=== PATIENT | male | born 1955 | race Caucasian/White ===

== ENCOUNTER 2021-02-04 16:03 | Inpatient (IN) | payer OTHER, MEDICARE, SELFPAY ==
[2021-02-04 18:08] VITALS: BP 169/99; PULSE 77; RESP 20; TEMP 36.7; O2SAT 84; BMI 48.8
[2021-02-04 18:19] VITALS: BP 165/128; PULSE 71; RESP 20; TEMP 36.7; O2SAT 91
--- NOTE | 2021-02-04 19:19 | XRR_ITS ---
PROCEDURE INFORMATION: Exam: XR Right Tibia and Fibula Exam date and time: 02/04/2021 7:19 PM Age: 65 years old Clinical indication: Pain; Lower leg; Right; Additional info: Leg infection TECHNIQUE: Imaging protocol: XR Right tibia and fibula. Views: 2 views. COMPARISON: No relevant prior studies available. FINDINGS: Bones/joints: There is moderate degenerative disease at the knee. The tibia and fibula are unremarkable. The ankle is normal. Soft tissues: There is diffuse soft tissue swelling in the lower leg and ankle. XR/XR tibia fibula RT 2V [id number] IMPRESSION: 1. No acute osseous abnormality. 2. Diffuse soft tissue edema in the lower leg. Radiation Dose CTDIVOL = (mGy): DLP = (mGy-cm)
--- NOTE | 2021-02-04 19:19 | XRR_ITS ---
PROCEDURE INFORMATION: Exam: XR Left Tibia and Fibula Exam date and time: 02/04/2021 7:19 PM Age: 65 years old Clinical indication: Pain; Lower leg; Left; Additional info: Leg infection TECHNIQUE: Imaging protocol: XR Left tibia and fibula. Views: 2 views. COMPARISON: No relevant prior studies available. FINDINGS: Bones/joints: There is mild degenerative disease at the knee. The tibia and fibula are normal. The ankle is normal. Soft tissues: There is diffuse soft tissue edema in the lower leg. XR/XR tibia fibula LT 2V [id number] IMPRESSION: 1. No acute osseous abnormality. 2. Soft tissue edema in the lower leg. Radiation Dose CTDIVOL = (mGy): DLP = (mGy-cm)
[2021-02-04 19:54] LABS: Basophils # 0.1 10^3/uL (0.0-0.1); Eosinophils # 0.2 10^3/uL (0.0-0.8); Eosinophils % 2.7 %; Hematocrit 53.7 % (42.0-52.0); Lymphocytes # 1.1 10^3/uL (0.8-4.8); Lymphocytes % 12.6 %; Mean Corpuscular HGB Conc 31.7 g/dL (30.0-36.0); Mean Corpuscular Volume 104.3 fl (80-94); Mean Platelet Volume 9.2 fL (7.4-10.4); Monocytes # 0.8 10^3/uL (0.2-0.9); Monocytes % 9.9 %; Neutrophils # 6.18 10^3/uL (1.8-7.7); Neutrophils % 73.6 %; Nucleated Red Blood Cells % 0 %; Platelet Count 260 10^3/cmm (130-400); Red Blood Count 5.15 10^6/uL (4.1-5.3); Red Cell Distribution Width 14.3 % (12.1-15.1); White Blood Count 8.4 10^3/uL (4.0-10.0)
[2021-02-04] MEDS: HYDROmorphone 1 mg/mL INJ 1 mL IVP (20:03)
[2021-02-04] MEDS: piperacillin-tazobactam 4.5 GM in sodium chloride 0.9% (plus) 50 ML IV (20:03)
[2021-02-04 20:09] LABS: Lactate (Lactic Acid level) 1.2 mmol/L (0.5-2.2)
[2021-02-04 20:10] LABS: Anion Gap 10.2 (5-19); Blood Urea Nitrogen 12 mg/dL (8-23); C Reactive Protein 36.4 mg/L (0.0-4.9); Calcium 9.2 mg/dL (8.5-10.5); Carbon Dioxide 36 mmol/L (22-29); Chloride 99 mmol/L (98-107); Glomerular Filtration Rate 135.2 mL/min (90-130); Glucose 95 mg/dL (65-115); Osmolality Calculated 292 mOsm/kg (285-295); Potassium 4.2 mmol/L (3.5-5.1); Sodium 141 mmol/L (136-145)
--- NOTE | 2021-02-04 20:11 | W.ED.GENADLT ---
HPI - General Adult General: Chief complaint: Wound/Laceration Stated complaint: [facility] Time Seen by Provider: 02/04/21 17:16 History of Present Illness: HPI narrative: Patient is a 65-year-old male with a history of chronic venous stasis who presents the emergency room with 2 weeks of worsening lower extremity infection. Patient was initially seen 2 weeks ago not at home emergency room and was prescribed amoxicillin for weeping of both legs. Since then, patient has noticed crusting and worsening pain in the legs bilaterally. Patient presents the emergency room today given worsening symptoms. Patient says that he has had extreme pain in the lower extremity. Denies any fever or chills, pus formation but has noticed significant foul smell in the legs. Onset:2 weeks ago Duration:2 weeks Location:home Severity:moderate Review of Systems Narrative: Constitutional: No fever, no chills. HEENT: No vision changes CV: No chest pain, no palpitations PULM: no cough, no dyspnea. GI: No abdominal pain, no N/V/D. : No dysuria MSKEL: No muscle pain SKIN: +crusting scaly wounds circumferentially on the legs NEURO: No headache, no focal weakness. HEME: No visible bruises PSYCH: Normal mood PFSH ED PFSH: Social History (Updated 05/04/19 @ 09:07 by Chilango Greco LPN) Smoking and tobacco status: current every day smoker Alcohol intake: never Physical Exam Narrative: EXAM NARRATIVE: Head: Atraumatic Eyes: PERRL, conjunctiva without injection ENT: Mucous membrane moist NECK: Supple, ROM intact LUNGS: LCTAB, no crackles/rhonchi CV: RRR ABDOMEN: Soft, nontender in all quadrants EXTREMITY: 3+ lower extremity edema with circumferential crusting tender to palpation, no erythema/crepitus/or bulla. One area of ulceration on the posterior aspect of the L leg. Neurovascular exam intact in the lower extremities. SKIN: No rash or erythema NEURO: Awake and alert, no focal motor deficits PSYCH: Normal mood and affect Course Vital Signs: Vital signs: Vital Signs Temperature 98.0 F 02/04/21 18:19 Pulse Rate 74 02/04/21 20:17 Respiratory Rate 20 H 02/04/21 20:17 Blood Pressure 133/80 02/04/21 20:17 Pulse Oximetry 94 02/04/21 20:17 MDM - General Adult MDM Narrative: Medical decision making narrative: Patient is a 65-year-old male presenting to the emergency room with worsening infection of lower extremity bilaterally x2 weeks. On exam, patient has significant crusting and excoriation of the lower extremity suggestive possible superimposed Pseudomonas infection over lower extremity edema. Lab work-up showed white count 8.4. Patient is hemoconcentrated at 17.0. Patient status post 1 L fluid. Patient is given vancomycin and Zosyn for coverage of empiric infection. Significant nature of the infection, patient will be at the hospital for observation and to antibiotics. Disposition: Admission Lab Data: Labs: Lab Results 02/04/21 02/04/21 02/04/21 19:40 19:40 19:40 WBC 8.4 10^3/uL 10^3/ uL (4.0-10.0) RBC 5.15 10^6/uL 10^6 /uL (4.1-5.3) Hgb 17.0 g/dL H g/dL (11.7-16.6) Hct 53.7 % H % (42.0-52.0) MCV 104.3 fl H fl (80-94) MCH 33.0 pg pg (28.0-34.0) MCHC 31.7 g/dL g/dL (30.0-36.0) RDW 14.3 % % (12.1-15.1) Plt Count 260 10^3/cmm 10^3 /cmm (130-400) MPV 9.2 fL fL (7.4-10.4) Neut % (Auto) 73.6 % % Lymph % (Auto) 12.6 % % Antelope % (Auto) 9.9 % % Eos % (Auto) 2.7 % % Baso % (Auto) 1.0 % % Neut # (Auto) 6.18 10^3/uL 10^3 /uL (1.8-7.7) Lymph # (Auto) 1.1 10^3/uL 10^3/ uL (0.8-4.8) Antelope # (Auto) 0.8 10^3/uL 10^3/ uL (0.2-0.9) Eos # (Auto) 0.2 10^3/uL 10^3/ uL (0.0-0.8) Baso # (Auto) 0.1 10^3/uL 10^3/ uL (0.0-0.1) Nucleated RBC % (a uto) 0 % % Nucleated RBCs # 0.0 /100WBC /100W BC ESR Cancelled Sodium 141 mmol/L mmol/L (136-145) Potassium 4.2 mmol/L mmol/L (3.5-5.1) Chloride 99 mmol/L mmol/L (98-107) Carbon Dioxide 36 mmol/L H mmol/ L (22-29) Anion Gap 10.2 (5-19) BUN 12 mg/dL mg/dL (8-23) Creatinine 0.6 mg/dL L mg/dL (0.7-1.2) GFR Calculation 135.2 mL/min H mL /min (90-130) Glucose 95 mg/dL mg/dL (65-115) Calculated Osmolal ity 292 mOsm/kg mOsm/ kg (285-295) Lactate Calcium 9.2 mg/dL mg/dL (8.5-10.5) C-Reactive Protein 36.4 mg/L H mg/L (0.0-4.9) 02/04/21 19:40 WBC RBC Hgb Hct MCV MCH MCHC RDW Plt Count MPV Neut % (Auto) Lymph % (Auto) Antelope % (Auto) Eos % (Auto) Baso % (Auto) Neut # (Auto) Lymph # (Auto) Antelope # (Auto) Eos # (Auto) Baso # (Auto) Nucleated RBC % (a uto) Nucleated RBCs # ESR Sodium Potassium Chloride Carbon Dioxide Anion Gap BUN Creatinine GFR Calculation Glucose Calculated Osmolal ity Lactate 1.2 mmol/L mmol/L (0.5-2.2) Calcium C-Reactive Protein Discharge Plan Discharge Patient Disposition: Admitted As Inpatient Clinical Impression: Leg abrasion, infected Condition: Stable Coding Level of Care Code ED Production Machine Shop Supervisor for Karina Altman
[2021-02-04 20:17] VITALS: BP 133/80; PULSE 74; RESP 20; O2SAT 94
[2021-02-04 20:22] LABS: SARS Covid-2 Antigen Negative (Negative)
[2021-02-04 21:00] VITALS: BP 157/72; PULSE 75; RESP 20; O2SAT 93
[2021-02-04 22:26] VITALS: BP 145/68; PULSE 78; RESP 20; O2SAT 92
[2021-02-04] MEDS: vancomycin 1,000 MG in sodium chloride 0.9% 250 ML 250 MG IV (22:42)
--- NOTE | 2021-02-04 23:09 | PC.NURSE ---
Gave pt sandwich and juice.
--- NOTE | 2021-02-04 23:46 | PC.NURSE ---
Pt sat on side of bed to urinate into urinal; assisted pt back into bed and positioned for comfort.
[2021-02-04] MEDS: nicotine 21 mg Patch 1 PATCH TRANSDERMA (23:49)
[2021-02-05] VITALS (18 sets, daily range): BP systolic 100–142; BP diastolic 62–92; PULSE 71–90; RESP 16–23; TEMP 36.6–36.9; O2SAT 90–100
[2021-02-05] MEDS: enoxaparin 40 mg/0.4 mL Syringe SUBCUT (01:22)
--- NOTE | 2021-02-05 01:41 | PC.PHAR ---
Pharmacokinetic dosing service Date: 02/05/21 Time: 129 Objective: Patient: Alondra Carolina Floor: ED Age: 65 yo Serum creatinine: 0.6 mg/dL Height: 71.0 Inches Weight (kg): 157.757 Diagnosis: Relevant medical/social history: Cultures and sensitivities: Other labs: Assessment: IBW (kg): 75.30 Dosing wt(kg): 108.3 Estimated Creatinine clearance (ml/min): 130 Clearance limited to 130 ml/min to reduce risk of overdosing. CRCL method: Cockcroft and Gault using ibw(default). Drug selected: Vancomycin Loading dose (mg): 0 Vd (liters): 97.5 (factor used: 0.9 L/kg) Jefferson (hr-1): 0.112 Half life (hrs): 6.19 Recommended dose: 2000 mg Interval: 8 hrs Infusion time (hrs): 1.5 Predicted peak (mcg/mL): 31.9 Predicted trough (mcg/mL): 15.40 Adjusted body weight was selected for vancomycin dosing. To switch back, select the total body weight option above. Renal function is stable [ ] /unstable [ ] Recommendations: Give Vancomycin 2000 mg q 8 hrs with an expected Cpeak of 31.9 mcg/ml and an expected Ctrough of 15.40 mcg/ml Renal dosing of other antibiotics (review renal dosing of other medications and list guidelines here): Thank you for the consult, will continue to follow. Signature: Iraida Kelly [facility]
[2021-02-05] MEDS: vancomycin 1,000 MG in sodium chloride 0.9% 250 ML 250 MG IV (02:12)
--- NOTE | 2021-02-05 02:42 | PM.HP ---
Providers/Chief Complaint Admitting Physician: Maryam Chin MD Primary Care Provider: Emy Russ MD Chief Complaint: sores on legs, sent by [facility] History of Present Illness Alondra Carolina is a 65 year old male with a past medical history COPD on home oxygen 2 to 3 L/min, chronic active smoker, chronic lower extremity swelling, lymphedema, recently admitted at [facility] for bilateral lower extremity cellulitis and source per his description. Discharged on amoxicillin per his history. [facility] and there was concern for left lower extremity cellulitis and open wounds for which she was sent over to the emergency room. Here he is noted to have bilateral extensive changes of stasis dermatitis, chronic lymphedema, bilateral lower extremity warm and erythematous, left greater than right at this time. There is also noted to be superficial weeping ulcerations over the left calf which patient states is new. He was recently discharged from [facility] with Lasix and states he has lost 17 pounds since discharge. He estimates his lower extremity swelling to actually be improved over his most recent admission at an outside hospital. no H/o DM. States he had venous and arterial imaging 2 weeks ago during above hospitalization, however states that visualization was difficult. He was told changes are related to lymphedema. Patient is also known to be a chronic smoker, has a history of sleep apnea however noncompliant with CPAP, also started on supplemental O2 reportedly related to his COPD. He is also supposed to be on home nebulization and inhalers, however ran out of the medications and has not used them in a while. No fever chills or other constitutional symptoms. Review of Systems General: Reports: 10 or more systems reviewed and unremarkable except in HPI and below Const: Denies: fever(s), chills or body aches Eyes: Denies: change in vision, blurry vision or photophobia ENMT: Reports: hoarseness; Denies: throat pain, enlarged tonsils, odynophagia or nasal congestion Card: Denies: chest pain, palpitations, irregular heart rhythm, edema, swelling of feet/ankles, lightheadedness, pre-syncope, dyspnea on exertion or orthopnea Resp: Denies: dyspnea, productive cough, non-productive cough, wheezing, stridor, pain on inspiration, change in phlegm color, hemoptysis or chest congestion GI: Denies: abdominal pain, nausea, vomiting, hematemesis, coffee ground emesis, dysphagia, heartburn, diarrhea, constipation, GI cramping, change in stool character, hematochezia or melena : Denies: flank pain, dysuria, urinary frequency, urinary urgency, urinary hesitancy or hematuria Musc: Denies: neck pain, back pain, extremity pain, joint swelling, joint warmth or deformity Neuro: Denies: headache(s), numbness in extremities, weakness in extremities, sensory changes, difficulty walking, frequent falls, dizziness, vertigo, behavioral changes, Slurred speech present or seizure-like activity Psych: Denies: anxiety, depression, suicidal ideation or homicidal ideation Endo: Denies: polyuria, polydipsia, tired all the time, cold intolerance or hot flashes Rohit/Lymph: Denies: easy bruising or easy bleeding Medications/Allergies Home Medications Medication Instructions Recorded Confirmed Last Taken Type aspirin 325 mg tablet 325 mg PO DAILY 05/04/19 05/04/19 Unknown History furosemide 40 mg tablet 40 mg PO DAILY PRN 05/04/19 05/04/19 Unknown History morphine 15 mg immediate release 15 mg PO Q4H PRN tab 05/04/19 05/04/19 Unknown History tablet morphine 60 mg capsule,extended 60 mg PO TID cap 05/04/19 05/04/19 Unknown History release 24 hr multiphase Allergies Allergy/AdvReac Type Severity Reaction Status Date / Time No Known Allergies Allergy Verified 05/04/19 09:02 PFSH Acute PFSH: Medical History COPD (chronic obstructive pulmonary disease) Hypertension Sleep apnea Tobacco dependence Social History Smoking and tobacco status: current every day smoker Alcohol intake: never Vitals/I&O/Wt Last Vital Signs Temp 98.0 F 02/04/21 18:19 Pulse 78 02/04/21 22:26 Resp 20 H 02/04/21 22:26 BP 145/68 02/04/21 22:26 Pulse Ox 92 02/04/21 22:26 02/04/21 02/04/21 02/05/21 14:59 22:59 06:59 Intake Total 50 / 50 250 / 300 Balance 50 / 50 250 / 300 Weight last 48 hrs Weight 158.757 kg Physical Exam Narrative: EXAM NARRATIVE: General: No acute distress, AO x3, obese HEENT: PERRLA, pupils bilaterally equal and reactive, pallors not present, on supplemental O2 3 L/min via nasal cannula Chest: Bilateral coarse breath sounds CVS: S1-S2 regular, no murmurs, no tachycardia, no gallops, no rubs Abdomen: Soft, nontender, no organomegaly, bowel sounds present Neuro: No focal deficits, no facial deformity, AO x3, power 5/5 in all limbs Extremities: Bilateral lower extremity with changes of lymphedema, stasis dermatitis, verrucous skin changes. Data : 02/04/21 19:40 02/04/21 19:40 Micro: Microbiology 02/04/21 19:40 Blood Culture - Preliminary Blood SPECIMEN COLLECTED 02/04/21 19:30 Blood Culture - Preliminary Blood SPECIMEN COLLECTED A&P Assessment and plan (1) Cellulitis: Bilateral chronic longstanding lymphedema with pain erythema and warmth, left worse than right concerning for cellulitis. Weeping ulceration noted over the left calf. Reportedly with failure of outpatient oral antibiotics which were prescribed 2 weeks ago at [facility]. Started empirically on Zosyn and vancomycin, continue same and monitor for improvement. Obtain records from [facility], patient reportedly underwent venous and arterial studies and an echocardiogram which have been requested. Status: Acute (2) Lymphedema: Longstanding, OT evaluation for lymphedema wraps. Patient has also been referred as an outpatient to wound care clinic however has not made the appointment just yet. Status: Acute Additional A&P Information COPD: Not currently exacerbated. DuoNeb inhalation every 6 hours along with budesonide inhalation every 12 hours. No indication for steroids. Supplemental O2 to keep oxygen saturation 88 to 90%. Oxygen requirement at recent baseline. Chronic active smoker: Nicotine patch. Attestations Medical Necessity Statement*: Anticipate less than 2 midnight admission for management of above issues Coding Level of Care Code Acute Sulfonator Operator for [facility] P[facility]rez Diagnoses Cellulitis L03.90 Lymphedema I89.0
--- NOTE | 2021-02-05 03:06 | PC.NURSE ---
Assisted pt to sit on side of bed for comfort.
[2021-02-05] MEDS: morphine 4 mg/mL SDV 1 mL 2 MG IVP ×3 (03:24→19:46)
[2021-02-05] MEDS: ondansetron 2 mg/ML SDV 2 mL 4 MG IVP ×2 (03:25→13:26)
[2021-02-05 03:49] LABS: Basophils # 0.1 10^3/uL (0.0-0.1); Basophils % 0.6 %; Eosinophils # 0.2 10^3/uL (0.0-0.8); Eosinophils % 1.7 %; Hemoglobin 16.3 g/dL (11.7-16.6); Lymphocytes # 0.7 10^3/uL (0.8-4.8); Lymphocytes % 7.4 %; Mean Corpuscular HGB Conc 31.3 g/dL (30.0-36.0); Mean Corpuscular Hemoglobin 32.6 pg (28.0-34.0); Mean Platelet Volume 9.1 fL (7.4-10.4); Monocytes # 0.9 10^3/uL (0.2-0.9); Monocytes % 9.6 %; Neutrophils # 7.85 10^3/uL (1.8-7.7); Neutrophils % 80.4 %; Nucleated Red Blood Cells % 0 %; Platelet Count 248 10^3/cmm (130-400); Red Cell Distribution Width 14.3 % (12.1-15.1); White Blood Count 9.8 10^3/uL (4.0-10.0)
[2021-02-05] MEDS: piperacillin-tazobactam 3.375 GM in sodium chloride 0.9% (plus) 50 ML IV ×3 (04:14→19:47)
[2021-02-05 04:22] LABS: Alanine Aminotransferase 9 U/L (0-41); Albumin Level 3.4 g/dL (3.5-5.2); Alkaline Phosphatase 94 IU/L (40-130); Anion Gap 15.2 (5-19); Aspartate Amino Transferase 11 U/L (0-40); Blood Urea Nitrogen 12 mg/dL (8-23); Calcium 8.7 mg/dL (8.5-10.5); Carbon Dioxide 29 mmol/L (22-29); Chloride 97 mmol/L (98-107); Globulin 3.4 g/dL (1.3-4.6); Glomerular Filtration Rate 135.2 mL/min (90-130); Glucose 94 mg/dL (65-115); Osmolality Calculated 284 mOsm/kg (285-295); Potassium 4.2 mmol/L (3.5-5.1); Sodium 137 mmol/L (136-145); Total Bilirubin 0.9 mg/dL (0.15-1.2); Total Protein 6.8 g/dL (6.6-8.7)
[2021-02-05] MEDS: ipratropium-albuterol 3 mL Neb INHALATION ×4 (04:36→19:24)
[2021-02-05 04:41] LABS: NT Pro B Type Natriuretic Pept 294 pg/mL (0-125)
[2021-02-05] MEDS: budesonide 0.5 mg/2 mL Neb INHALATION ×2 (08:47→19:24)
--- NOTE | 2021-02-05 09:28 | PC.OT ---
OT EVALUATION ORDERS RECEIVED FOR LYMPHEDEMA WRAPS. THIS THERAPIST IS NOT CERTIFIED IN LYMPHEDEMA THERAPY; OTHER OT WHO IS; IS NOT AVAILABLE TODAY. SPOKE WITH DR. GAONA; PERMISSION RECEIVED TO CANCEL OT ORDER AND ENTER ORDERS FOR PHYSICAL THERAPY THAT DOES HAVE CERTIFIED LYMPHEDEMA THERAPISTS AVAILABLE.
[2021-02-05] MEDS: FUROsemide 40 mg Tablet PO (09:36)
[2021-02-05] MEDS: aspirin 325 mg EC Tablet PO (09:36)
[2021-02-05] MEDS: pantoprazole DR 40 mg Tablet PO (09:36)
--- NOTE | 2021-02-05 12:19 | USCV_ITS ---
Alondra Carolina Age: 65 Gender: M : 1955 Exam Date: 02/05/2021 13:20 Ordering Phys: Steven Arnold MD Technologist: Exam Location: [facility] [place] Indication: ? PAD RIGHT LEFT Brachial 120.00 mmHg Brachial 120.00 mmHg Pressure (mmHg) Waveform Pressure (mmHg) Waveform 120.00 SUPERINTENDENT AUTOMOTIVE 120.00 120.00 DPA 120.00 1.00 Ankle/Brachial Index 1.00 FINDINGS Resting JUNIOR 1.0 on both sides CONCLUSIONS Normal resting ABIs bilaterally, suggesting no significant arterial obstruction Dr Minna Welch MD [facility] (Electronically Signed) Final Date: 06 February 2021 20:22 S
--- NOTE | 2021-02-05 12:19 | USCV_ITS ---
Alondra Carolina Age: 65 Gender: M : 1955 Exam Date: 02/05/2021 13:10 Ordering Phys: Steven Arnold MD Technologist: Exam Location: [facility] [place] Indication: BILAT EDEMA HISTORY: Lower extremity swelling. PROCEDURES: The venous duplex Doppler examination of both lower extremities was performed in the standard fashion. The following venous structures were evaluated: common femoral vein, profunda vein, proximal portion of the greater saphenous vein, superficial femoral vein, and the popliteal vein. In addition, the posterior tibial and peroneal trunk were evaluated. FINDINGS: Normal 2-D Doppler and augmentation and compressibility throughout the lower extremity venous structures. Additional imaging through the proximal calf veins also reveals no thrombus. Limited evaluation of the greater saphenous vein is patent with no thrombus.. CONCLUSIONS No evidence of right lower extremity DVT. No evidence of left lower extremity DVT. Jani Bar MD (Electronically Signed) Final Date: 05 February 2021 17:14 S
--- NOTE | 2021-02-05 12:19 | USCV_ITS ---
Alondra Carolina Age: 65 Gender: M : 1955 Exam Date: 02/05/2021 12:47 Ordering Phys: Steven Arnold MD Technologist: Exam Location: [facility] [place] Indication: BP: 109 / 74 HR: 72 Rhythm: Sinus Technical Quality: Adequate MEASUREMENTS (Male / Female) Normal Values 2D ECHO LV Diastolic Diameter PLAX 2.9 cm 4.2 - 5.9 / 3.9 - 5.3 cm LV Systolic Diameter PLAX 2.0 cm IVS Diastolic Thickness 1.8 cm 0.6 - 1.0 / 0.6 - 0.9 cm IVS Systolic Thickness 1.9 cm LVPW Diastolic Thickness 1.6 cm 0.6 - 1.0 / 0.6 - 0.9 cm LVPW Systolic Thickness 1.6 cm LVOT Diameter 2.1 cm LV Ejection Fraction 2D Teich 60.9 % LV Ejection Fraction MOD 2C 76.1 % LV Ejection Fraction 2C AL 76.0 % LA Diameter 4.1 cm M-MODE Aortic Annulus Diameter 4.0 cm LA Ao Ratio MM 1.1 MV E Point Septal Separation 0.9 cm DOPPLER AV Peak Velocity 283.0 cm/s LVOT Peak Velocity 94.0 cm/s AV Area Cont Eq vti 1.2 cm squared AV Area Cont Eq pk 1.1 cm squared MV Area PHT 5.0 cm squared Mitral E to A Ratio 1.2 MV E' Velocity 61.0 cm/s TR Peak Velocity 209.0 cm/s TR Peak Gradient 17.5 mmHg TV Peak E Velocity 58.0 cm/s Right Atrial Pressure 3.0 mmHg Pulmonary Artery Systolic Pressu 20.5 mmHg FINDINGS Left Ventricle Normal left ventricular cavity size. Normal left ventricular systolic function. Left ventricular ejection fraction is estimated at 65 %. No regional wall motion abnormalities. Flattened septum in systole consistent with right ventricle pressure overload. Right Ventricle Moderately dilated right ventricle with moderately decreased right ventricle systolic function. RVSP could not be calculated due to incomplete tricuspid regurgitation velocity profile. Right Atrium Moderately increased right atrial size. Left Atrium Left atrium not well visualized. Normal left atrial size. Mitral Valve Moderate mitral annular calcification. Aortic Valve Aortic valve not well visualized. Moderate aortic valve stenosis, peak velocity 2.8 m/s, peak gradient 31 mmHg, mean gradient 14.7 mmHg, PEDRO 1.2 cm squared. No aortic valve regurgitation. Tricuspid Valve Tricuspid valve not well visualized. Pulmonic Valve Pulmonic valve not well visualized. Pericardium No pericardial effusion. Aorta Aorta not well visualized. CONCLUSIONS 1. This is a technically difficult study. Ultrasound enhancing agent was used per protocol. 2. Normal left ventricular cavity size and systolic function. Left ventricular ejection fraction is estimated at 65 %. No regional wall motion abnormalities. Flattened septum in systole consistent with right ventricle pressure overload. 3. Moderately dilated right ventricle with moderately decreased right ventricle systolic function. 4. Moderate aortic valve stenosis, peak velocity 2.8 m/s, peak gradient 31 mmHg, mean gradient 14.7 mmHg, PEDRO 1.2 cm squared. 5. No prior similar studies to compare. Samantha Means MD (Electronically Signed) Final Date: 05 February 2021 18:04 S
[2021-02-05] MEDS: FUROsemide 10 mg/mL SDV 10mL 60 MG IVP (13:23)
[2021-02-05] MEDS: perflutren protein-a microsphr 0.22 mg/mL SDV 3 mL IV (13:25)
[2021-02-05 13:27] LABS: D Dimer 3.57 ug/mIFEU (0-0.59)
[2021-02-05 13:37] LABS: Procalcitonin 0.04 ng/mL (0-0.5); Thyroid Stimulating Hormone 1.33 uIU/mL (0.27-4.20)
[2021-02-05 13:48] LABS: Iron 77 ug/dL (59-158); Percent Saturation 19.7 % (20-50); Total Iron Binding Capacity 389 mcg/dl; Unsaturated Iron Binding 312 ug/dL (112-347)
--- NOTE | 2021-02-05 14:31 | CT_ITS ---
WS: [id number] CTA OF THE CHEST WITH PULMONARY EMBOLISM PROTOCOL TECHNIQUE: High-resolution contrast enhanced CTA of the chest with coronal and sagittal reformatted i mages with pulmonary embolism protocol. MIP images are also reviewed. CLINICAL INFORMATION: elevated dimer, hypoxia COMPARISON: None. DLP: 648.[address] scans at [facility] use at least one of these dose optimization techniques: automated e xposure control; mA and/or kV adjustment per patient size (includes targeted exams where dose is matc hed to clinical indication); or iterative reconstruction. FINDINGS: Some images are degraded due to body habitus and beam hardening artifact. Proximal main pulmonary arteries are normal. Normal visualized proximal segmental pulmonary arteries. Distal vessels poorly opacified. No definite evidence of pulmonary embolus considering limitations. Aortic calcification. Coronary calcification. Small esophageal hiatal hernia. Moderate chronic emphysematous changes. Slight bibasilar atelectasis. No focal pneumonia or pleural fluid. No mediastinal or hilar lymphadenopathy. No axillary lymphadeno melissa. Hypertrophic changes thoracic spine.Hepatic cyst undersurface right hepatic lobe unchanged sin ce 2012. CT/CT angio chest PE protcl [id number] IMPRESSION: Evaluation somewhat limited due to body habitus and beam hardening artifact. 1. Proximal main pulmonary arteries are normal. No evidence of pulmonary embol us considering limitations. Distal vessels are poorly opacified. 2. Moderate chronic emphysematous changes. Bibasilar atelectasis. No focal pne umonia or pleural fluid. 3. Normal caliber thoracic aorta.
[2021-02-05] MEDS: iohexol 350 mg/mL 100 mL Btl IV (15:31)
--- NOTE | 2021-02-05 16:06 | PM.PN ---
Subjective Subjective: Interval history: Admitted overnight. Patient seen in the ER. Lying comfortably in bed on 5 L oxygen mask saturating 94%. Denies any nausea, vomiting, headache. States he has been having swelling in his legs on and off for many years getting worse over last couple of months again. States he was at an outside hospital for similar complaint few weeks ago. Also documents reviewed. Venous study done which of poor quality and negative for DVT. Patient states he has been diagnosed of obstructive sleep apnea in the past but not been able to use CPAP for few years as his CPAP broke and has never been able to get a new one. He states he has difficulty in breathing on lying down and usually sleeps in a recliner. Vitals/I&O/Wt Last Vital Signs Temp 98.1 F 02/05/21 07:24 Pulse 77 02/05/21 15:13 Resp 20 H 02/05/21 15:08 BP 135/92 02/05/21 11:04 Pulse Ox 94 02/05/21 15:08 02/05/21 02/05/21 02/05/21 06:59 14:59 22:59 Intake Total 250 / 300 50 / 50 Balance 250 / 300 50 / 50 Weight last 48 hrs Weight 158.757 kg Physical Exam Narrative: EXAM NARRATIVE: General: No acute distress, AO x3, morbidly obese HEENT: PERRLA, pupils bilaterally equal and reactive Chest: Bilateral bronchial breath sounds, bilateral decreased air entry all over the lung mcguire, diffuse rhonchi present all over the lung mcguire, fine crackles present bilateral lower zone CVS: S1-S2 regular, no murmurs, no tachycardia, no gallops, no rubs Abdomen: Soft, nontender, no organomegaly, bowel sounds present Neuro: No focal deficits, no facial deformity, AO x3, power 5/5 in all limbs Extremities: Bilateral lower limb swelling present with venous stasis dermatitis skin changes present up to mid level thigh, foul-smelling discharge on the right posterior. Data : 02/05/21 03:40 02/05/21 03:40 Micro: Microbiology 02/05/21 04:15 MRSA Culture - Final Nose 02/04/21 19:40 Blood Culture - Preliminary Blood SPECIMEN COLLECTED 02/04/21 19:30 Blood Culture - Preliminary Blood SPECIMEN COLLECTED A&P Assessment and plan (1) Cellulitis: Status: Acute (2) Lymphedema: Status: Acute (3) Hypoxia: Status: Acute (4) Sleep apnea: Status: Acute (5) Hypertension: Status: Acute (6) COPD (chronic obstructive pulmonary disease): Status: Acute Additional A&P Information Lower limb swelling: Most likely secondary lymphedema. Less likely cellulitis. Does have an open wound present at the posterior region on the left leg most likely an infected open wound. MRSA culture negative, blood cultures so far negative. For now continue with vancomycin and Zosyn empirically. Check procalcitonin, D-dimer. If D-dimer elevated will do lower limb Dopplers and CTA chest otherwise will do CT chest clean. PT/OT evaluation. Bilateral arterial duplex to rule out peripheral arterial disease. Start patient on Lyrica. Neuropathic pain: Most likely secondary to extensive lymphedema. We will check vitamin B12, folate levels. Lyrica as above. Hypoxia: Most likely secondary to a combination of OPD exacerbation and sleep apnea. Cannot rule out congestive heart failure given symptoms of PND. Check echocardiogram. IV Lasix 60 mg twice daily. Strict input output charting, daily weights. DuoNebs every 6 hour, budesonide twice daily. Less likely pneumonia. Hypertension: Goal blood pressure less than 140/90 mmHg. We will start antihypertensives accordingly. Check HbA1c, iron panel, lipid panel. We will consult case management for further assistance with CPAP arrangement as an outpatient. Full code. Lovenox for DVT prophylaxis Famotidine for PUD prophylaxis. Cardiac diet. Attestations Medical Necessity Statement*: Pilloelizabet Avtar Carolina is being changed to inpatient status as stay will now exceed 2 midnights. Ongoing hospital care is necessary for management of cellulitis, bilateral lymphedema, hypoxia Time Spent in Patient Care: Greater than 35 minutes (>than 50% of time spent in counselling and/or direct pt care on unit). 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
[2021-02-05 17:12] LABS: Vitamin B12 405 pg/mL (232-1245)
[2021-02-05 17:13] LABS: Folate Level 4.1 ng/mL (4.5-32.2)
--- NOTE | 2021-02-05 17:58 | PC.NURSE ---
Output 2000 ml of urine.
[2021-02-05] MEDS: pregabalin 50 mg Capsule PO (18:46)
[2021-02-05] MEDS: cyanocobalamin 1,000 mcg/mL SDV 1000 MCG IM (20:31)
[2021-02-05] MEDS: folic acid 1 mg Tablet PO (20:32)
[2021-02-05] MEDS: acetaminophen 1,000 MG/100 ML PIGGYBACK 400 MG IV (23:21)
[2021-02-05] MEDS: naloxone 0.4 mg/ml SDV IVP (23:22)
[2021-02-06] VITALS (16 sets, daily range): BP systolic 120–177; BP diastolic 65–90; PULSE 67–94; RESP 16–21; TEMP 36.3–38.8; O2SAT 88–95
[2021-02-06 00:12] LABS: ABG PH Result 7.38 (7.35-7.45); Arterial Blood Gas Hematocrit 46.6 % (42-52); Base Excess ABG 10.5 mmol/L (-2.0-2.0); Blood Gas Allen Test Pos; Blood Gas Sample Type Arterial; HCO3 ABG 38.7 mmol/L (22-26); PO2 ABG 62.8 mmHg (80.0-100.0)
[2021-02-06 00:13] LABS: Blood Gas Operator Identificat JB; Blood Gas Sample Site Radial, left; Oxygen Device OXY MASK
[2021-02-06 00:16] LABS: ABG PCO2 65.7 mmHg (35-45)
[2021-02-06] MEDS: enoxaparin 40 mg/0.4 mL Syringe SUBCUT (00:20)
[2021-02-06] MEDS: FUROsemide 10 mg/mL SDV 10mL 60 MG IVP ×2 (00:21→08:32)
[2021-02-06 01:06] LABS: Basophils % 0.5 %; Eosinophils # 0.1 10^3/uL (0.0-0.8); Eosinophils % 1.6 %; Hematocrit 46.8 % (42.0-52.0); Hemoglobin 14.7 g/dL (11.7-16.6); Lymphocytes # 0.7 10^3/uL (0.8-4.8); Lymphocytes % 8.3 %; Mean Corpuscular HGB Conc 31.4 g/dL (30.0-36.0); Mean Corpuscular Hemoglobin 32.7 pg (28.0-34.0); Mean Corpuscular Volume 104.2 fl (80-94); Mean Platelet Volume 9.6 fL (7.4-10.4); Monocytes # 0.7 10^3/uL (0.2-0.9); Monocytes % 9.1 %; Neutrophils # 6.45 10^3/uL (1.8-7.7); Neutrophils % 80.4 %; Nucleated Red Blood Cells % 0 %; Platelet Count 237 10^3/cmm (130-400); Red Blood Count 4.49 10^6/uL (4.1-5.3); Red Cell Distribution Width 14.3 % (12.1-15.1)
[2021-02-06 01:35] LABS: Magnesium 1.9 mg/dL (1.7-2.3)
[2021-02-06 01:36] LABS: Alanine Aminotransferase 8 U/L (0-41); Albumin Level 3.3 g/dL (3.5-5.2); Alkaline Phosphatase 81 IU/L (40-130); Anion Gap 14.7 (5-19); Aspartate Amino Transferase 9 U/L (0-40); Blood Urea Nitrogen 11 mg/dL (8-23); Calcium 8.4 mg/dL (8.5-10.5); Carbon Dioxide 28 mmol/L (22-29); Chloride 99 mmol/L (98-107); Cholesterol 126 mg/dL (0-200); Globulin 2.9 g/dL (1.3-4.6); Glomerular Filtration Rate 113.2 mL/min (90-130); Glucose 100 mg/dL (65-115); HDL Cholesterol 36 mg/dL (60-100); LDL Cholesterol Calculated 72 mg/dL (50-129); Osmolality Calculated 285 mOsm/kg (285-295); Potassium 3.7 mmol/L (3.5-5.1); Sodium 138 mmol/L (136-145); Total Bilirubin 0.6 mg/dL (0.15-1.2); Total Protein 6.2 g/dL (6.6-8.7); Triglycerides 92 mg/dL (0-150); VLDL Cholestrol Calculation 18 mg/dL (0-30)
[2021-02-06 01:38] LABS: Estmated Average Glucose 111; Hemoglobin A1C 5.5 % (4.0-6.0)
[2021-02-06] MEDS: ipratropium-albuterol 3 mL Neb INHALATION ×5 (02:20→19:39)
[2021-02-06] MEDS: piperacillin-tazobactam 3.375 GM in sodium chloride 0.9% (plus) 50 ML IV (03:43)
--- NOTE | 2021-02-06 06:00 | XR_ITS ---
WS: [id number] Portable AP upright chest, 02/06/2021 Clinical Data: Hypoxia Comparison: CTA chest, 02/05/2021 Findings: There are scattered nodules throughout both lungs which are probably chronic. There is a sm all left effusion. The heart is normal. The aortic arch and descending thoracic aorta are tortuous. N o pneumonia is seen. There is patchy atelectasis over the surface of both diaphragms. There is a dext roscoliosis. There is osteoarthritis of both shoulders. XR/XR chest 1V portable [id number] Impression: 1. Probable bibasilar atelectasis. 2. Atherosclerosis. 3. Chronic nodular lung disease.
[2021-02-06 07:54] LABS: ABG PH Result 7.34 (7.35-7.45); Arterial Blood Gas Hematocrit 48.4 % (42-52); Base Excess ABG 9.1 mmol/L (-2.0-2.0); Blood Gas Allen Test Pos; Blood Gas Sample Type Arterial; HCO3 ABG 38.4 mmol/L (22-26)
[2021-02-06 07:55] LABS: ABG PCO2 72.2 mmHg (35-45); Blood Gas Operator Identificat ED; Blood Gas Sample Site Radial, left; Oxygen Device BIPAP
[2021-02-06] MEDS: nicotine 21 mg Patch 1 PATCH TRANSDERMA (08:32)
[2021-02-06] MEDS: folic acid 1 mg Tablet PO ×2 (08:33→17:14)
[2021-02-06] MEDS: pantoprazole DR 40 mg Tablet PO (08:33)
[2021-02-06] MEDS: pregabalin 50 mg Capsule PO (08:33)
[2021-02-06] MEDS: aspirin 325 mg EC Tablet PO (08:33)
[2021-02-06] MEDS: budesonide 0.5 mg/2 mL Neb INHALATION (10:06)
--- NOTE | 2021-02-06 10:10 | PC.CHAP ---
Pastoral Care Encounter/Spiritual Assessment Type of Contact [] Declined area mechanic visit [] Patient/Family/Request visit [] Outpatient visit [] Follow-up visit [] Physician referral [] Code/Alert [] Routine visit [] Staff referral [] Actively dying [] Patient sleeping [] Family support [] [] Out of room [] Palliative care [] [] Receiving care in room [] Pre-surgical visit [] Trauma [] Long length of stay [] ICU visit [x] Other: Isolation Relational/Emotional Strength [] Patient feels connected with others/family/visitors/staff [] Distress [] Loneliness/isolation [] Abandonment Spirituality of Patient [] Person of Aster [] Attends Pentecostal of their Aster [] Believes in Prayer [] Reads Bible or Christian materials [] There are Spiritual issues to be addressed Aquaculture Program Director Interventions [] Prayer [] Active listening [] Non-anxious presence [] Spiritual/emotional support [] Crisis/trauma care [] Spiritual counseling [] Bereavement support [] Provided bereavement packet [] Provided Bible/devotional materials [] Provided toy/stuffed animal, coloring book to patient or family member [] Provided Communion [] Anointing/[place] [] Salvation [] Completed spiritual assessment [] Other: Impact on Illness or Injury [] Angry [] Fearful [] Anxious [] Often cries [] Exhaustion [] Unable to work [] Unable to attend congregation [] Unable to walk/stand [] Unable to read [] Unable to drive [] Unable to eat/drink [] Unable to sleep [] Unable to be with family [] Patient intubated [] Other: Summary Isolation Time spent with patient 5 mins
[2021-02-06 14:14] LABS: Coronavirus Test Green County Not Detected
--- NOTE | 2021-02-06 14:25 | P.PN_ITS ---
Subjective Subjective: Interval history: Overnight patient had a fever of 101 Fahrenheit. He also had episode of somnolence/lethargy for which she received Narcan. He was placed on BiPAP for hypercapnic and hypoxic respiratory failure. Repeat ABG today morning appreciated and he was placed back on 4 L oxygen nasal cannula, on examination sitting up in chair awake but lethargic. States he is feeling sleepy. Denies any nausea, vomiting, headache. COVID-19 PCR was sent out overnight for fever came back negative. Vitals/I&O/Wt Last Vital Signs Temp 97.4 F L 02/06/21 11:50 Pulse 67 02/06/21 11:50 Resp 17 02/06/21 11:50 BP 136/90 02/06/21 11:50 Pulse Ox 93 02/06/21 11:50 02/05/21 02/06/21 02/06/21 22:59 06:59 14:59 Intake Total 50.00 / 100.00 650 / 750.00 1030 / 1030 Output Total 1100 / 1100 Balance 50.00 / 100.00 -450 / -350.00 1030 / 1030 Weight last 48 hrs Weight 160.118 kg Weight 158.757 kg Physical Exam Narrative: EXAM NARRATIVE: General: No acute distress, AO x3, lethargic, morbidly obese HEENT: PERRLA, pupils bilaterally equal and reactive Chest: Bilateral bronchial breath sounds, bilateral decreased air entry all over the lung mcguire, diffuse rhonchi present all over the lung mcguire, fine crackles present bilateral lower zone CVS: S1-S2 regular, no murmurs, no tachycardia, no gallops, no rubs Abdomen: Soft, nontender, no organomegaly, bowel sounds present Neuro: No focal deficits, no facial deformity, AO x3, power 5/5 in all limbs Extremities: Bilateral lower limb swelling present with venous stasis dermatitis skin changes present up to mid level thigh, foul-smelling discharge on the right posterior. Urinary Catheter Management^: Tenorio: Cath Placed During This Visit: yes Urinary Catheter Date of Insertion: 02/05/21 Urinary Catheter Time of Insertion: 23:30 Data : 02/06/21 00:47 02/06/21 00:47 Micro: Microbiology 02/04/21 19:29 Wound Culture - Preliminary Leg - Drainage Gram Negative Rods Gram Negative Rods#2 02/06/21 00:53 Blood Culture - Preliminary Blood SPECIMEN COLLECTED 02/06/21 00:47 Blood Culture - Preliminary Blood SPECIMEN COLLECTED 02/04/21 19:30 Blood Culture - Preliminary Blood NEGATIVE TO DATE 02/04/21 19:40 Blood Culture - Preliminary Blood NEGATIVE TO DATE 02/05/21 04:15 MRSA Culture - Final Nose A&P Assessment and plan (1) Acute on chronic respiratory failure with hypoxia and hypercapnia: Status: Acute (2) Sleep apnea: Status: Acute (3) COPD (chronic obstructive pulmonary disease): Status: Acute (4) Cellulitis: Bilateral chronic longstanding lymphedema with pain erythema and warmth, left worse than right concerning for cellulitis. Weeping ulceration noted over the left calf. Reportedly with failure of outpatient oral antibiotics which were prescribed 2 weeks ago at [facility]. Started empirically on Zosyn and vancomycin, continue same and monitor for improvement. Obtain records from [facility], patient reportedly underwent venous and arterial studies and an echocardiogram which have been requested. Status: Acute (5) Hypertension: Status: Acute (6) Lymphedema: Longstanding, OT evaluation for lymphedema wraps. Patient has also been referred as an outpatient to wound care clinic however has not made the appointment just yet. Status: Acute (7) Moderate aortic stenosis: Status: Acute (8) Chronic right-sided CHF (congestive heart failure): Status: Acute Additional A&P Information Acute on chronic hypoxic and hypercapnic respiratory failure: Most likely combination of COPD and sleep apnea exacerbation secondary to excessive pain medication and Lyrica. CPAP overnight. Oxygen supplementation keeping saturation over 88%. Stop Lyrica. Morphine 1 mg every 4 hour as needed. Will have to continue morphine as patient is on standing morphine as at home to prevent from withdrawal. DuoNebs every 6 hour, budesonide twice daily. Wean Solu-Medrol to 40 mg IV daily. COVID-19 PCR negative, remove isolation precautions. Less likely pneumonia. Right-sided heart failure: Echocardiogram done showed a normal LVEF and systolic function of 65%, moderately dilated RV and moderate decreased RV systolic function, moderate aortic valve stenosis. Continue with IV Lasix 60 mg twice daily, strict input output charting, daily weights. Lower limb swelling: Most likely secondary lymphedema. Less likely cellulitis. Does have an open wound present at the posterior region on the left leg most likely an infected open wound. MRSA culture negative, blood cultures so far negative. Switch Zosyn to imipenem. MRSA negative, can stop vancomycin. For now we will continue to follow-up with wound culture results. Wound care, lymphedema wraps. Lower limb Doppler results appreciated, arterial duplex pending. Check procalcitonin, D-dimer. If D-dimer elevated will do Hypertension: Goal blood pressure less than 140/90 mmHg. We will start antihypertensives accordingly. HbA1c 5.5, iron panel and lipid panel results appreciated. Start on oral folic acid. Full code. Lovenox for DVT prophylaxis Famotidine for PUD prophylaxis. Cardiac diet. 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
[2021-02-06 16:41] LABS: Vancomycin Trough 28.1 ug/mL (10-15)
[2021-02-06] MEDS: morphine 4 mg/mL SDV 1 mL 1 MG IVP ×2 (17:14→21:37)
[2021-02-06 19:56] LABS: ABG PH Result 7.45 (7.35-7.45); Alveolar-Arterial Oxygen Gradi 2.8 mmHg (5-10); Arterial Blood Gas Hematocrit 47.1 % (42-52); Blood Gas Allen Test Pos; Blood Gas Sample Type Arterial; Carboxyhemoglobin 1.4 %THgb (0.4-20.1); HCO3 ABG 39.8 mmol/L (22-26); HGB O2 Sat 90.1 % (95-100); Ionized Calcium Level - ABG 1.2 mmol/L (1.1-1.4); Methemoglobin 0.7 % (0.4-1.5); PO2 ABG 59.5 mmHg (80.0-100.0); Potassium Level - ABG 3.6 mmol/L (3.5-5.0); Total Hemoglobin 15.4 g/dL (14-18)
[2021-02-07] VITALS (15 sets, daily range): BP systolic 112–155; BP diastolic 76–90; PULSE 71–113; RESP 16–22; TEMP 36.6–37.4; O2SAT 89–98; BMI 49.6
[2021-02-07] MEDS: enoxaparin 40 mg/0.4 mL Syringe SUBCUT (00:22)
[2021-02-07] MEDS: FUROsemide 10 mg/mL SDV 10mL 60 MG IVP ×3 (00:37→23:52)
[2021-02-07] MEDS: morphine 4 mg/mL SDV 1 mL 1 MG IVP ×4 (01:41→23:52)
[2021-02-07] MEDS: ipratropium-albuterol 3 mL Neb INHALATION ×4 (03:11→20:17)
[2021-02-07] MEDS: ondansetron 2 mg/ML SDV 2 mL 4 MG IVP (03:29)
[2021-02-07] MEDS: budesonide 0.5 mg/2 mL Neb INHALATION ×2 (08:11→20:17)
--- NOTE | 2021-02-07 08:35 | XR_ITS ---
WS: [id number] Acute abdomen series, 02/07/2021 Clinical Data: vomiting Comparison: None. Findings: In the chest there are no nodules, masses or effusions. The heart is normal. The pulmonary vascularity is not increased. Patchy bilateral basilar pulmonary opacities remain unchanged. These op acities probably represent atelectasis but pneumonia is a possibility. The aortic arch and descending thoracic aorta show tortuosity. There are small nodules throughout both lungs. There is osteoarthrit is of both shoulders. No free air is seen beneath the diaphragms. No abnormal intra-abdominal masses or calcifications are seen. There is air in the stomach and the colon. There is a large amount of fecal material throughout the colon. XR/XR acute abdomen series [id number] Impression: 1. Patchy bilateral basilar pulmonary opacities unchanged. 2. Dilated colon with large amount of fecal material which could represent ileu s or bowel obstruction.
--- NOTE | 2021-02-07 10:09 | CTR_ITS ---
PROCEDURE INFORMATION: Exam: CT Abdomen And Pelvis Without Contrast Exam date and time: 02/07/2021 10:09 AM Age: 65 years old Clinical indication: Nausea and vomiting; Prior surgery; Surgery type: Appy, ex lap; Additional info: Possible sbo, n/v TECHNIQUE: Imaging protocol: Computed tomography of the abdomen and pelvis without contrast. Radiation optimization: All CT scans at this facility use at least one of these dose optimization techniques: automated exposure control; mA and/or kV adjustment per patient size (includes targeted exams where dose is matched to clinical indication); or iterative reconstruction. COMPARISON: CR XR acute abdomen series [id number] 02/07/2021 8:54 AM RADIATION DOSE METRICS: Total DLP (mGy-cm): 1786.72 FINDINGS: Lungs: There is subsegmental atelectasis in the lower lobes. Pleural spaces: Minimal bilateral pleural effusions. Liver: There is a 2.8 cm cyst in the inferior aspect of the right lobe of the liver. Gallbladder and bile ducts: Normal. No calcified stones. No ductal dilation. Pancreas: Normal. No ductal dilation. Spleen: Normal. No splenomegaly. Adrenal glands: Normal. No mass. Kidneys and ureters: Normal. No hydronephrosis. Stomach and bowel: There is a right inguinal hernia which contains portion of the sigmoid colon. There is no evidence of bowel obstruction or dilatation. Appendix: No evidence of appendicitis. Intraperitoneal space: Unremarkable. No free air. No significant fluid collection. Vasculature: There is atherosclerotic calcification of the aorta and iliac arteries but there is no aneurysm. Lymph nodes: Unremarkable. No enlarged lymph nodes. Urinary bladder: The urinary bladder is collapsed around a Tenorio catheter. Reproductive: Unremarkable as visualized. Bones/joints: Chronic degenerative changes are present in the spine with joint space narrowing sclerosis and osteophytes. No acute bony abnormality. Soft tissues: There is a stable 6 cm uncomplicated fat containing umbilical hernia. CT/CT abdomen pelvis wo con [id number] IMPRESSION: 1. There is a right inguinal hernia containing a nondilated loop of sigmoid colon. 2. No evidence of bowel obstruction or dilatation. 3. Bibasilar atelectasis with minimal pleural effusions. 4. No acute abnormalities are seen in the abdomen and pelvis. Radiation Dose CTDIVOL = (mGy): DLP = 1786.72 (mGy-cm)
[2021-02-07] MEDS: metoclopramide 5 mg/mL SDV 2 mL 10 MG IVP (10:18)
[2021-02-07] MEDS: nicotine 21 mg Patch 1 PATCH TRANSDERMA (10:19)
[2021-02-07 10:35] LABS: Basophils % 0.3 %; Eosinophils % 0.1 %; Hematocrit 48.9 % (42.0-52.0); Hemoglobin 15.5 g/dL (11.7-16.6); Lymphocytes # 0.9 10^3/uL (0.8-4.8); Lymphocytes % 8.1 %; Mean Corpuscular HGB Conc 31.7 g/dL (30.0-36.0); Mean Corpuscular Hemoglobin 33.4 pg (28.0-34.0); Mean Corpuscular Volume 105.4 fl (80-94); Mean Platelet Volume 9.5 fL (7.4-10.4); Monocytes # 0.9 10^3/uL (0.2-0.9); Monocytes % 7.9 %; Neutrophils # 8.89 10^3/uL (1.8-7.7); Neutrophils % 83.1 %; Nucleated Red Blood Cells % 0 %; Platelet Count 219 10^3/cmm (130-400); Red Blood Count 4.64 10^6/uL (4.1-5.3); Red Cell Distribution Width 14.1 % (12.1-15.1); White Blood Count 10.7 10^3/uL (4.0-10.0)
[2021-02-07 10:58] LABS: Alanine Aminotransferase 8 U/L (0-41); Albumin Level 3.2 g/dL (3.5-5.2); Alkaline Phosphatase 75 IU/L (40-130); Anion Gap 11.3 (5-19); Aspartate Amino Transferase 9 U/L (0-40); Blood Urea Nitrogen 14 mg/dL (8-23); Calcium 8.9 mg/dL (8.5-10.5); Carbon Dioxide 37 mmol/L (22-29); Chloride 97 mmol/L (98-107); Globulin 3.4 g/dL (1.3-4.6); Glomerular Filtration Rate 135.2 mL/min (90-130); Glucose 116 mg/dL (65-115); Osmolality Calculated 295 mOsm/kg (285-295); Potassium 3.3 mmol/L (3.5-5.1); Sodium 142 mmol/L (136-145); Total Bilirubin 0.5 mg/dL (0.15-1.2); Total Protein 6.6 g/dL (6.6-8.7)
[2021-02-07] MEDS: piperacillin-tazobactam 3.375 GM in sodium chloride 0.9% (plus) 50 ML IV ×2 (12:55→19:55)
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
[2021-02-07] MEDS: magnesium citrate Btl 296 mL PO (14:57)
--- NOTE | 2021-02-07 15:32 | P.PN_ITS ---
Subjective Subjective: Interval history: No acute events overnight. Patient has remained hemodynamically stable and afebrile. Today morning having few episodes of vomiting. As per the nurse forceful. Patient complaining of mild abdominal pain. Stated has not had a bowel movement for over 7 days. Patient awake alert oriented. Vitals/I&O/Wt Last Vital Signs Temp 97.9 F 02/07/21 11:17 Pulse 100 02/07/21 14:32 Resp 20 H 02/07/21 14:27 BP 147/87 02/07/21 11:17 Pulse Ox 91 02/07/21 14:27 02/07/21 02/07/21 02/07/21 06:59 14:59 22:59 Intake Total 900 / 2850 600 / 600 Output Total 2950 / 7050 Balance -2050 / -4200 600 / 600 Weight last 48 hrs Weight 161.479 kg Weight 161.479 kg Weight 160.118 kg Physical Exam Narrative: EXAM NARRATIVE: General: No acute distress, AO x3, l morbidly obese HEENT: PERRLA, pupils bilaterally equal and reactive Chest: Bilateral bronchial breath sounds, bilateral decreased air entry all over the lung mcguire, diffuse rhonchi present all over the lung mcguire, fine crackles present bilateral lower zone CVS: S1-S2 regular, no murmurs, no tachycardia, no gallops, no rubs Abdomen: Soft, nontender, no organomegaly, bowel sounds present Neuro: No focal deficits, no facial deformity, AO x3, power 5/5 in all limbs Extremities: Bilateral lower limb swelling present with venous stasis dermatitis skin changes present up to mid level thigh, foul-smelling discharge on the right posterior. Urinary Catheter Management^: Tenorio: Cath Placed During This Visit: yes Reason for Continuing Indwelling Catheter: Other Urinary Catheter Date of Insertion: 02/05/21 Urinary Catheter Time of Insertion: 23:30 Data : 02/07/21 10:28 02/07/21 10:28 Micro: Microbiology 02/04/21 19:29 Wound Culture - Preliminary Leg - Drainage Morganella morganii Klebsiella oxytoca Staphylococcus aureus 02/06/21 00:53 Blood Culture - Preliminary Blood NEGATIVE TO DATE 02/06/21 00:47 Blood Culture - Preliminary Blood NEGATIVE TO DATE A&P Assessment and plan (1) Acute on chronic respiratory failure with hypoxia and hypercapnia: Status: Acute (2) Sleep apnea: Status: Acute (3) COPD (chronic obstructive pulmonary disease): Status: Acute (4) Cellulitis: Bilateral chronic longstanding lymphedema with pain erythema and warmth, left worse than right concerning for cellulitis. Weeping ulceration noted over the left calf. Reportedly with failure of outpatient oral antibiotics which were prescribed 2 weeks ago at [facility]. Started empirically on Zosyn and vancomycin, continue same and monitor for improvement. Obtain records from [facility], patient reportedly underwent venous and arterial studies and an echocardiogram which have been requested. Status: Acute (5) Hypertension: Status: Acute (6) Lymphedema: Longstanding, OT evaluation for lymphedema wraps. Patient has also been referred as an outpatient to wound care clinic however has not made the appointment just yet. Status: Acute (7) Moderate aortic stenosis: Status: Acute (8) Chronic right-sided CHF (congestive heart failure): Status: Acute (9) Hernia, inguinal, right: Status: Acute Additional A&P Information Acute on chronic hypoxic and hypercapnic respiratory failure: Most likely combination of COPD and sleep apnea exacerbation secondary to excessive pain medication and Lyrica. Resolved now. Oxygen supplementation keeping saturation over 88%. Morphine 1 mg every 4 hour as needed. Will have to continue morphine as patient is on standing morphine as at home to prevent from withdrawal. DuoNebs every 6 hour, budesonide twice daily. Continue with Solu-Medrol to 40 mg IV daily for 1 more day we will transition to oral tomorrow. COVID-19 PCR negative, remove isolation precautions. Less likely pneumonia. Right-sided heart failure: Echocardiogram done showed a normal LVEF and systolic function of 65%, moderately dilated RV and moderate decreased RV systolic function, moderate aortic valve stenosis. Continue with IV Lasix 60 mg twice daily, strict input output charting, daily weights. Lower limb swelling: Most likely secondary lymphedema. Less likely cellulitis. Does have an open wound present at the posterior region on the left leg most likely an infected open wound. MRSA culture negative, blood cultures so far negative. Culture results appreciated. Consistent with Klebsiella, Morganella, Staphylococcus. Continue with Zosyn for now. Wound care, lymphedema wraps. Lower limb Doppler results appreciated, arterial duplex pending. Hypertension: Goal blood pressure less than 140/90 mmHg. We will start antihypertensives accordingly. Abdominal pain/nausea/vomiting: CT abdomen results appreciated. Zofran, Reglan as needed. Protonix. Appreciate surgical recommendations. Aggressive bowel regimen, Fleet enema. Full code. Lovenox for DVT prophylaxis Protonix for PUD prophylaxis. NPO. Plan for day: Abdominal series, CT abdomen pelvis to rule out bowel obstruction, surgical consultation. Aggressive bowel regimen Fleet enema. Continue with IV Lasix and strict input output charting. SPENCER Tenorio. Attestations Medical Necessity Statement*: Requires further hospitalization for management of bilateral lower limb swelling, right-sided heart failure, acute on chronic hy poxic 5 Respiratory failure, abdominal pain nausea and vomiting. Time Spent in Patient Care: Greater than 35 minutes (>than 50% of time spent in counselling and/or direct pt care on unit) . Coding Level of Care Code Acute Artist Black[employer] for [facility] Fwd Diagnoses Acute on chronic respiratory failure with hypoxia and hypercapnia J96.21; J96.22 Sleep apnea G47.30 COPD (chronic obstructive pulmonary disease) J44.9 Cellulitis L03.90 Hypertension I10 Lymphedema I89.0 Moderate aortic stenosis I35.0 Chronic right-sided CHF (congestive heart failure) I50.812 Hernia, inguinal, right K40.90
[2021-02-08] VITALS (12 sets, daily range): BP systolic 137–152; BP diastolic 80–89; PULSE 66–767; RESP 16–18; TEMP 36.8–37; O2SAT 89–94; BMI 49.6
--- NOTE | 2021-02-08 00:03 | PC.NURSE ---
PRN pain medication morphine one mg administered at this time/ patient rates pain at a 9/10 back/ generalized pain.
[2021-02-08] MEDS: enoxaparin 40 mg/0.4 mL Syringe SUBCUT (01:22)
[2021-02-08] MEDS: ipratropium-albuterol 3 mL Neb INHALATION ×3 (03:02→14:35)
[2021-02-08] MEDS: piperacillin-tazobactam 3.375 GM in sodium chloride 0.9% (plus) 50 ML IV (04:32)
[2021-02-08 06:28] LABS: Basophils % 0.5 %; Eosinophils % 0.2 %; Hematocrit 48.5 % (42.0-52.0); Hemoglobin 15.3 g/dL (11.7-16.6); Lymphocytes # 1.3 10^3/uL (0.8-4.8); Mean Corpuscular HGB Conc 31.5 g/dL (30.0-36.0); Mean Corpuscular Hemoglobin 32.3 pg (28.0-34.0); Mean Corpuscular Volume 102.5 fl (80-94); Monocytes # 0.9 10^3/uL (0.2-0.9); Monocytes % 10.3 %; Neutrophils # 6.45 10^3/uL (1.8-7.7); Neutrophils % 73.8 %; Nucleated Red Blood Cells % 0 %; Platelet Count 234 10^3/cmm (130-400); Red Blood Count 4.73 10^6/uL (4.1-5.3); Red Cell Distribution Width 13.8 % (12.1-15.1); White Blood Count 8.7 10^3/uL (4.0-10.0)
[2021-02-08 06:58] LABS: Alanine Aminotransferase 8 U/L (0-41); Albumin Level 3.4 g/dL (3.5-5.2); Alkaline Phosphatase 74 IU/L (40-130); Anion Gap 10.9 (5-19); Aspartate Amino Transferase 10 U/L (0-40); Blood Urea Nitrogen 14 mg/dL (8-23); Calcium 8.8 mg/dL (8.5-10.5); Carbon Dioxide 39 mmol/L (22-29); Chloride 94 mmol/L (98-107); Globulin 3.3 g/dL (1.3-4.6); Glomerular Filtration Rate 135.2 mL/min (90-130); Glucose 89 mg/dL (65-115); Osmolality Calculated 292 mOsm/kg (285-295); Sodium 141 mmol/L (136-145); Total Bilirubin 0.6 mg/dL (0.15-1.2); Total Protein 6.7 g/dL (6.6-8.7)
[2021-02-08 07:46] LABS: Potassium 2.9 mmol/L (3.5-5.1)
[2021-02-08] MEDS: pantoprazole 40 mg SDV IVP (08:28)
[2021-02-08] MEDS: nicotine 21 mg Patch 1 PATCH TRANSDERMA (08:29)
[2021-02-08] MEDS: folic acid 1 mg Tablet PO (08:29)
[2021-02-08] MEDS: morphine 4 mg/mL SDV 1 mL 1 MG IVP (08:37)
[2021-02-08] MEDS: budesonide 0.5 mg/2 mL Neb INHALATION (09:15)
--- NOTE | 2021-02-08 09:15 | PM.PN ---
Subjective Subjective: Interval history: The patient has had multiple bowel movements since I saw him yesterday. He tells me he is not having any further symptoms in the right inguinal region. He would like to eat some solid food. Vitals/I&O/Wt Last Vital Signs Temp 98.6 F 02/08/21 08:00 Pulse 66 02/08/21 08:00 Resp 18 02/08/21 08:00 BP 137/89 02/08/21 08:00 Pulse Ox 91 02/08/21 08:00 02/07/21 02/08/21 02/08/21 22:59 06:59 14:59 Intake Total 350 / 1350 400 / 1350 Output Total 1900 / 2900 1000 / 2900 Balance -1550 / -1550 -600 / -1550 Weight last 48 hrs Weight 356 lb Weight 356 lb Weight 356 lb Physical Exam Narrative: EXAM NARRATIVE: No significant change. I cannot appreciate any more contents in the right inguinal region. Urinary Catheter Management^: Tenorio: Cath Placed During This Visit: yes, but has since been removed by the nurse Reason for Continuing Indwelling Catheter: Decision to DC Catheter Urinary Catheter Date of Insertion: 02/05/21 Urinary Catheter Time of Insertion: 23:30 Date Urinary Catheter Removed: 02/07/21 Time Urinary Catheter Discontinued: 18:46 Data : 02/08/21 05:29 02/08/21 05:29 Micro: Microbiology 02/04/21 19:29 Wound Culture - Preliminary Leg - Drainage Morganella morganii Klebsiella oxytoca Staphylococcus aureus A&P Assessment and plan (1) Hernia, inguinal, right: CT reviewed. The patient clearly had a nondistended loop of sigmoid colon within his hernia/inguinal canal at the time of the scan. Again, it doesn't appear to be causing obstruction but I'm sure it's not helping with bowel movements/constipation if the bowel is within the hernia any significant amount of time. An attempt was made to reduce any contents in the inguinal canal yesterday, but given his size, it is difficult to know if there is anything still there. He has had multiple bowel movements since getting some magnesium citrate yesterday. I told him that unless it becomes an urgent issue, he certainly is not a very good surgical candidate at this time for a hernia repair and he understands that. I will continue following at least peripherally with you. Status: Acute Attestations Medical Necessity Statement*: See admitting service's notation. Coding Level of Care Code Acute [employer] for [facility] Fwd Diagnoses Hernia, inguinal, right K40.90
[2021-02-08] MEDS: potassium chloride ER 20 mEq Tablet 40 MEQ PO (12:35)
[2021-02-08] MEDS: FUROsemide 10 mg/mL SDV 10mL 60 MG IVP (12:35)
--- NOTE | 2021-02-08 12:52 | P.DS_ITS ---
Discharge Providers Date of Admission: 02/05/21 12:54 Date of Discharge: February 08, 2021 Attending Provider at Admission: Maryam Chin MD Attending Provider at Discharge: Steven Arnold MD Primary Care Provider: Emy Russ MD Diagnoses at Discharge Discharge Diagnosis (1) Hernia, inguinal, right: Status: Acute (2) Chronic right-sided CHF (congestive heart failure): Status: Acute (3) Moderate aortic stenosis: Status: Acute (4) Acute on chronic respiratory failure with hypoxia and hypercapnia: Status: Acute (5) Lymphedema: Status: Acute (6) COPD (chronic obstructive pulmonary disease): Status: Acute (7) Cellulitis: Status: Acute Reason for Visit Reason for Visit: sores on legs, sent by [facility] Hospital Course Hospital Course History as per HPI. Alondra Carolina is a 65 year old male with a past medical history sleep apnea not on CPAP for last 3 years since it broke, COPD on home oxygen 2 to 3 L/min, chronic active smoker, chronic lower extremity swelling, lymphedema, history of noncompliance as per recently admitted at [facility] for bilateral lower extremity cellulitis and source per his description. Discharged on amoxicillin per his history. Went to follow-up with his primary care provider at the [facility] today and there was concern for left lower extremity cellulitis and open wounds for which she was sent over to the emergency room. Here he is noted to have bilateral extensive changes of stasis dermatitis, chronic lymphedema, bilateral lower extremity warm and erythematous, left greater than right at this time. There is also noted to be superficial weeping ulcerations over the left calf which patient states is new. Patient went to the hospital for further management and evaluation of bilateral lymphedema, cellulitis. He was started on broad-spectrum antibiotics. Lower limb Dopplers and arterial studies were done which were negative for any peripheral vascular disease or DVT. His blood cultures during hospitalization remained negative. Superficial wound cultures were consistent with Morganella, Klebsiella and staph aureus, MRSA swab negative. He was started on IV diuretics for concern of congestive heart failure. During hospitalization patient dev eloped acute on chronic hypoxic and hypercapnic respiratory failure for which he was placed on CPAP and responded well to the treatment. Echocardiogram was done which showed normal left trickle ejection fraction of 65%, moderately dilated right ventricle moderately decreased right ventricular systolic function with moderate aortic stenosis. Patient was continued on IV diuresis and by the day of discharge he is around 6 L net negative. During hospitalization patient also developed vomiting for which CT abdomen was done which was concerning for constipation along with right inguinal hernia with dilated bowel loops. Surgery was consulted and he was treated conservatively with aggressive bowel regimen. Patient is back to his baseline is been discharged in hemodynamically stable condition. He has been discharged on losartan 25 mg daily for mildly elevated blood pressure, diuretic therapy. He is to take Augmentin and Keflex for next 5 days to finish an antibiotic course for cellulitis. He is advised to follow-up with primary care provider within next 1 week. He is also being set up for a sleep study as an outpatient for renewal of his CPAP. Care plan was discussed in detail with patient and patient's . Home health has been arranged for him prior to discharge. Home oxygen evaluation has been done prior to discharge. Physical Exam Narrative: EXAM NARRATIVE: General: No acute distress, AO x3 HEENT: PERRLA, pupils bilaterally equal and reactive Chest: Normal vesicular breath sounds, no added sounds, equal good air entry bilaterally CVS: S1-S2 regular, no murmurs, no tachycardia, no gallops, no rubs Abdomen: Soft, nontender, no organomegaly, bowel sounds present Neuro: No focal deficits, no facial deformity, AO x3, power 5/5 in all limbs Urinary Catheter Management^: Tenorio: Cath Placed During This Visit: yes, but has since been removed by the nurse Reason for Continuing Indwelling Catheter: Decision to DC Catheter Urinary Catheter Date of Insertion: 02/05/21 Urinary Catheter Time of Insertion: 23:30 Date Urinary Catheter Removed: 02/07/21 Time Urinary Catheter Discontinued: 18:46 Discharge Data Data Completed and Pending: Completed Studies During Hospitalization Category Date Time Status CT abdomen pelvis wo con 30349 Rout ine Cat Scan 02/07/21 10:[address] angio chest PE protcl 38656 Rout ine Cat Scan 02/05/21 14:31 Completed XR acute abdomen series 11076 Routi ne Exams 02/07/21 08:35 Completed XR chest 1V catalina ble [id number] Routine Exams 02/06/21 06:00 Completed XR tibia fibula L T 2V [id number] Urgent Exams 02/04/21 19:19 Completed XR tibia fibula R T 2V [id number] Urgent Exams 02/04/21 19:19 Completed CV ankle brachial index 26916 Routi ne Ultrasound 02/05/21 12:19 [place] [address] Routin e Ultrasound 02/05/21 12:19 Completed CV. echo wo/w con trast C8929 Routin e Ultrasound 02/05/21 12:19 Completed Pending at discharge Category Date Time Status Arterial Blood Ga s Full Routine Lab 02/06/21 19:44 Results Blood Culture Sta t Lab 02/04/21 19:40 Results Blood Culture Sta t Lab 02/05/21 23:41 Results Wound Culture Sta t Lab 02/04/21 19:29 Results Labs from last 24 hours 02/08/21 02/08/21 05:29 05:29 WBC 8.7 RBC 4.73 Hgb 15.3 Hct 48.5 MCV 102.5 H MCH 32.3 MCHC 31.5 RDW 13.8 Plt Count 234 MPV 10.0 Neut % (Auto) 73.8 Lymph % (Auto) 15.0 Ulster % (Auto) 10.3 Eos % (Auto) 0.2 Baso % (Auto) 0.5 Neut # (Auto) 6.45 Lymph # (Auto) 1.3 Ulster # (Auto) 0.9 Eos # (Auto) 0.0 Baso # (Auto) 0.0 Nucleated RBC % (a uto) 0 Nucleated RBCs # 0.0 Sodium 141 Potassium 2.9 L Chloride 94 L Carbon Dioxide 39 H Anion Gap 10.9 BUN 14 Creatinine 0.6 L GFR Calculation 135.2 H Glucose 89 Calculated Osmolal ity 292 Calcium 8.8 Total Bilirubin 0.6 AST 10 ALT 8 Alkaline Phosphata se 74 Total Protein 6.7 Albumin 3.4 L Globulin 3.3 Addt'l Data from Hospital Stay: Laboratory Results WBC 8.7 10^3/uL (4.0- 10.0) 02/08/21 05:29 RBC 4.73 10^6/uL (4.1 -5.3) 02/08/21 05:29 Hgb 15.3 g/dL (11.7-1 6.6) 02/08/21 05:29 Hct 48.5 % (42.0-52.0 ) 02/08/21 05:29 MCV 102.5 fl (80-94) H 02/08/21 05:29 MCH 32.3 pg (28.0-34. 0) 02/08/21 05:29 MCHC 31.5 g/dL (30.0-3 6.0) 02/08/21 05:29 RDW 13.8 % (12.1-15.1 ) 02/08/21 05:29 Plt Count 234 10^3/cmm (130 -400) 02/08/21 05:29 MPV 10.0 fL (7.4-10.4 ) 02/08/21 05:29 Neut % (Auto) 73.8 % 02/08/21 05:29 Lymph % (Auto) 15.0 % 02/08/21 05:29 Ulster % (Auto) 10.3 % 02/08/21 05:29 Eos % (Auto) 0.2 % 02/08/21 05:29 Baso % (Auto) 0.5 % 02/08/21 05:29 Neut # (Auto) 6.45 10^3/uL (1.8 -7.7) 02/08/21 05:29 Lymph # (Auto) 1.3 10^3/uL (0.8- 4.8) 02/08/21 05:29 Ulster # (Auto) 0.9 10^3/uL (0.2- 0.9) 02/08/21 05:29 Eos # (Auto) 0.0 10^3/uL (0.0- 0.8) 02/08/21 05:29 Baso # (Auto) 0.0 10^3/uL (0.0- 0.1) 02/08/21 05:29 Nucleated RBC % (a uto) 0 % 02/08/21 05:29 Nucleated RBCs # 0.0 /100WBC 02/08/21 05:29 ESR Cancelled 02/04/21 19:40 D-Dimer 3.57 ug/mIFEU (0- 0.59) H 02/05/21 12:48 Specimen Type Arterial 02/06/21 19:44 Sample Site Radial, left 02/06/21 07:44 ABG pH 7.45 (7.35-7.45) 02/06/21 19:44 ABG pCO2 57.0 mmHg (35-45) H 02/06/21 19:44 ABG pO2 59.5 mmHg (80.0-1 00.0) L 02/06/21 19:44 ABG HCO3 39.8 mmol/L (22-2 6) H 02/06/21 19:44 ABG O2 Saturation 92.0 02/06/21 19:44 ABG Base Excess 13.0 mmol/L (-2.0 -2.0) H 02/06/21 19:44 Fabian Test Pos 02/06/21 19:44 A-a O2 Gradient 2.8 mmHg (5-10) L 02/06/21 19:44 Hematocrit 47.1 % (42-52) 02/06/21 19:44 Hgb O2 Saturation 90.1 % (95-100) L 02/06/21 19:44 Carboxyhemoglobin 1.4 %THgb (0.4-20 .1) 02/06/21 19:44 Methemoglobin 0.7 % (0.4-1.5) 02/06/21 19:44 Total Hemoglobin 15.4 g/dL (14-18) 02/06/21 19:44 Sodium 142.0 mmol/L (131 -143) 02/06/21 19:44 Potassium 3.6 mmol/L (3.5-5 .0) 02/06/21 19:44 Glucose 156.0 mg/dL (70-1 15) H 02/06/21 19:44 Ionized Calcium 1.2 mmol/L (1.1-1 .4) 02/06/21 19:44 O2 Delivery Device Bipap 02/06/21 07:44 O2 Liters/Min 5.0 % 02/06/21 00:00 FiO2 80.0 % 02/06/21 07:44 Mounter Clarinets ID Anonymous 02/06/21 19:44 Sodium 141 mmol/L (136-1 45) 02/08/21 05:29 Potassium 2.9 mmol/L (3.5-5 .1) L 02/08/21 05:29 Chloride 94 mmol/L (98-107 ) L 02/08/21 05:29 Carbon Dioxide 39 mmol/L (22-29) H 02/08/21 05:29 Anion Gap 10.9 (5-19) 02/08/21 05:29 BUN 14 mg/dL (8-23) 02/08/21 05:29 Creatinine 0.6 mg/dL (0.7-1. 2) L 02/08/21 05:29 GFR Calculation 135.2 mL/min (90- 130) H 02/08/21 05:29 Glucose 89 mg/dL (65-115) 02/08/21 05:29 Estimat Average Gl ucose 111 02/06/21 00:47 Hemoglobin A1c 5.5 % (4.0-6.0) 02/06/21 00:47 Calculated Osmolal ity 292 mOsm/kg (285- 295) 02/08/21 05:29 Lactate 1.2 mmol/L (0.5-2 .2) 02/04/21 19:40 Calcium 8.8 mg/dL (8.5-10 .5) 02/08/21 05:29 Magnesium 1.9 mg/dL (1.7-2. 3) 02/06/21 00:47 Iron 77 ug/dL (59-158) 02/05/21 03:40 TIBC 389 mcg/dl 02/05/21 03:40 % Saturation 19.7 % (20-50) L 02/05/21 03:40 Unsat Iron Binding 312 ug/dL (112-34 7) 02/05/21 03:40 Total Bilirubin 0.6 mg/dL (0.15-1 .2) 02/08/21 05:29 AST 10 U/L (0-40) 02/08/21 05:29 ALT 8 U/L (0-41) 02/08/21 05:29 Alkaline Phosphata se 74 IU/L (40-130) 02/08/21 05:29 C-Reactive Protein 36.4 mg/L (0.0-4. 9) H 02/04/21 19:40 NT-Pro-B Natriuret Pep 294 pg/mL (0-125) H 02/05/21 03:40 Total Protein 6.7 g/dL (6.6-8.7 ) 02/08/21 05:29 Albumin 3.4 g/dL (3.5-5.2 ) L 02/08/21 05:29 Globulin 3.3 g/dL (1.3-4.6 ) 02/08/21 05:29 Triglycerides 92 mg/dL (0-150) 02/06/21 00:47 Cholesterol 126 mg/dL (0-200) 02/06/21 00:47 LDL Cholesterol, C alc 72 mg/dL (50-129) 02/06/21 00:47 Total VLDL Cholest katiuska 18 mg/dL (0-30) 02/06/21 00:47 HDL Cholesterol 36 mg/dL (60-100) L 02/06/21 00:47 Cholesterol/HDL Ra kelli 3.50 mg/dL (1.0-5 .00) 02/06/21 00:47 Vitamin B12 405 pg/mL (232-12 45) 02/05/21 03:40 Folate 4.1 ng/mL (4.5-32 .2) L 02/05/21 03:40 Procalcitonin 0.04 ng/mL (0-0.5 ) 02/05/21 03:40 TSH 1.33 uIU/mL (0.27 -4.20) 02/05/21 03:40 Vancomycin Trough 28.1 ug/mL (10-15 ) H* 02/06/21 15:35 Nasal/Oral COVID-1 9 PCR Not detected 02/06/21 05:50 SARS-CoV-2 Ag (Rap id) Negative (Negati ve) 02/04/21 19:29 Impressions Tibia/Fibula X-Ray 02/04/21 19:19 IMPRESSION: 1. No acute osseous abnormality. 2. Soft tissue edema in the lower leg. Radiation Dose CTDIVOL = (mGy): DLP = (mGy-cm) Chest CTA 02/05/21 14:31 IMPRESSION: Evaluation somewhat limited due to body habitus and beam hardening artifact. 1. Proximal main pulmonary arteries are normal. No evidence of pulmonary embolus considering limitations. Distal vessels are poorly opacified. 2. Moderate chronic emphysematous changes. Bibasilar atelectasis. No focal pneumonia or pleural fluid. 3. Normal caliber thoracic aorta. Chest X-Ray 02/06/21 06:00 Impression: 1. Probable bibasilar atelectasis. 2. Atherosclerosis. 3. Chronic nodular lung disease. Chest/Abdomen X-ray 02/07/21 08:35 Impression: 1. Patchy bilateral basilar pulmonary opacities unchanged. 2. Dilated colon with large amount of fecal material which could represent ileus or bowel obstruction. Abdomen/Pelvis CT 02/07/21 10:09 IMPRESSION: 1. There is a right inguinal hernia containing a nondilated loop of sigmoid colon. 2. No evidence of bowel obstruction or dilatation. 3. Bibasilar atelectasis with minimal pleural effusions. 4. No acute abnormalities are seen in the abdomen and pelvis. Radiation Dose CTDIVOL = (mGy): DLP = 1786.72 (mGy-cm) Echocardiogram: CONCLUSIONS 1. This is a technically difficult study. Ultrasound enhancing agent was used per protocol. 2. Normal left ventricular cavity size and systolic function. Left ventricular ejection fraction is estimated at 65 %. No regional wall motion abnormalities. Flattened septum in systole consistent with right ventricle pressure overload. 3. Moderately dilated right ventricle with moderately decreased right ventricle systolic function. 4. Moderate aortic valve stenosis, peak velocity 2.8 m/s, peak gradient 31 mmHg, mean gradient 14.7 mmHg, PEDRO 1.2 cm squared. 5. No prior similar studies to compare. Samantha Means MD (Electronically Signed) Final Date: 05 February 2021 18:04 Venous duplex bilateral lower limbs CONCLUSIONS No evidence of right lower extremity DVT. No evidence of left lower extremity DVT. Jani Bar MD (Electronically Signed) Final Date: 05 February 2021 17:14 Ankle-brachial index bilateral lower limb: FINDINGS Resting JUNIOR 1.0 on both sides CONCLUSIONS Normal resting ABIs bilaterally, suggesting no significant arterial obstruction Dr Minna Welch MD [facility] (Electronically Signed) Final Date: 06 February 2021 20:22 S Vitals: Last Vital Signs Temp 98.2 F 02/08/21 12:00 Pulse 68 02/08/21 12:00 Resp 18 02/08/21 12:00 BP 139/80 02/08/21 12:00 Pulse Ox 92 02/08/21 12:00 Discharge Plan Discharge Patient Disposition: Home Health Service Condition: Stable Prescriptions: New folic acid 1 mg Tablet 1 mg PO BID 30 Days Qty: 60 RF: 0 Lasix 40 mg tablet 80 mg PO BID 30 Days Qty: 120 RF: 0 Keflex 750 mg capsule 750 mg PO Q12H 7 Days Qty: 14 RF: 0 Augmentin 500-125 mg tablet 1 tab PO BID Qty: 10 RF: 0 losartan 25 mg tablet 25 mg PO DAILY Qty: 30 RF: 0 potassium chloride 20 mEq tablet extended release 20 meq PO DAILY Qty: 30 RF: 0 Senna Plus 8.6-50 mg capsule 1 tab-cap PO BID PRN (Reason: constipation) Qty: 14 RF: 0 Continued morphine 15 mg tablet 15 - 30 mg PO .EVERY 4-6 HOURS MDD 6 tabs PRN (Reason: Pain) RF: 0 aspirin 325 mg tablet 325 mg PO DAILY RF: 0 Advair Diskus 250-50 mcg/dose Blister With Device 1 inh INHALATION BID RF: 0 ipratropium-albuterol 0.5 mg-3 mg(2.5 mg base)/3 mL solution for nebulization 3 ml INHALATION Q6H PRN (Reason: Shortness Of Breath) RF: 0 Vitamin D2 1,250 mcg (50,000 unit) Capsule 50,000 unit PO Q7D RF: 0 ProAir HFA 90 mcg/actuation Hfa Aerosol Inhaler 2 puff INHALATION QID PRN (Reason: Shortness Of Breath) RF: 0 Changed morphine 30 mg Tablet Extended Release 30 mg PO Q12H Qty: 0 RF: 0 Discontinued amoxicillin 500 mg capsule 500 mg PO BID RF: 0 furosemide 20 mg tablet 80 mg PO BID RF: 0 Discharge Orders: Discharge Order (Routine); Ordered 02/08/21 Ordered By: Steven Arnold Other Ambulatory Orders: Sleep Study W Sleep Stage (Routine) Timeframe: 1 Week Facility: [facility] - Location: [facility] Ordered By: Steven Arnold Referrals: Emy Russ MD [Primary Care Provider] - 1 week (Please call on Wednesday to schedule an appointment to be seen in one week.) Discharge Diet: Cardiac Discharge Activity: Resume usual activity Patient Instructions: Cephalexin (By mouth) (Bio-Cef, Keflex), Furosemide (By mouth) (Lasix), Potassium Chloride (By mouth) (K-Dur, K-Rita, K-Tab, Daniel Mur), Laxative, Stimulant (By mouth) (Dulcolax, EX-Lax, Fleet Bisacodyl,..., Amoxicillin/Clavulanate Potassium (By mouth) (Augmentin, Augmentin..., Folic Acid (By mouth) (FA-8, [place], Folacin-800, Methylfolate), Losartan (By mouth) (Cozaar), Sleep Apnea (GEN), CHF Stoplight, COPD Stoplight, Opioid Safety Activity Restrictions/Additional Instructions: Please continue take your diuretics and antihypertensives are discussed in det ail. Please follow-up on the set appointment for sleep study. Please follow-up with your primary care provider within next 1 week. Please be compliant with your lymphedema wraps. Discharge Attestations Time Spent in Discharge Care*: greater than 30 min Specific Discharge Activities: educating patient, educating and/or supporting family/caregiver, discussing with embedded case manager/social workers/dc planners, documenting/other paperwork and evaluating patient/reviewing data Status at Discharge: Cognitive status at discharge: cognitively intact , Behavioral status at discharge: cooperative , Functional status at discharge: uses cane/walker Overall status at discharge: patient is back to baseline Quality Metrics Clinical Quality Measures During this hospital stay, did patient experience: None Coding Level of Care Code Acute Chg FW DC note Diagnoses Hernia, inguinal, right K40.90 Chronic right-sided CHF (congestive heart failure) I50.812 Moderate aortic stenosis I35.0 Acute on chronic respiratory failure with hypoxia and hypercapnia J96.21; J96.22 Lymphedema I89.0 COPD (chronic obstructive pulmonary disease) J44.9 Cellulitis L03.90
--- NOTE | 2021-02-08 14:37 | PC.SOCIAL ---
Pg 2 IMM. Explained to pt Pg 2 IMM. No questions voiced. Provided pt a copy. Initialed, dated, & timed a copy & placed in chart.
[2021-02-14 18:37] LABS: Blood Gas Sample Site Not specified
== END 2021-02-08 15:45 | disposition home health service (06) | DRG 602 ==
LOC: ER 02-05 08:00 → ER IP 02-05 13:40 → MEDSURG 02-05 15:30
PROVIDERS: Admitting Provider Student in an Organized Health Care Education/Training Program; Emergency Provider Emergency Medicine; PCP Family Medicine; Visit Provider Student in an Organized Health Care Education/Training Program
DX: L03.116 Cellulitis of left lower limb (principal); J96.21 Acute and chronic respiratory failure with hypoxia; J96.22 Acute and chronic respiratory failure with hypercapnia; L97.221 Non-pressure chronic ulcer of left calf limited to breakdown of skin; Z68.42 Body mass index [BMI] 45.0-49.9, adult; J44.1 Chronic obstructive pulmonary disease with (acute) exacerbation; L03.115 Cellulitis of right lower limb; G47.33 Obstructive sleep apnea (adult) (pediatric); I89.0 Lymphedema, not elsewhere classified; I87.2 Venous insufficiency (chronic) (peripheral); I11.0 Hypertensive heart disease with heart failure; I50.812 Chronic right heart failure; B96.1 Klebsiella pneumoniae [K. pneumoniae] as the cause of diseases classified elsewhere; B95.61 Methicillin susceptible Staphylococcus aureus infection as the cause of diseases classified elsewhere; B96.89 Other specified bacterial agents as the cause of diseases classified elsewhere; I35.0 Nonrheumatic aortic (valve) stenosis; K40.90 Unilateral inguinal hernia, without obstruction or gangrene, not specified as recurrent; K59.03 Drug induced constipation; T40.605A Adverse effect of unspecified narcotics, initial encounter; G89.29 Other chronic pain; E66.01 Morbid (severe) obesity due to excess calories; F17.200 Nicotine dependence, unspecified, uncomplicated; R11.2 Nausea with vomiting, unspecified; Z99.81 Dependence on supplemental oxygen; Z79.82 Long term (current) use of aspirin; Z91.19 Patient's noncompliance with other medical treatment and regimen; Z79.891 Long term (current) use of opiate analgesic
CPT/HCPCS: 36415; 36600; 51702; 71045; 71275; 73590; 74022; 74176; 80048; 80051; 80053; 80061; 80202; 82330; 82607; 82746; 82803; 82805; 83036; 83540; 83550; 83605; 83735; 83880; 84145; 84443; 85025; 85378; 86140; 87040; 87070; 87077; 87186; 87426; 87635; 87641; 93922; 93970; 94640; 94660; 96365; 96366; 96367; 96372; 97116; 97140; 97162; 99285; C8929; C9113; J0743; J1170; J1650; J1940; J2270; J2310; J2405; J2543; J2765; J2920; J3370; J3420; J7040; J7050; J7626; Q9956; Q9967

== ENCOUNTER 2021-02-17 09:56 | Outpatient (CLI) | payer OTHER, SELFPAY | END 2021-02-17 09:57 | disposition home or self-care (01) | LOC: WOUND 10:05 | PROVIDERS: PCP Family Medicine; Visit Provider Emergency Medicine | DX: T20.20XA Burn of second degree of head, face, and neck, unspecified site, initial encounter (principal); T22.232A Burn of second degree of left upper arm, initial encounter; T22.231A Burn of second degree of right upper arm, initial encounter; X08.8XXA Exposure to other specified smoke, fire and flames, initial encounter; F17.210 Nicotine dependence, cigarettes, uncomplicated; J44.9 Chronic obstructive pulmonary disease, unspecified | CPT/HCPCS: 11042; 11045; G0463 ==

== ENCOUNTER 2021-02-24 09:32 | Outpatient (CLI) | payer OTHER, SELFPAY | END 2021-02-24 09:33 | disposition home or self-care (01) | LOC: WOUND 09:32 | PROVIDERS: PCP Family Medicine; Visit Provider Nurse Practitioner Family | DX: T22.231A Burn of second degree of right upper arm, initial encounter (principal); T22.232A Burn of second degree of left upper arm, initial encounter; X08.8XXA Exposure to other specified smoke, fire and flames, initial encounter; F17.210 Nicotine dependence, cigarettes, uncomplicated | CPT/HCPCS: G0463 ==

== ENCOUNTER 2021-03-10 20:00 | Outpatient (CLI) | payer OTHER, SELFPAY | END 2021-03-10 20:01 | disposition home or self-care (01) | LOC: SLEEP 03-11 07:28 | PROVIDERS: PCP Family Medicine; Visit Provider Family Medicine | DX: G47.33 Obstructive sleep apnea (adult) (pediatric) (principal) | CPT/HCPCS: 95810 ==

== ENCOUNTER 2021-04-08 11:57 | Outpatient (RCR) | payer OTHER, SELFPAY | END 2021-05-05 23:59 | disposition home or self-care (01) | LOC: SPT 11:57 | PROVIDERS: PCP Family Medicine; Referring Provider Family Medicine; Visit Provider Family Medicine | DX: I89.0 Lymphedema, not elsewhere classified (principal) | CPT/HCPCS: 29581; 97140; 97162 ==

== ENCOUNTER → 2021-09-09 08:24 | Outpatient (BNVA) | payer MEDICARE, SELFPAY | PROVIDERS: PCP Family Medicine; Visit Provider Emergency Medicine | DX: I96 Gangrene, not elsewhere classified (principal); L97.822 Non-pressure chronic ulcer of other part of left lower leg with fat layer exposed | CPT/HCPCS: 11042; 11045; 87070; 87176; 87205; 99213 ==

== ENCOUNTER → 2021-09-16 09:01 | Outpatient (BNVA) | payer MEDICARE, SELFPAY | PROVIDERS: PCP Family Medicine; Visit Provider Nurse Practitioner Family | DX: I87.2 Venous insufficiency (chronic) (peripheral) (principal); I96 Gangrene, not elsewhere classified; L97.812 Non-pressure chronic ulcer of other part of right lower leg with fat layer exposed | CPT/HCPCS: 99213 ==

== ENCOUNTER 2021-09-22 06:00 | Outpatient (RCR) | payer MEDICARE, SELFPAY | END 2021-10-05 23:59 | disposition home or self-care (01) | LOC: SPT 06:00 | PROVIDERS: PCP Family Medicine; Referring Provider Registered Nurse Neonatal Intensive Care; Visit Provider Registered Nurse Neonatal Intensive Care | DX: I89.0 Lymphedema, not elsewhere classified (principal) | CPT/HCPCS: 29581; 97140; 97161 ==

== ENCOUNTER → 2021-09-30 14:01 | Outpatient (BNVA) | payer MEDICARE, SELFPAY | PROVIDERS: PCP Family Medicine; Visit Provider Nurse Practitioner Family | DX: Z09 Encounter for follow-up examination after completed treatment for conditions other than malignant neoplasm (principal) | CPT/HCPCS: 99212 ==

== ENCOUNTER 2021-10-06 06:00 | Outpatient (RCR) | payer MEDICARE, SELFPAY | END 2021-11-05 23:59 | disposition home or self-care (01) | LOC: SPT 06:00 | PROVIDERS: PCP Family Medicine; Referring Provider Registered Nurse Neonatal Intensive Care; Visit Provider Registered Nurse Neonatal Intensive Care | DX: I87.2 Venous insufficiency (chronic) (peripheral) (principal); I89.0 Lymphedema, not elsewhere classified | CPT/HCPCS: 29581; 97140 ==

== ENCOUNTER → 2021-10-09 10:10 | Outpatient (BNVA) | payer MEDICARE, SELFPAY | PROVIDERS: PCP Family Medicine; Visit Provider Nurse Practitioner Family | DX: I89.0 Lymphedema, not elsewhere classified (principal); Z09 Encounter for follow-up examination after completed treatment for conditions other than malignant neoplasm | CPT/HCPCS: 99213 ==

== ENCOUNTER 2021-11-06 06:00 | Outpatient (RCR) | payer OTHER, SELFPAY | END 2021-12-05 23:59 | disposition home or self-care (01) | LOC: SPT 06:00 | PROVIDERS: PCP Family Medicine; Referring Provider Registered Nurse Neonatal Intensive Care; Visit Provider Registered Nurse Neonatal Intensive Care | DX: I87.2 Venous insufficiency (chronic) (peripheral) (principal) | CPT/HCPCS: 29581; 97140 ==

== ENCOUNTER 2021-11-13 10:30 | Outpatient (CLI) | payer MEDICARE, SELFPAY ==
--- NOTE | 2021-11-13 | USCV_ITS ---
Alondra Carolina Age: 66 Gender: M : 1955 Exam Date: 11/13/2021 10:51 Ordering Phys: Kiki Aquino DO Technologist: Gunnar Quinn Exam Location[place] [facility] [place]: LEG SWELLING HISTORY: was attemping a venous reflux study PROCEDURES: Exam started out as venous reflux study and was stopped when lt cfv dvt was discoverd Venous duplex imaging was performed in bilateral lower extremities. FINDINGS: Rt leg deep veins are thrombus free. Complete occlusion of the right great saphenous from knee to juntion of the rt cfv. Focal non occluding dvt in the lt cfv. The remainings veins on lt side appear normal. Technically limited exam due to pt body habitis. CONCLUSIONS Limited by body habitus. Acute left CFV occlusive DVT. There is evidence of acute right lower extremity superficial vein thrombosis. Patient sent to ED after exam. Dr. Radha Connor DO (Electronically Signed) Final Date: 13 November 2021 12:29 S
== END 2021-11-13 10:31 | disposition home or self-care (01) ==
PROVIDERS: PCP Family Medicine; Visit Provider Emergency Medicine
DX: I82.811 Embolism and thrombosis of superficial veins of right lower extremity (principal); I87.2 Venous insufficiency (chronic) (peripheral); M79.89 Other specified soft tissue disorders
CPT/HCPCS: 93970

== ENCOUNTER 2021-11-13 11:23 | Emergency (ER) | payer OTHER, MEDICARE, SELFPAY ==
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
[2021-11-13 11:32] VITALS: BP 104/68; PULSE 65; RESP 18; TEMP 37; O2SAT 92
[2021-11-13 11:50] VITALS: BMI 41.8
[2021-11-13 11:52] VITALS: BMI 41.8
[2021-11-13 12:11] VITALS: BP 111/58; RESP 18
[2021-11-13 12:15] LABS: Basophils # 0.1 10^3/uL (0.0-0.1); Eosinophils # 0.3 10^3/uL (0.0-0.8); Eosinophils % 3.7 %; Hematocrit 41.5 % (42.0-52.0); Hemoglobin 13.8 g/dL (11.7-16.6); Lymphocytes # 1.7 10^3/uL (0.8-4.8); Lymphocytes % 20.5 %; Mean Corpuscular HGB Conc 33.3 g/dL (30.0-36.0); Mean Corpuscular Hemoglobin 31.3 pg (28.0-34.0); Mean Corpuscular Volume 94.1 fl (80-94); Mean Platelet Volume 9.7 fL (7.4-10.4); Monocytes # 0.7 10^3/uL (0.2-0.9); Monocytes % 7.8 %; Neutrophils # 5.62 10^3/uL (1.8-7.7); Neutrophils % 66.8 %; Nucleated Red Blood Cells % 0 %; Platelet Count 206 10^3/cmm (130-400); Red Blood Count 4.41 10^6/uL (4.1-5.3); Red Cell Distribution Width 13.7 % (12.1-15.1); White Blood Count 8.4 10^3/uL (4.0-10.0)
[2021-11-13 12:18] VITALS: PULSE 60; RESP 18; O2SAT 91
--- NOTE | 2021-11-13 12:21 | PC.NURSE ---
pt has lymphedema wraps on bilateral lower extremities so no skin assessment done.
[2021-11-13 12:30] LABS: INR 0.98 (0.8-1.2)
[2021-11-13 12:31] LABS: Partial Thromboplastin Time 30.1 SECONDS (23.9-36.7)
[2021-11-13 12:36] LABS: Alanine Aminotransferase 8 U/L (0-41); Albumin Level 3.5 g/dL (3.5-5.2); Alkaline Phosphatase 96 U/L (40-130); Anion Gap 10.9 (5-19); Aspartate Amino Transferase 14 U/L (0-40); Blood Urea Nitrogen 14 mg/dL (8-23); Calcium 8.9 mg/dL (8.5-10.5); Carbon Dioxide 32 mmol/L (22-29); Chloride 94 mmol/L (98-107); Globulin 3.1 g/dL (1.3-4.6); Glomerular Filtration Rate 112.8 mL/min (90-130); Glucose 97 mg/dL (65-115); Osmolality Calculated 276 mOsm/kg (285-295); Potassium 3.9 mmol/L (3.5-5.1); Sodium 133 mmol/L (136-145); Total Bilirubin 0.6 mg/dL (0.15-1.2); Total Protein 6.6 g/dL (6.6-8.7)
[2021-11-13 13:10] VITALS: BP 118/70; PULSE 65; RESP 18; O2SAT 94
[2021-11-13 13:11] VITALS: BP 118/70; PULSE 65; RESP 18; O2SAT 94
== END 2021-11-13 13:13 | disposition home or self-care (01) ==
PROVIDERS: Emergency Provider Emergency Medicine; PCP Family Medicine
DX: I82.402 Acute embolism and thrombosis of unspecified deep veins of left lower extremity (principal); I82.812 Embolism and thrombosis of superficial veins of left lower extremity; Z79.82 Long term (current) use of aspirin; I11.0 Hypertensive heart disease with heart failure; I50.9 Heart failure, unspecified; J44.9 Chronic obstructive pulmonary disease, unspecified; F17.210 Nicotine dependence, cigarettes, uncomplicated
CPT/HCPCS: 80053; 85025; 85610; 85730; 99283

== ENCOUNTER → 2021-11-27 10:06 | Outpatient (BNVA) | payer OTHER, SELFPAY | PROVIDERS: PCP Family Medicine; Visit Provider Thoracic Surgery (Cardiothoracic Vascular Surgery) | DX: I96 Gangrene, not elsewhere classified (principal); L97.811 Non-pressure chronic ulcer of other part of right lower leg limited to breakdown of skin; I89.0 Lymphedema, not elsewhere classified | CPT/HCPCS: 97597; 97598; 99213 ==

== ENCOUNTER → 2021-12-04 10:39 | Outpatient (BNVA) | payer OTHER, SELFPAY | PROVIDERS: PCP Family Medicine; Visit Provider Nurse Practitioner Family | DX: I96 Gangrene, not elsewhere classified (principal); L97.811 Non-pressure chronic ulcer of other part of right lower leg limited to breakdown of skin; I89.0 Lymphedema, not elsewhere classified; L97.821 Non-pressure chronic ulcer of other part of left lower leg limited to breakdown of skin | CPT/HCPCS: 99213; 99214; A6253 ==

== ENCOUNTER 2021-12-06 06:00 | Outpatient (RCR) | payer OTHER, SELFPAY | END 2022-01-05 23:59 | disposition home or self-care (01) | LOC: SPT 06:00 | PROVIDERS: PCP Family Medicine; Visit Provider Registered Nurse Neonatal Intensive Care | DX: I87.2 Venous insufficiency (chronic) (peripheral) (principal) | CPT/HCPCS: 29581; 97140 ==

== ENCOUNTER → 2021-12-11 10:29 | Outpatient (BNVA) | payer OTHER, SELFPAY | PROVIDERS: PCP Family Medicine; Visit Provider Nurse Practitioner Family | DX: I96 Gangrene, not elsewhere classified (principal); I89.0 Lymphedema, not elsewhere classified; L97.812 Non-pressure chronic ulcer of other part of right lower leg with fat layer exposed; L97.822 Non-pressure chronic ulcer of other part of left lower leg with fat layer exposed | CPT/HCPCS: 11042; 11045 ==

== ENCOUNTER → 2021-12-18 10:20 | Outpatient (BNVA) | payer OTHER, SELFPAY | PROVIDERS: PCP Family Medicine; Visit Provider Nurse Practitioner Family | DX: I96 Gangrene, not elsewhere classified (principal); I89.0 Lymphedema, not elsewhere classified; L97.812 Non-pressure chronic ulcer of other part of right lower leg with fat layer exposed; L97.822 Non-pressure chronic ulcer of other part of left lower leg with fat layer exposed | CPT/HCPCS: 99213 ==

== ENCOUNTER → 2021-12-25 09:43 | Outpatient (BNVA) | payer OTHER, SELFPAY | PROVIDERS: PCP Family Medicine; Visit Provider Nurse Practitioner Family | DX: I96 Gangrene, not elsewhere classified (principal); I89.0 Lymphedema, not elsewhere classified; L97.812 Non-pressure chronic ulcer of other part of right lower leg with fat layer exposed; L97.822 Non-pressure chronic ulcer of other part of left lower leg with fat layer exposed | CPT/HCPCS: 11042; 11045 ==

== ENCOUNTER → 2022-01-01 09:28 | Outpatient (BNVA) | payer OTHER, SELFPAY | PROVIDERS: PCP Family Medicine; Visit Provider Nurse Practitioner Family | DX: I96 Gangrene, not elsewhere classified (principal); I89.0 Lymphedema, not elsewhere classified; L97.812 Non-pressure chronic ulcer of other part of right lower leg with fat layer exposed; L97.822 Non-pressure chronic ulcer of other part of left lower leg with fat layer exposed | CPT/HCPCS: 99213 ==

== ENCOUNTER 2022-01-06 06:00 | Outpatient (RCR) | payer OTHER, SELFPAY | END 2022-02-04 23:59 | disposition home or self-care (01) | LOC: SPT 06:00 | PROVIDERS: PCP Family Medicine; Visit Provider Registered Nurse Neonatal Intensive Care | DX: I89.0 Lymphedema, not elsewhere classified (principal) | CPT/HCPCS: 29581; 97140 ==

== ENCOUNTER → 2022-01-08 09:12 | Outpatient (BNVA) | payer OTHER, SELFPAY | PROVIDERS: PCP Family Medicine; Visit Provider Nurse Practitioner Family | DX: I96 Gangrene, not elsewhere classified (principal); I89.0 Lymphedema, not elsewhere classified; L97.812 Non-pressure chronic ulcer of other part of right lower leg with fat layer exposed; L97.822 Non-pressure chronic ulcer of other part of left lower leg with fat layer exposed | CPT/HCPCS: 11042 ==

== ENCOUNTER → 2022-01-15 09:47 | Outpatient (BNVA) | payer OTHER, SELFPAY | PROVIDERS: PCP Family Medicine; Visit Provider Nurse Practitioner Family | DX: I96 Gangrene, not elsewhere classified (principal); I89.0 Lymphedema, not elsewhere classified; L97.812 Non-pressure chronic ulcer of other part of right lower leg with fat layer exposed; L97.822 Non-pressure chronic ulcer of other part of left lower leg with fat layer exposed | CPT/HCPCS: 11042; 11045 ==

== ENCOUNTER → 2022-01-22 10:12 | Outpatient (BNVA) | payer OTHER, SELFPAY | PROVIDERS: PCP Family Medicine; Visit Provider Nurse Practitioner Family | DX: I96 Gangrene, not elsewhere classified (principal); I89.0 Lymphedema, not elsewhere classified; L97.812 Non-pressure chronic ulcer of other part of right lower leg with fat layer exposed; L97.822 Non-pressure chronic ulcer of other part of left lower leg with fat layer exposed | CPT/HCPCS: 11042; 11045 ==

== ENCOUNTER 2022-02-05 06:00 | Outpatient (RCR) | payer OTHER, MEDICARE, SELFPAY | END 2022-03-07 23:59 | disposition home or self-care (01) | LOC: SPT 06:00 | PROVIDERS: PCP Family Medicine; Visit Provider Registered Nurse Neonatal Intensive Care | DX: I87.2 Venous insufficiency (chronic) (peripheral) (principal); I89.0 Lymphedema, not elsewhere classified | CPT/HCPCS: 29581; 97140 ==

== ENCOUNTER → 2022-02-12 14:29 | Outpatient (BNVA) | payer OTHER, SELFPAY | PROVIDERS: PCP Family Medicine; Visit Provider Nurse Practitioner Family | DX: I89.0 Lymphedema, not elsewhere classified (principal); L97.812 Non-pressure chronic ulcer of other part of right lower leg with fat layer exposed; L97.822 Non-pressure chronic ulcer of other part of left lower leg with fat layer exposed | CPT/HCPCS: 11042; 11045 ==

== ENCOUNTER → 2022-02-23 13:16 | Outpatient (BNVA) | payer OTHER, SELFPAY | PROVIDERS: PCP Family Medicine; Visit Provider Thoracic Surgery (Cardiothoracic Vascular Surgery) | DX: I89.0 Lymphedema, not elsewhere classified (principal); L97.812 Non-pressure chronic ulcer of other part of right lower leg with fat layer exposed; L97.822 Non-pressure chronic ulcer of other part of left lower leg with fat layer exposed | CPT/HCPCS: 97597; 97598; A6252 ==

== ENCOUNTER 2022-02-27 15:24 | Observation (INO) | payer OTHER, SELFPAY ==
[2022-02-27 15:28] VITALS: BP 151/84; PULSE 74; RESP 22; TEMP 36.2; O2SAT 96; BMI 45.4
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
[2022-02-27] MEDS: morphine 4 mg/mL SDV 1 mL IVP ×2 (16:42→18:32)
[2022-02-27 16:58] LABS: Basophils # 0.1 10^3/uL (0.0-0.1); Basophils % 0.5 %; Eosinophils # 0.2 10^3/uL (0.0-0.8); Hematocrit 42.3 % (42.0-52.0); Hemoglobin 14.2 g/dL (11.7-16.6); Lymphocytes # 1.5 10^3/uL (0.8-4.8); Lymphocytes % 14.2 %; Mean Corpuscular HGB Conc 33.6 g/dL (30.0-36.0); Mean Corpuscular Hemoglobin 31.6 pg (28.0-34.0); Mean Platelet Volume 9.6 fL (7.4-10.4); Monocytes # 0.7 10^3/uL (0.2-0.9); Monocytes % 6.5 %; Neutrophils # 7.83 10^3/uL (1.8-7.7); Neutrophils % 76.5 %; Nucleated Red Blood Cells % 0 %; Platelet Count 282 10^3/cmm (130-400); Red Cell Distribution Width 14.2 % (12.1-15.1); White Blood Count 10.2 10^3/uL (4.0-10.0)
[2022-02-27 17:16] LABS: Alanine Aminotransferase 8 U/L (0-41); Albumin Level 3.5 g/dL (3.5-5.2); Alkaline Phosphatase 105 U/L (40-130); Anion Gap 13.4 (5-19); Aspartate Amino Transferase 13 U/L (0-40); Blood Urea Nitrogen 9 mg/dL (8-23); C Reactive Protein 14.6 mg/L (0.0-4.9); Calcium 9.5 mg/dL (8.5-10.5); Carbon Dioxide 30 mmol/L (22-29); Chloride 100 mmol/L (98-107); Creatinine Clr Calc Pharmacy 132.2218; Globulin 3.6 g/dL (1.3-4.6); Glomerular Filtration Rate 96.4 mL/min (90-130); Glucose 119 mg/dL (65-115); Osmolality Calculated 290 mOsm/kg (285-295); Potassium 3.4 mmol/L (3.5-5.1); Sodium 140 mmol/L (136-145); Total Bilirubin 0.6 mg/dL (0.15-1.2); Total Protein 7.1 g/dL (6.6-8.7)
[2022-02-27 17:17] LABS: Lactic Sepsis W/Reflex 1.9 mmol/L (0.5-2.2)
[2022-02-27 17:20] LABS: Erythrocyte Sedimentation Rate 13 mm/hr (0-10)
[2022-02-27 17:48] VITALS: BP 148/73; PULSE 89; O2SAT 95
[2022-02-27] MEDS: acetaminophen 500 mg Tablet 1000 MG PO (18:31)
[2022-02-27] MEDS: piperacillin-tazobactam 4.5 GM in sodium chloride 0.9% (plus) 50 ML IV (18:31)
[2022-02-27] MEDS: ketorolac 30 mg/mL INJ 15 MG IVP (18:32)
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
[2022-02-27 20:30] LABS: Procalcitonin 0.03 ng/mL (0-0.5)
[2022-02-27 21:22] VITALS: BP 122/75; PULSE 64; O2SAT 94
--- NOTE | 2022-02-27 22:16 | XRR_ITS ---
PROCEDURE INFORMATION: Exam: XR Left Foot Exam date and time: 02/27/2022 10:23 PM Age: 67 years old Clinical indication: Condition or disease; Other: Cellulitis TECHNIQUE: Imaging protocol: Radiologic exam of the Left foot. Views: 1 or 2 views. COMPARISON: CR XR tibia fibula LT 2V [id number] 02/04/2021 7:28 PM FINDINGS: Bones/joints: Hallux valgus noted. Calcaneal plantar enthesophyte noted. No acute fracture or dislocation identified. No radiographically evident osseous erosions identified. If concerned for osteomyelitis, recommend MRI. Soft tissues: No joint effusion is seen. XR/XR foot LT 2V [id number] IMPRESSION: No radiographically evident osseous erosions identified. If concerned for osteomyelitis, recommend MRI.
[2022-02-27 22:52] LABS: Estmated Average Glucose 103; Hemoglobin A1C 5.2 % (4.0-6.0)
[2022-02-27 23:07] VITALS: RESP 18
[2022-02-27] MEDS: morphine IR 15 mg Tablet PO (23:07)
[2022-02-28] VITALS (11 sets, daily range): BP systolic 91–116; BP diastolic 49–70; PULSE 69–84; RESP 16–20; TEMP 36.7–37; O2SAT 90–95
[2022-02-28] MEDS: piperacillin-tazobactam 3.375 GM in sodium chloride 0.9% (plus) 50 ML IV ×3 (01:58→17:30)
[2022-02-28 04:51] LABS: Basophils # 0.1 10^3/uL (0.0-0.1); Basophils % 0.6 %; Eosinophils # 0.5 10^3/uL (0.0-0.8); Eosinophils % 5.2 %; Hematocrit 37.4 % (42.0-52.0); Hemoglobin 12.3 g/dL (11.7-16.6); Lymphocytes # 0.9 10^3/uL (0.8-4.8); Lymphocytes % 9.1 %; Mean Corpuscular HGB Conc 32.9 g/dL (30.0-36.0); Mean Corpuscular Hemoglobin 31.5 pg (28.0-34.0); Mean Corpuscular Volume 95.7 fl (80-94); Mean Platelet Volume 9.6 fL (7.4-10.4); Monocytes # 0.6 10^3/uL (0.2-0.9); Monocytes % 6.5 %; Neutrophils # 7.38 10^3/uL (1.8-7.7); Neutrophils % 78.2 %; Nucleated Red Blood Cells % 0 %; Platelet Count 242 10^3/cmm (130-400); Red Blood Count 3.91 10^6/uL (4.1-5.3); Red Cell Distribution Width 14.6 % (12.1-15.1); White Blood Count 9.4 10^3/uL (4.0-10.0)
[2022-02-28] MEDS: vancomycin 1,250 MG/250 ML PIGGYBACK 250 MG IV ×3 (05:00→23:41)
[2022-02-28] MEDS: morphine IR 15 mg Tablet PO ×3 (05:13→18:51)
[2022-02-28 05:19] LABS: Anion Gap 9.2 (5-19); Blood Urea Nitrogen 11 mg/dL (8-23); C Reactive Protein 19.8 mg/L (0.0-4.9); Carbon Dioxide 31 mmol/L (22-29); Chloride 103 mmol/L (98-107); Glomerular Filtration Rate 84.2 mL/min (90-130); Glucose 98 mg/dL (65-115); Magnesium 1.9 mg/dL (1.7-2.3); Osmolality Calculated 289 mOsm/kg (285-295); Phosphorus 3.9 mg/dL (2.5-4.5); Potassium 3.2 mmol/L (3.5-5.1); Sodium 140 mmol/L (136-145)
[2022-02-28] MEDS: apixaban 5 mg Tablet PO ×2 (08:50→17:30)
[2022-02-28] MEDS: losartan 50 mg Tablet 25 MG PO (08:51)
[2022-02-28] MEDS: bumetanide 1 mg Tablet 2 MG PO ×2 (08:51→17:30)
[2022-02-28] MEDS: potassium chloride ER 20 mEq Tablet PO (08:51)
[2022-02-28] MEDS: morphine 4 mg/mL SDV 1 mL IVP (11:24)
--- NOTE | 2022-02-28 13:19 | PM.PN ---
Subjective Subjective: Seen this morning. Patient states his legs hurt a lot and he will not let us change dressing until he is given morphine. He says his home and morphine doses are different than what he is getting here. He would like those adjusted. Potassium 3.2 this AM. He was supposed to follow-up with wound care clinic last Wednesday but was unable to go. Vitals/I&O/Wt Last Vital Signs Temp 98.4 F 02/28/22 11:18 Pulse 71 02/28/22 11:18 Resp 18 02/28/22 11:24 BP 98/61 02/28/22 11:18 Pulse Ox 95 02/28/22 11:18 O2 Del Method 02/28/22 11:18 02/27/22 02/28/22 02/28/22 22:59 06:59 14:59 Intake Total 50 / 50 1400 / 1400 Balance 50 / 50 1400 / 1400 Weight last 48 hrs Weight 147.871 kg Physical Exam Narrative: Disheveled unkept appearance Appears dehydrated. Laying in bed stating his legs hurt. Foul-smelling dressing, left leg cellulitis with skin maceration Right leg calf area showing good signs of granulation tissue without worsening of cellulitis Skin is macerated due to bruising/purulent drainage from left leg Lymphedema, Patient is awake and alert S1, S2 Abdomen soft Currently on room air Pleasant and cooperative Hard of hearing Data 02/28/22 03:49 02/28/22 03:49 Micro: Microbiology 02/27/22 16:50 Blood Culture - Preliminary Blood SPECIMEN COLLECTED 02/27/22 16:35 Blood Culture - Preliminary Blood SPECIMEN COLLECTED A&P Assessment and plan (1) Lymphedema: (2) Chronic wound of extremity: (3) Lymphedema: (4) Moderate aortic stenosis: (5) Chronic right-sided CHF (congestive heart failure): (6) COPD (chronic obstructive pulmonary disease): (7) Obstructive sleep apnea: (8) Cellulitis: Plan Left leg cellulitis Chronic lymphedema, chronic right-sided congestive heart failure preserved ejection fraction exacerbation Continue diuretics Active oozing with purulent drainage Skin is macerated Recent debridement at wound care clinic He does have wound care nurse and PT once a week visits scheduled for him Recently finished 2 weeks of ciprofloxacin For now I would use vancomycin and Zosyn No signs of sepsis Requesting foot x-ray. No radiographically evident osseous erosions identified. If concerned for osteomyelitis, recommend MRI. Inflammatory markers are not high Patient is stating that he is not diabetic Check A1c level Cardiac diet Antibiotics can be de-escalated if he remains afebrile Wound care dressing: lymphadema wraps, hydroferablue then wrap 3x/week Discussed with general surgery. There is no need of debridement at this time. Continue Hydrofera Blue and wrap 3 times per week. Patient to follow-up in wound care clinic on Wednesday. I will continue patient on IV antibiotics for another day and then plan to discharge home for him to follow-up at wound care clinic. We will give Augmentin on discharge. Obstructive sleep apnea: CPAP at night Full code Cardiac DVT prophylaxis on board Attestations Medical Necessity Statement*: Anticipating discharge within 48 hours Time Spent in Patient Care: 40 Coding Level of Care Code Acute Real Property Appraiser for Danielleg Fwd Diagnoses Lymphedema I89.0 Chronic wound of extremity Lymphedema I89.0 Moderate aortic stenosis I35.0 Chronic right-sided CHF (congestive heart failure) I50.812 COPD (chronic obstructive pulmonary disease) J44.9 Obstructive sleep apnea G47.33 Cellulitis L03.90
[2022-02-28 19:38] LABS: Vancomycin Trough 24.1 ug/mL (10-15)
[2022-03-01] VITALS (12 sets, daily range): BP systolic 89–122; BP diastolic 54–66; PULSE 62–74; RESP 15–18; TEMP 36.6–36.9; O2SAT 91–96
[2022-03-01] MEDS: morphine IR 15 mg Tablet PO ×4 (01:29→22:09)
[2022-03-01] MEDS: piperacillin-tazobactam 3.375 GM in sodium chloride 0.9% (plus) 50 ML IV ×3 (02:25→17:09)
[2022-03-01 04:35] LABS: Anion Gap 10.8 (5-19); Blood Urea Nitrogen 11 mg/dL (8-23); Calcium 8.4 mg/dL (8.5-10.5); Carbon Dioxide 29 mmol/L (22-29); Chloride 100 mmol/L (98-107); Creatinine Clr Calc Pharmacy 132.2218; Glomerular Filtration Rate 96.4 mL/min (90-130); Glucose 120 mg/dL (65-115); Osmolality Calculated 285 mOsm/kg (285-295); Sodium 137 mmol/L (136-145)
[2022-03-01 05:04] LABS: Potassium 2.8 mmol/L (3.5-5.1)
--- NOTE | 2022-03-01 05:48 | PC.NURSE ---
critical potassium value of 2.8, Dr. Ware notified, recieved new order for 40meq po now.
[2022-03-01] MEDS: potassium chloride ER 20 mEq Tablet 40 MEQ PO (05:52)
[2022-03-01] MEDS: nicotine 21 mg Patch 1 PATCH TRANSDERMA (08:58)
[2022-03-01] MEDS: losartan 50 mg Tablet 25 MG PO (08:59)
[2022-03-01] MEDS: apixaban 5 mg Tablet PO ×2 (08:59→17:09)
[2022-03-01] MEDS: potassium chloride ER 20 mEq Tablet PO ×2 (09:00→09:02)
[2022-03-01] MEDS: bumetanide 1 mg Tablet 2 MG PO ×2 (09:00→17:09)
--- NOTE | 2022-03-01 10:09 | P.PN_ITS ---
Subjective Subjective: Seen this morning. Patient to follow-up with wound care clinic on Wednesday. When entered the room patient was lying quietly in a soon as he saw me he started saying he is in a lot of pain and almost started screaming and appearing very uncomfortable and started moving around in bed. The aide was in the room prior to arrival as and later I asked the aide if the patient was comfortable previously she said that he was lying quietly in bed prior to my arrival. Vitals/I&O/Wt Last Vital Signs Temp 98.0 F 03/01/22 08:00 Pulse 62 03/01/22 08:00 Resp 18 03/01/22 08:59 BP 93/66 03/01/22 08:59 Pulse Ox 91 03/01/22 08:00 O2 Del Method 03/01/22 08:00 02/28/22 03/01/22 03/01/22 22:59 06:59 14:59 Intake Total 690 / 2390 540 / 540 Balance 690 / 2390 540 / 540 Weight last 48 hrs Weight 147.871 kg Physical Exam Narrative: Disheveled unkept appearance Laying in bed comfortable at this time. Bandage not taken down today. Lymphedema, Patient is awake and alert S1, S2 Abdomen soft Currently on room air Pleasant and cooperative Hard of hearing Data 02/28/22 03:49 03/01/22 04:00 Micro: Microbiology 02/27/22 16:50 Blood Culture - Preliminary Blood NEGATIVE TO DATE 02/27/22 16:35 Blood Culture - Preliminary Blood NEGATIVE TO DATE 02/27/22 17:14 Wound Culture - Preliminary Leg - Left Gram Negative Rods A&P Assessment and plan (1) Lymphedema: (2) Chronic wound of extremity: (3) Lymphedema: (4) Moderate aortic stenosis: (5) Chronic right-sided CHF (congestive heart failure): (6) COPD (chronic obstructive pulmonary disease): (7) Obstructive sleep apnea: (8) Cellulitis: Plan Left leg cellulitis Chronic lymphedema, chronic right-sided congestive heart failure preserved ejection fraction exacerbation Continue diuretics Active oozing with purulent drainage Skin is macerated Recent debridement at wound care clinic He does have wound care nurse and PT once a week visits scheduled for him Recently finished 2 weeks of ciprofloxacin For now I would use vancomycin and Zosyn No signs of sepsis Requesting foot x-ray. No radiographically evident osseous erosions identified. If concerned for osteomyelitis, recommend MRI. Inflammatory markers are not high Patient is stating that he is not diabetic Check A1c level Cardiac diet Antibiotics can be de-escalated if he remains afebrile Wound care dressing: lymphadema wraps, hydroferablue then wrap 3x/week Discussed with general surgery. There is no need of debridement at this time. Continue Hydrofera Blue and wrap 3 times per week. Patient to follow-up in wound care clinic on Wednesday. Discussed with RN all the wound care orders.. I will continue patient on IV antibiotics for another day and then plan to discharge home for him to follow-up at wound care clinic. We will give Augmentin on discharge. Obstructive sleep apnea: CPAP at night Full code Cardiac DVT prophylaxis on board Attestations Medical Necessity Statement*: Anticipating discharge in a.m. after few more doses of IV antibiotics. Coding Level of Care Code Acute Computer Security Manager for g Fwd Diagnoses Lymphedema I89.0 Chronic wound of extremity Lymphedema I89.0 Moderate aortic stenosis I35.0 Chronic right-sided CHF (congestive heart failure) I50.812 COPD (chronic obstructive pulmonary disease) J44.9 Obstructive sleep apnea G47.33 Cellulitis L03.90
[2022-03-01] MEDS: vancomycin 1,250 MG/250 ML PIGGYBACK 250 MG IV ×2 (12:55→23:49)
[2022-03-02] VITALS (8 sets, daily range): BP systolic 107–129; BP diastolic 68–79; PULSE 66; RESP 16–19; TEMP 36.6; O2SAT 93–94
[2022-03-02 02:08] LABS: Basophils # 0.1 10^3/uL (0.0-0.1); Basophils % 0.9 %; Eosinophils # 0.4 10^3/uL (0.0-0.8); Eosinophils % 5.6 %; Hematocrit 34.2 % (42.0-52.0); Hemoglobin 11.2 g/dL (11.7-16.6); Lymphocytes % 12.8 %; Mean Corpuscular HGB Conc 32.7 g/dL (30.0-36.0); Mean Corpuscular Hemoglobin 31.5 pg (28.0-34.0); Mean Corpuscular Volume 96.3 fl (80-94); Mean Platelet Volume 9.6 fL (7.4-10.4); Monocytes # 0.6 10^3/uL (0.2-0.9); Monocytes % 7.8 %; Neutrophils # 5.71 10^3/uL (1.8-7.7); Neutrophils % 72.8 %; Nucleated Red Blood Cells % 0 %; Platelet Count 248 10^3/cmm (130-400); Red Blood Count 3.55 10^6/uL (4.1-5.3); Red Cell Distribution Width 14.5 % (12.1-15.1); White Blood Count 7.8 10^3/uL (4.0-10.0)
[2022-03-02] MEDS: piperacillin-tazobactam 3.375 GM in sodium chloride 0.9% (plus) 50 ML IV ×2 (02:12→10:51)
[2022-03-02 02:25] LABS: Anion Gap 11.2 (5-19); Blood Urea Nitrogen 11 mg/dL (8-23); Carbon Dioxide 28 mmol/L (22-29); Chloride 102 mmol/L (98-107); Creatinine Clr Calc Pharmacy 132.2218; Glomerular Filtration Rate 112.5 mL/min (90-130); Glucose 71 mg/dL (65-115); Osmolality Calculated 284 mOsm/kg (285-295); Potassium 3.2 mmol/L (3.5-5.1); Sodium 138 mmol/L (136-145)
[2022-03-02] MEDS: morphine IR 15 mg Tablet PO ×2 (04:11→10:13)
[2022-03-02] MEDS: nicotine 21 mg Patch 1 PATCH TRANSDERMA (08:51)
[2022-03-02] MEDS: bumetanide 1 mg Tablet 2 MG PO (08:52)
[2022-03-02] MEDS: losartan 50 mg Tablet 25 MG PO (08:52)
[2022-03-02] MEDS: apixaban 5 mg Tablet PO (08:52)
[2022-03-02] MEDS: potassium chloride ER 20 mEq Tablet PO (08:52)
[2022-03-02 11:03] LABS: Vancomycin Trough 10.9 ug/mL (10-15)
--- NOTE | 2022-03-02 11:03 | P.DS_ITS ---
Discharge Providers Date of Admission: 02/27/22 19:57 Date of Discharge: March 02, 2022 Attending Provider at Admission: Shree Ware MD Attending Provider at Discharge: Shree Ware MD Primary Care Provider: Emy Russ MD Diagnoses at Discharge Discharge Diagnosis (1) Lymphedema: Status: Acute (2) Chronic wound of extremity: Status: Acute (3) Lymphedema: Status: Acute (4) Moderate aortic stenosis: Status: Acute (5) Chronic right-sided CHF (congestive heart failure): Status: Acute (6) COPD (chronic obstructive pulmonary disease): Status: Acute (7) Obstructive sleep apnea: Status: Acute (8) Cellulitis: Status: Acute Reason for Visit Reason for Visit: leg infections Hospital Course Hospital Course 67-year-old male who recently had debridement of his foot ulcers, present to the hospital for increased oozing from left leg wound, he was admitted for purulent cellulitis concern he was given vancomycin and Zosyn, dressing was changed on daily basis, he does have weekly PT, wound care nurse visits scheduled, he remained afebrile no signs of sepsis or bacteremia. Foot x-ray did not show any signs of osteomyelitis. Inflammatory markers were not high as well. He can follow-up outpatient with wound care clinic for his lymphedema related chronic foot ulcers. I do believe he would benefit from compression stockings for chronic lymphedema. He uses CPAP for his sleep apnea. He has been prescribed Bactrim for 5 days at the time of discharge Physical Exam Narrative: Unkept appearance Morbidly obese Awake alert S1, S2 Currently doing well on room air Abdomen soft however distended Visceral obesity Chronic lymphedema Feet and legs covered with dressing Does not need active debridement, good granulation tissue around ulcers of his legs and feet Discharge Data Studies Completed and Pending Completed Studies During Hospitalization Category Date Time Status XR foot LT 2V [id number] Routine Exams 02/27/22 22:16 Completed Pending at discharge Category Date Time Status Blood Culture Stat Lab 02/27/22 16:50 Results Wound Culture Stat Lab 02/27/22 17:14 Results Radiology Impressions Foot X-Ray 02/27/22 22:16 IMPRESSION: No radiographically evident osseous erosions identified. If concerned for osteomyelitis, recommend MRI. Laboratory Results WBC 7.8 10^3/uL (4.0-10.0) 03/02/22 01:25 RBC 3.55 10^6/uL (4.1-5.3) L 03/02/22 01:25 Hgb 11.2 g/dL (11.7-16.6) L 03/02/22 01:25 Hct 34.2 % (42.0-52.0) L 03/02/22 01:25 MCV 96.3 fl (80-94) H 03/02/22 01:25 MCH 31.5 pg (28.0-34.0) 03/02/22 01:25 MCHC 32.7 g/dL (30.0-36.0) 03/02/22 01:25 RDW 14.5 % (12.1-15.1) 03/02/22 01:25 Plt Count 248 10^3/cmm (130-400) 03/02/22 01:25 MPV 9.6 fL (7.4-10.4) 03/02/22 01:25 Neut % (Auto) 72.8 % 03/02/22 01:25 Lymph % (Auto) 12.8 % 03/02/22 01:25 [place] % (Auto) 7.8 % 03/02/22 01:25 Eos % (Auto) 5.6 % 03/02/22 01:25 Baso % (Auto) 0.9 % 03/02/22 01:25 Neut # (Auto) 5.71 10^3/uL (1.8-7.7) 03/02/22 01:25 Lymph # (Auto) 1.0 10^3/uL (0.8-4.8) 03/02/22 01:25 [place] # (Auto) 0.6 10^3/uL (0.2-0.9) 03/02/22 01:25 Eos # (Auto) 0.4 10^3/uL (0.0-0.8) 03/02/22 01:25 Baso # (Auto) 0.1 10^3/uL (0.0-0.1) 03/02/22 01:25 Nucleated RBC % (auto) 0 % 03/02/22 01:25 Nucleated RBCs # 0.0 /100WBC 03/02/22 01:25 ESR 13 mm/hr (0-10) H 02/27/22 16:35 Sodium 138 mmol/L (136-145) 03/02/22 01:25 Potassium 3.2 mmol/L (3.5-5.1) L 03/02/22 01:25 Chloride 102 mmol/L (98-107) 03/02/22 01:25 Carbon Dioxide 28 mmol/L (22-29) 03/02/22 01:25 Anion Gap 11.2 (5-19) 03/02/22 01:25 BUN 11 mg/dL (8-23) 03/02/22 01:25 Creatinine 0.7 mg/dL (0.7-1.2) 03/02/22 01:25 GFR Calculation 112.5 mL/min (90-130) 03/02/22 01:25 Glucose 71 mg/dL (65-115) 03/02/22 01:25 Estimat Average Glucose 103 02/27/22 16:35 Hemoglobin A1c 5.2 % (4.0-6.0) 02/27/22 16:35 Calculated Osmolality 284 mOsm/kg (285-295) L 03/02/22 01:25 Lactic Acid 1.9 mmol/L (0.5-2.2) 02/27/22 16:35 Calcium 8.0 mg/dL (8.5-10.5) L 03/02/22 01:25 Phosphorus 3.9 mg/dL (2.5-4.5) 02/28/22 03:49 Magnesium 1.9 mg/dL (1.7-2.3) 02/28/22 03:49 Total Bilirubin 0.6 mg/dL (0.15-1.2) 02/27/22 16:35 AST 13 U/L (0-40) 02/27/22 16:35 ALT 8 U/L (0-41) 02/27/22 16:35 Alkaline Phosphatase 105 U/L (40-130) 02/27/22 16:35 C-Reactive Protein 19.8 mg/L (0.0-4.9) H 02/28/22 03:49 Total Protein 7.1 g/dL (6.6-8.7) 02/27/22 16:35 Albumin 3.5 g/dL (3.5-5.2) 02/27/22 16:35 Globulin 3.6 g/dL (1.3-4.6) 02/27/22 16:35 Procalcitonin 0.03 ng/mL (0-0.5) 02/27/22 16:35 Vancomycin Trough 10.9 ug/mL (10-15) 03/02/22 10:33 Vitals Last Vital Signs Temp 97.9 F 03/02/22 04:00 Pulse 66 03/02/22 04:00 Resp 18 03/02/22 10:13 BP 115/71 03/02/22 08:52 Pulse Ox 93 03/02/22 04:11 O2 Del Method 03/01/22 20:00 Discharge Plan Discharge Patient Disposition: Home Condition: Stable Prescriptions: New sulfamethoxazole-trimethoprim [Bactrim DS] 800-160 mg tablet 1 tab PO DAILY 5 Days Qty: 10 0RF Continued morphine 15 mg tablet 15 - 30 mg PO .EVERY 4-6 HOURS MDD 6 tabs PRN (Reason: Pain) furosemide 80 mg tablet 120 mg PO BID Breztri Aerosphere 160-9-4.8 mcg/actuation HFA aerosol inhaler 2 inh inhalation BID Qty: 10.7 5RF fluticasone propion-salmeterol [Advair Diskus] 250-50 mcg/dose Blister With Device 1 inh INHALATION BID ipratropium-albuterol 0.5 mg-3 mg(2.5 mg base)/3 mL solution for nebulization 3 ml INHALATION Q6H PRN (Reason: Shortness Of Breath) ergocalciferol (vitamin D2) [Vitamin D2] 1,250 mcg (50,000 unit) Capsule 50,000 unit PO Q7D Rx Instructions: on Sundays albuterol sulfate [ProAir HFA] 90 mcg/actuation Hfa Aerosol Inhaler 2 puff INHALATION QID PRN (Reason: Shortness Of Breath) losartan 25 mg tablet 25 mg PO DAILY Qty: 30 0RF potassium chloride 20 mEq tablet extended release 20 meq PO DAILY Qty: 30 0RF Senna Plus 8.6-50 mg capsule 1 tab-cap PO BID PRN (Reason: constipation) Qty: 14 0RF morphine 30 mg Tablet Extended Release 30 mg PO Q12H Qty: 0 0RF Eliquis DVT-PE Treat 30D Start 5 mg (74 tabs) tablets,dose pack See Rx Instructions .ROUTE .COMPLEX Qty: 74 0RF Rx Instructions: orally per package directions Discontinued Cipro 500 mg Tablet 500 mg PO BID Discharge Orders: Discharge Order (Routine); Ordered 03/02/22 Ordered By: Shree Ware Referrals: Emy Russ MD [Primary Care Provider] - 1-3 days Discharge Diet: Cardiac Discharge Activity: Use walker/crutches as instructed Patient Instructions: Opioid Safety Discharge Attestations Time Spent in Discharge Care*: less than 30 min Status at Discharge: Cognitive status at discharge: cognitively intact , Behavioral status at discharge: cooperative , Quality Metrics Clinical Quality Measures [ No reported AMI, CVA or VTE this stay] Coding Level of Care Code Acute Chg FW DC note Diagnoses Lymphedema I89.0 Chronic wound of extremity Lymphedema I89.0 Moderate aortic stenosis I35.0 Chronic right-sided CHF (congestive heart failure) I50.812 COPD (chronic obstructive pulmonary disease) J44.9 Obstructive sleep apnea G47.33 Cellulitis L03.90
== END 2022-03-02 14:33 | disposition home or self-care (01) ==
LOC: ER 19:31 → MEDSURG 19:57
PROVIDERS: Internal Medicine; Admitting Provider Internal Medicine; Emergency Provider Emergency Medicine; PCP Family Medicine; Visit Provider Internal Medicine
DX: I89.0 Lymphedema, not elsewhere classified (principal); I35.0 Nonrheumatic aortic (valve) stenosis; I50.812 Chronic right heart failure; J44.9 Chronic obstructive pulmonary disease, unspecified; G47.33 Obstructive sleep apnea (adult) (pediatric); L03.90 Cellulitis, unspecified; E66.01 Morbid (severe) obesity due to excess calories; Z68.42 Body mass index [BMI] 45.0-49.9, adult; I50.9 Heart failure, unspecified; F17.210 Nicotine dependence, cigarettes, uncomplicated
CPT/HCPCS: 36415; 73620; 80048; 80053; 80202; 83036; 83605; 83735; 84100; 84145; 85025; 85651; 86140; 87040; 87070; 87077; 87186; 96365; 96366; 96367; 96375; 96376; 99285; G0378; J1885; J2270; J2543; J3370; J7040

== ENCOUNTER → 2022-03-05 14:09 | Outpatient (BNVA) | payer OTHER, SELFPAY | PROVIDERS: PCP Family Medicine; Visit Provider Surgery | DX: I89.0 Lymphedema, not elsewhere classified (principal); L97.812 Non-pressure chronic ulcer of other part of right lower leg with fat layer exposed; L97.822 Non-pressure chronic ulcer of other part of left lower leg with fat layer exposed | CPT/HCPCS: 97597; 97598; A6253 ==

== ENCOUNTER 2022-03-08 06:00 | Outpatient (RCR) | payer OTHER, SELFPAY | END 2022-04-07 23:59 | disposition home or self-care (01) | LOC: SPT 06:00 | PROVIDERS: PCP Family Medicine; Visit Provider Registered Nurse Neonatal Intensive Care | DX: I87.2 Venous insufficiency (chronic) (peripheral) (principal); L97.812 Non-pressure chronic ulcer of other part of right lower leg with fat layer exposed; L97.822 Non-pressure chronic ulcer of other part of left lower leg with fat layer exposed | CPT/HCPCS: 29581; 97140 ==

== ENCOUNTER → 2022-03-13 14:59 | Outpatient (BNVA) | payer OTHER, SELFPAY | PROVIDERS: PCP Family Medicine; Visit Provider Thoracic Surgery (Cardiothoracic Vascular Surgery) | DX: I96 Gangrene, not elsewhere classified (principal); I89.0 Lymphedema, not elsewhere classified; L97.812 Non-pressure chronic ulcer of other part of right lower leg with fat layer exposed; L97.822 Non-pressure chronic ulcer of other part of left lower leg with fat layer exposed | CPT/HCPCS: 97597; 97598; A6253 ==

== ENCOUNTER → 2022-03-20 15:42 | Outpatient (BNVA) | payer OTHER, SELFPAY | PROVIDERS: PCP Family Medicine; Visit Provider Thoracic Surgery (Cardiothoracic Vascular Surgery) | DX: I89.0 Lymphedema, not elsewhere classified (principal); L97.812 Non-pressure chronic ulcer of other part of right lower leg with fat layer exposed; L97.822 Non-pressure chronic ulcer of other part of left lower leg with fat layer exposed | CPT/HCPCS: 99213; A6252; A6253 ==

== ENCOUNTER → 2022-03-27 14:53 | Outpatient (BNVA) | payer OTHER, SELFPAY | PROVIDERS: PCP Family Medicine; Visit Provider Thoracic Surgery (Cardiothoracic Vascular Surgery) | DX: I89.0 Lymphedema, not elsewhere classified (principal); L97.822 Non-pressure chronic ulcer of other part of left lower leg with fat layer exposed; L97.812 Non-pressure chronic ulcer of other part of right lower leg with fat layer exposed | CPT/HCPCS: 97597; 97598; A6252 ==

== ENCOUNTER → 2022-04-10 14:53 | Outpatient (BNVA) | payer OTHER, SELFPAY | PROVIDERS: PCP Family Medicine; Visit Provider Thoracic Surgery (Cardiothoracic Vascular Surgery) | DX: I89.0 Lymphedema, not elsewhere classified (principal); L97.812 Non-pressure chronic ulcer of other part of right lower leg with fat layer exposed; L97.822 Non-pressure chronic ulcer of other part of left lower leg with fat layer exposed | CPT/HCPCS: 97597; 97598; A6253 ==

== ENCOUNTER → 2022-04-24 14:54 | Outpatient (BNVA) | payer OTHER, SELFPAY | PROVIDERS: PCP Family Medicine; Visit Provider Thoracic Surgery (Cardiothoracic Vascular Surgery) | DX: I96 Gangrene, not elsewhere classified (principal); I89.0 Lymphedema, not elsewhere classified; L97.812 Non-pressure chronic ulcer of other part of right lower leg with fat layer exposed; L97.822 Non-pressure chronic ulcer of other part of left lower leg with fat layer exposed | CPT/HCPCS: 97597; 97598; A6253 ==

== ENCOUNTER → 2022-05-13 14:49 | Outpatient (BNVA) | payer OTHER, SELFPAY | PROVIDERS: PCP Family Medicine; Visit Provider Thoracic Surgery (Cardiothoracic Vascular Surgery) | DX: I89.0 Lymphedema, not elsewhere classified (principal); L97.812 Non-pressure chronic ulcer of other part of right lower leg with fat layer exposed; L97.822 Non-pressure chronic ulcer of other part of left lower leg with fat layer exposed | CPT/HCPCS: 97597; 97598; A6252 ==

== ENCOUNTER → 2022-06-03 13:10 | Outpatient (BNVA) | payer OTHER, SELFPAY | PROVIDERS: PCP Family Medicine; Visit Provider Thoracic Surgery (Cardiothoracic Vascular Surgery) | DX: I89.0 Lymphedema, not elsewhere classified (principal); L97.812 Non-pressure chronic ulcer of other part of right lower leg with fat layer exposed; L97.822 Non-pressure chronic ulcer of other part of left lower leg with fat layer exposed; I96 Gangrene, not elsewhere classified | CPT/HCPCS: 97597; 97598; A6252 ==

== ENCOUNTER 2022-06-14 15:50 | Emergency (ER) | payer OTHER, SELFPAY ==
[2022-06-14 15:56] VITALS: BP 126/74; PULSE 77; RESP 18; TEMP 36.5; O2SAT 93
[2022-06-14 16:46] VITALS: PULSE 71; O2SAT 96
--- NOTE | 2022-06-14 16:46 | PC.NURSE ---
WHILE IN LOBBY WITH PT, PT CONDITION IS UNCHANGED. PT DOES NOT VERBALIZE ANY NEEDS AT THIS TIME.
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
--- NOTE | 2022-06-14 17:28 | CTR_ITS ---
PROCEDURE INFORMATION: Exam: CT Head Without Contrast Exam date and time: 06/14/2022 6:29 PM Age: 67 years old Clinical indication: Other: Confusion TECHNIQUE: Imaging protocol: Computed tomography of the head without contrast. Radiation optimization: All CT scans at this facility use at least one of these dose optimization techniques: automated exposure control; mA and/or kV adjustment per patient size (includes targeted exams where dose is matched to clinical indication); or iterative reconstruction. REPORTING DATA: Count of CT and Cardiac NM exams in prior 12 months: This patient has received 0 known CTs and 0 known cardiac nuclear medicine studies in the 12 months prior to the current study. COMPARISON: No relevant prior studies available. RADIATION DOSE METRICS: Total DLP (mGy-cm): 1162.98 FINDINGS: Brain: Normal. No hemorrhage. Unremarkable white matter. No mass effect. Cerebral ventricles: No ventriculomegaly. Paranasal sinuses: Visualized sinuses are unremarkable. No fluid levels. Mastoid air cells: Visualized mastoid air cells are well aerated. Bones/joints: Unremarkable. No acute fracture. Soft tissues: Unremarkable. CT/CT head wo con* [id number] IMPRESSION: No acute intracranial abnormality.
--- NOTE | 2022-06-14 17:28 | XRR_ITS ---
PROCEDURE INFORMATION: Exam: XR Chest Exam date and time: 06/14/2022 5:33 PM Age: 67 years old Clinical indication: Shortness of breath; Additional info: SOB TECHNIQUE: Imaging protocol: Radiologic exam of the chest. Views: 1 view. COMPARISON: CR XR chest 1V portable [id number] 02/06/2021 5:55 AM FINDINGS: Lungs: Unchanged hyperinflation with mild basilar fibrosis. Pulmonary vascularity is within normal limits. No consolidation. Pleural spaces: Unremarkable. No pleural effusion. No pneumothorax. Heart/Mediastinum: Unremarkable. No cardiomegaly. Bones/joints: No acute abnormality. Severe degenerative changes in the spine and shoulders are again noted. XR/XR chest 1V portable [id number] IMPRESSION: No acute findings.
[2022-06-14 17:40] VITALS: BP 127/87; PULSE 71; O2SAT 98
[2022-06-14 17:46] LABS: Basophils # 0.1 10^3/uL (0.0-0.1); Basophils % 0.4 %; Eosinophils # 0.2 10^3/uL (0.0-0.8); Eosinophils % 1.4 %; Hematocrit 38.7 % (42.0-52.0); Hemoglobin 12.7 g/dL (11.7-16.6); Lymphocytes # 1.2 10^3/uL (0.8-4.8); Lymphocytes % 11.1 %; Mean Corpuscular HGB Conc 32.8 g/dL (30.0-36.0); Mean Corpuscular Volume 91.5 fl (80-94); Mean Platelet Volume 9.6 fL (7.4-10.4); Monocytes # 0.9 10^3/uL (0.2-0.9); Monocytes % 8.4 %; Neutrophils # 8.73 10^3/uL (1.8-7.7); Neutrophils % 78.3 %; Nucleated Red Blood Cells % 0 %; Platelet Count 262 10^3/cmm (130-400); Red Blood Count 4.23 10^6/uL (4.1-5.3); Red Cell Distribution Width 14.7 % (12.1-15.1); White Blood Count 11.2 10^3/uL (4.0-10.0)
[2022-06-14 18:08] LABS: Ammonia 15 umol/L (16-60)
[2022-06-14 18:11] LABS: Troponin(5th) Baseline 20 ng/L (0-15)
[2022-06-14 18:12] LABS: ABG PCO2 42.7 mmHg (35-45); ABG PH Result 7.46 (7.35-7.45); Arterial Blood Gas Hematocrit 39.1 % (42-52); Base Excess ABG 5.7 mmol/L (-2.0-2.0); Blood Gas Allen Test Pos; Blood Gas Operator Identificat CAK; Blood Gas Sample Site Radial, left; Blood Gas Sample Type Arterial; HCO3 ABG 30.2 mmol/L (22-26); Oxygen Device ROOM AIR; PO2 ABG 58.3 mmHg (80.0-100.0)
--- NOTE | 2022-06-14 18:18 | USR_ITS ---
PROCEDURE INFORMATION: Exam: US Duplex Lower Extremity Veins, Bilateral Exam date and time: 06/14/2022 6:40 PM Age: 67 years old Clinical indication: Edema, localized; Upper extremity, bilateral; Additional info: Swelling, HX dvt TECHNIQUE: Imaging protocol: Real-time duplex ultrasound of the bilateral extremities with 2-D esparza scale, color Doppler flow and spectral waveform analysis including responses to compression and other maneuvers (when performed) with image documentation. Complete exam focused on the lower extremity veins. COMPARISON: CT abdomen pelvis wo con [id number] 02/07/2021 10:39 AM FINDINGS: Right deep veins: Unremarkable. The common femoral, femoral, proximal profunda femoral and popliteal veins are patent without thrombus. Normal Doppler waveforms. Normal compressibility and/or augmentation response. Right superficial veins: Saphenofemoral junction is patent without thrombus. Left deep veins: Unremarkable. The common femoral, femoral, proximal profunda femoral and popliteal veins are patent without thrombus. Normal Doppler waveforms. Normal compressibility and/or augmentation response. Left superficial veins: Saphenofemoral junction is patent without thrombus. Soft tissues: Unremarkable. US/CV venous duplex [facility] [id number] IMPRESSION: No evidence of deep vein thrombosis.
[2022-06-14 18:19] LABS: NT Pro B Type Natriuretic Pept 202 pg/mL (0-125); Procalcitonin 0.04 ng/mL (0-0.5); Thyroid Stimulating Hormone 1.59 uIU/mL (0.27-4.20)
[2022-06-14 18:30] LABS: Alanine Aminotransferase 7 U/L (0-41); Albumin Level 3.6 g/dL (3.5-5.2); Alkaline Phosphatase 72 U/L (40-130); Anion Gap 10.6 (5-19); Aspartate Amino Transferase 10 U/L (0-40); Blood Urea Nitrogen 31 mg/dL (8-23); C Reactive Protein 77.5 mg/L (0.0-4.9); Calcium 9.2 mg/dL (8.5-10.5); Carbon Dioxide 31 mmol/L (22-29); Chloride 95 mmol/L (98-107); Globulin 3.9 g/dL (1.3-4.6); Glomerular Filtration Rate 112.5 mL/min (90-130); Glucose 93 mg/dL (65-115); Osmolality Calculated 282 mOsm/kg (285-295); Potassium 3.6 mmol/L (3.5-5.1); Sodium 133 mmol/L (136-145); Total Bilirubin 0.4 mg/dL (0.15-1.2); Total Protein 7.5 g/dL (6.6-8.7)
--- NOTE | 2022-06-14 18:45 | PC.NURSE ---
Ultrasound in room
--- NOTE | 2022-06-14 19:29 | ECG_ITS ---
[facility] Test Date: 2022-06-14 Pat Name: Alondra Carolina Department: Room: Gender: Male [employer] Specialist: : 1955 Requested By: Harish Suresh Order Number: [id number] Apollo MD: Minna Welch M.D. Measurements Intervals [place] Rate: 81 P: 28 HI: 210 QRS: 97 QRSD: 112 T: 85 QT: 367 QTc: 427 Interpretive Statements SINUS RHYTHM WITH FIRST DEGREE AV BLOCK BORDERLINE RIGHT AXIS DEVIATION [QRS AXIS > 90] INCOMPLETE RIGHT BUNDLE BRANCH BLOCK [90+ ms QRS DURATION, TERMINAL R IN V1/V2, 40+ ms S IN I/aVL/V4/V5/V6] No previous ECG available for comparison Electronically Signed On 06-14-2022 22:21:38 CDT by Minna Welch M.D. [email or web address]
[2022-06-14 19:45] VITALS: BP 157/107; PULSE 87; RESP 16; O2SAT 94
[2022-06-14 19:57] LABS: Troponin 5 2HR 20.13 ng/L (0-15)
[2022-06-14 19:59] LABS: Troponin 5 2HR Delta 0.13 ABS# (0-10)
[2022-06-14 20:32] VITALS: BP 149/89; PULSE 88; RESP 16; O2SAT 97
== END 2022-06-14 20:33 | disposition home or self-care (01) ==
PROVIDERS: Emergency Medicine; Emergency Provider Emergency Medicine; PCP Family Medicine
DX: M79.89 Other specified soft tissue disorders (principal); L03.116 Cellulitis of left lower limb; L03.115 Cellulitis of right lower limb; I11.0 Hypertensive heart disease with heart failure; I50.9 Heart failure, unspecified; J44.9 Chronic obstructive pulmonary disease, unspecified; F17.210 Nicotine dependence, cigarettes, uncomplicated
CPT/HCPCS: 36415; 36600; 70450; 71045; 80053; 82140; 82803; 83880; 84145; 84443; 84484; 85025; 86140; 87040; 93005; 93970; 99285

== ENCOUNTER → 2022-06-17 13:59 | Outpatient (BNVA) | payer OTHER, SELFPAY | PROVIDERS: PCP Family Medicine; Visit Provider Thoracic Surgery (Cardiothoracic Vascular Surgery) | DX: I89.0 Lymphedema, not elsewhere classified (principal); L97.812 Non-pressure chronic ulcer of other part of right lower leg with fat layer exposed; L97.822 Non-pressure chronic ulcer of other part of left lower leg with fat layer exposed | CPT/HCPCS: 99213; A6253 ==

== ENCOUNTER → 2022-07-01 15:02 | Outpatient (BNVA) | payer OTHER, SELFPAY | PROVIDERS: PCP Family Medicine; Visit Provider Thoracic Surgery (Cardiothoracic Vascular Surgery) | DX: I89.0 Lymphedema, not elsewhere classified (principal); L97.812 Non-pressure chronic ulcer of other part of right lower leg with fat layer exposed; L97.822 Non-pressure chronic ulcer of other part of left lower leg with fat layer exposed | CPT/HCPCS: 97597; 97598; A6252 ==

== ENCOUNTER → 2022-07-15 14:41 | Outpatient (BNVA) | payer OTHER, SELFPAY | PROVIDERS: PCP Family Medicine; Visit Provider Thoracic Surgery (Cardiothoracic Vascular Surgery) | DX: L97.811 Non-pressure chronic ulcer of other part of right lower leg limited to breakdown of skin (principal); L97.821 Non-pressure chronic ulcer of other part of left lower leg limited to breakdown of skin | CPT/HCPCS: 97597; 97598 ==

== ENCOUNTER → 2022-07-29 14:51 | Outpatient (BNVA) | payer OTHER, SELFPAY | PROVIDERS: PCP Family Medicine; Visit Provider Thoracic Surgery (Cardiothoracic Vascular Surgery) | DX: I89.0 Lymphedema, not elsewhere classified (principal); L97.812 Non-pressure chronic ulcer of other part of right lower leg with fat layer exposed; L97.822 Non-pressure chronic ulcer of other part of left lower leg with fat layer exposed | CPT/HCPCS: 97597; 97598 ==

== ENCOUNTER → 2022-08-14 15:34 | Outpatient (BNVA) | payer OTHER, SELFPAY | PROVIDERS: PCP Family Medicine; Visit Provider Thoracic Surgery (Cardiothoracic Vascular Surgery) | DX: I89.0 Lymphedema, not elsewhere classified (principal); L97.812 Non-pressure chronic ulcer of other part of right lower leg with fat layer exposed; L97.822 Non-pressure chronic ulcer of other part of left lower leg with fat layer exposed | CPT/HCPCS: 99213 ==

== ENCOUNTER → 2022-09-02 14:53 | Outpatient (BNVA) | payer OTHER, SELFPAY | PROVIDERS: PCP Family Medicine; Visit Provider Nurse Practitioner Family | DX: I96 Gangrene, not elsewhere classified (principal); I89.0 Lymphedema, not elsewhere classified; L97.812 Non-pressure chronic ulcer of other part of right lower leg with fat layer exposed; L97.822 Non-pressure chronic ulcer of other part of left lower leg with fat layer exposed | CPT/HCPCS: 97597; 97598 ==

== ENCOUNTER → 2022-09-16 13:40 | Outpatient (BNVA) | payer OTHER, SELFPAY | PROVIDERS: PCP Family Medicine; Visit Provider Thoracic Surgery (Cardiothoracic Vascular Surgery) | DX: I89.0 Lymphedema, not elsewhere classified (principal); L97.812 Non-pressure chronic ulcer of other part of right lower leg with fat layer exposed; L97.822 Non-pressure chronic ulcer of other part of left lower leg with fat layer exposed | CPT/HCPCS: 97597; 97598 ==

== ENCOUNTER → 2022-09-30 14:13 | Outpatient (BNVA) | payer OTHER, SELFPAY | PROVIDERS: PCP Family Medicine; Visit Provider Thoracic Surgery (Cardiothoracic Vascular Surgery) | DX: I89.0 Lymphedema, not elsewhere classified (principal); L97.812 Non-pressure chronic ulcer of other part of right lower leg with fat layer exposed; L97.822 Non-pressure chronic ulcer of other part of left lower leg with fat layer exposed | CPT/HCPCS: 97597; 97598 ==

== ENCOUNTER → 2022-10-14 14:17 | Outpatient (BNVA) | payer OTHER, SELFPAY | PROVIDERS: PCP Family Medicine; Visit Provider Thoracic Surgery (Cardiothoracic Vascular Surgery) | DX: I96 Gangrene, not elsewhere classified (principal); I89.0 Lymphedema, not elsewhere classified; L97.812 Non-pressure chronic ulcer of other part of right lower leg with fat layer exposed; L97.822 Non-pressure chronic ulcer of other part of left lower leg with fat layer exposed | CPT/HCPCS: 97597; 97598 ==

== ENCOUNTER → 2022-10-21 12:58 | Outpatient (BNVA) | payer OTHER, SELFPAY | PROVIDERS: PCP Family Medicine; Visit Provider Thoracic Surgery (Cardiothoracic Vascular Surgery) | DX: I96 Gangrene, not elsewhere classified (principal); I89.0 Lymphedema, not elsewhere classified; L97.812 Non-pressure chronic ulcer of other part of right lower leg with fat layer exposed; L97.822 Non-pressure chronic ulcer of other part of left lower leg with fat layer exposed | CPT/HCPCS: 97597; 97598 ==

== ENCOUNTER → 2022-11-04 12:54 | Outpatient (BNVA) | payer OTHER, SELFPAY | PROVIDERS: PCP Family Medicine; Visit Provider Thoracic Surgery (Cardiothoracic Vascular Surgery) | DX: I89.0 Lymphedema, not elsewhere classified (principal); L97.812 Non-pressure chronic ulcer of other part of right lower leg with fat layer exposed; L97.822 Non-pressure chronic ulcer of other part of left lower leg with fat layer exposed | CPT/HCPCS: 97597; 97598; A6197 ==

== ENCOUNTER → 2022-12-16 15:50 | Outpatient (BNVA) | payer OTHER, SELFPAY | PROVIDERS: PCP Family Medicine; Visit Provider Thoracic Surgery (Cardiothoracic Vascular Surgery) | DX: I89.0 Lymphedema, not elsewhere classified (principal) | CPT/HCPCS: 99213 ==

== ENCOUNTER → 2023-06-17 13:55 | Outpatient (BNVA) | payer OTHER, SELFPAY | PROVIDERS: PCP Family Medicine; Visit Provider Thoracic Surgery (Cardiothoracic Vascular Surgery) | DX: L97.521 Non-pressure chronic ulcer of other part of left foot limited to breakdown of skin (principal); I89.0 Lymphedema, not elsewhere classified; L97.821 Non-pressure chronic ulcer of other part of left lower leg limited to breakdown of skin; L97.811 Non-pressure chronic ulcer of other part of right lower leg limited to breakdown of skin; I96 Gangrene, not elsewhere classified | CPT/HCPCS: 97597; 97598; 99213; A6197; A6253 ==

== ENCOUNTER → 2023-06-24 15:39 | Outpatient (BNVA) | payer OTHER, SELFPAY | PROVIDERS: PCP Family Medicine; Visit Provider Thoracic Surgery (Cardiothoracic Vascular Surgery) | DX: I96 Gangrene, not elsewhere classified (principal); L97.521 Non-pressure chronic ulcer of other part of left foot limited to breakdown of skin; I89.0 Lymphedema, not elsewhere classified; L97.821 Non-pressure chronic ulcer of other part of left lower leg limited to breakdown of skin; L97.811 Non-pressure chronic ulcer of other part of right lower leg limited to breakdown of skin | CPT/HCPCS: 97597; 97598; A6197 ==

== ENCOUNTER → 2023-07-01 16:07 | Outpatient (BNVA) | payer OTHER, SELFPAY | PROVIDERS: PCP Family Medicine; Visit Provider Thoracic Surgery (Cardiothoracic Vascular Surgery) | DX: Z09 Encounter for follow-up examination after completed treatment for conditions other than malignant neoplasm (principal); Z87.2 Personal history of diseases of the skin and subcutaneous tissue | CPT/HCPCS: 99212; A6197 ==

== ENCOUNTER 2024-05-03 19:32 | Emergency (ER) | payer OTHER, SELFPAY ==
[2024-05-03 19:32] VITALS: BP 110/76; PULSE 85; RESP 18; O2SAT 97
--- NOTE | 2024-05-03 19:36 | CTR_ITS ---
PROCEDURE INFORMATION: Exam: CT Head Without Contrast Exam date and time: 05/03/2024 8:17 PM Age: 69 years old Clinical indication: Altered mental status/memory loss; Confusion or disorientation; Additional info: Encephalopathy, altered mental status TECHNIQUE: Imaging protocol: Computed tomography of the head without contrast. Radiation optimization: All CT scans at this facility use at least one of these dose optimization techniques: automated exposure control; mA and/or kV adjustment per patient size (includes targeted exams where dose is matched to clinical indication); or iterative reconstruction. COMPARISON: CT head wo con* [id number] 06/14/2022 6:29 PM RADIATION DOSE METRICS: Total DLP (mGy-cm): 1359.44 FINDINGS: Brain: Age-related brain parenchymal atrophy. Areas of hypoattenuation in the periventricular and subcortical deep white matter likely on the basis of chronic microvascular ischemic changes. No acute intra cranial hemorrhage. No mass effect or midline shift. No definitive CT evidence of acute territorial infarction. Cerebral ventricles: No ventriculomegaly. Paranasal sinuses: Visualized sinuses are unremarkable. No fluid levels. Mastoid air cells: Visualized mastoid air cells are well aerated. Bones: Intact calvarium Soft tissues: Unremarkable. CT/CT head wo con* [id number] IMPRESSION: No acute intracranial process. Senescent changes. If there is continued clinical concern for an acute ischemic event then follow up with a brain MRI examination.
--- NOTE | 2024-05-03 19:36 | XRR_ITS ---
PROCEDURE INFORMATION: Exam: XR Chest Exam date and time: 05/03/2024 7:48 PM Age: 69 years old Clinical indication: Other: Weakness TECHNIQUE: Imaging protocol: Radiologic exam of the chest. Views: 1 view. COMPARISON: CR XR chest 1V portable [id number] 06/14/2022 5:33 PM FINDINGS: Lungs: Unremarkable. No consolidation. Pleural spaces: Unremarkable. No pleural effusion. No pneumothorax. Heart/Mediastinum: See Vasculature finding. Vasculature: Tortuous thoracic aortic contour. Otherwise unchanged cardiomediastinal silhouette. Bones/joints: Unremarkable. XR/XR chest 1V portable [id number] IMPRESSION: As above.
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
[2024-05-03 19:56] LABS: Basophils % 0.3 %; Hematocrit 42.7 % (37-53); Lymphocytes # 0.5 10^3/uL (0.8-4.8); Lymphocytes % 7.9 %; Mean Corpuscular HGB Conc 33.3 g/dL (30-55); Mean Corpuscular Hemoglobin 29.5 pg (27-33); Mean Corpuscular Volume 88.6 fl (82-101); Mean Platelet Volume 9.7 fL (7.4-10.4); Monocytes # 0.6 10^3/uL (0.2-0.9); Monocytes % 8.7 %; Neutrophils # 5.68 10^3/uL (1.8-7.7); Neutrophils % 82.8 %; Nucleated Red Blood Cells % 0 %; Platelet Count 155 10^3/cmm (157-399); Red Blood Count 4.82 10^6/uL (3.85-5.65); Red Cell Distribution Width 14.9 % (12.1-15.1); White Blood Count 6.86 10^3/uL (3.29-11.43)
[2024-05-03 20:00] VITALS: PULSE 85; O2SAT 98
[2024-05-03 20:13] LABS: Alanine Aminotransferase 28 U/L (0-41); Albumin Level 3.3 g/dL (3.5-5.2); Alkaline Phosphatase 156 U/L (40-130); Aspartate Amino Transferase 30 U/L (0-40); Blood Urea Nitrogen 12 mg/dL (8-23); C Reactive Protein 33.1 mg/L (0.0-4.9); Calcium 8.7 mg/dL (8.5-10.5); Carbon Dioxide 23 mmol/L (22-29); Chloride 102 mmol/L (98-107); Creatinine Clr Calc Pharmacy 122.7846; Globulin 3.6 g/dL (1.3-4.6); Glomerular Filtration Rate 133.6 mL/min (90-130); Glucose 106 mg/dL (65-115); Lactic Sepsis W/Reflex 1.3 mmol/L (0.5-2.2); Osmolality Calculated 284 mOsm/kg (285-295); Sodium 137 mmol/L (136-145); Total Bilirubin 0.7 mg/dL (0.15-1.2); Total Protein 6.9 g/dL (6.6-8.7)
[2024-05-03 20:15] LABS: Erythrocyte Sedimentation Rate 24 mm/hr (0-10)
[2024-05-03 20:21] LABS: Anion Gap 15.8 (5-19); Potassium 3.8 mmol/L (3.5-5.1)
[2024-05-03 20:41] LABS: Influenza A NEGATIVE (Negative); Influenza B NEGATIVE (Negative); Respiratory Syncytial Virus Ce NEGATIVE (Negative); SARS-CoV-2 PCR NEGATIVE (Negative)
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
[2024-05-03 20:57] VITALS: BP 122/66; PULSE 82; RESP 16; TEMP 36.7; O2SAT 95
[2024-05-03 21:28] LABS: Bilirubin Urine Negative (Negative); Blood Urine 1+ (Negative); Glucose Urine UA Negative (Normal); Ketones Urine 3+ (Negative); Leukocyte Esterase Urine Negative (Negative); Nitrate Urine Negative (Negative); Protein Urine 1+ (Negative); Specific Gravity, Urine 1.024 (1.005-1.030); Urine Appearance Clear (CLEAR); Urine Color Dark Yellow (Yellow); pH Urine 5.5 (5-7)
[2024-05-03 21:47] LABS: Bacteria Urine TRACE /hpf; Hyaline Casts Urine 0-4 /lpf; Mucus Urine 1+ /hpf; RBC Urine 0-4 /hpf (0-2); Squamous Epithelial Cell Urine 0-4 /hpf (0-5)
[2024-05-03 22:09] LABS: ABG PCO2 41.1 mmHg (35-45); ABG PH Result 7.41 (7.35-7.45); Alveolar-Arterial Oxygen Gradi 5.6 mmHg (5-10); Arterial Blood Gas Hematocrit 43.9 % (42-52); Base Excess ABG 1.2 mmol/L (-2.0-2.0); Blood Gas Allen Test Pos; Blood Gas Operator Identificat gerca; Blood Gas Sample Site Radial, left; Blood Gas Sample Type Arterial; Carboxyhemoglobin 1.6 %THgb (0.4-20.1); HGB O2 Sat 88.1 % (95-100); Ionized Calcium Level - ABG 1.2 mmol/L (1.1-1.4); Methemoglobin 0.8 % (0.4-1.5); Oxygen Saturation ABG 90.2; PO2 ABG 56.2 mmHg (80.0-100.0); Potassium Level - ABG 3.7 mmol/L (3.5-5.0); Total Hemoglobin 14.3 g/dL (14-18)
[2024-05-03 22:10] LABS: Oxygen Device ROOM AIR; PO2 FiO2 Ratio Arterial Blood 267
[2024-05-03 22:20] LABS: Alcohol Level < 10 mg/dL (0-10)
[2024-05-03 22:28] LABS: Amphetamines Screen Urine Negative (Negative); Barbiturates Screen Urine Negative (Negative); Benzodiazepines Screen Urine Negative (Negative); Cocaine Screen Urine Negative (Negative); Opiate Screen Urine Negative (Negative); PCP Screen Urine Negative (Negative); THC Screen Urine Negative (Negative)
[2024-05-03] MEDS: LORazepam 2 mg/mL INJ 1 mL 1 MG IVP (22:34)
[2024-05-03 23:00] VITALS: BP 126/77; PULSE 90; O2SAT 94
[2024-05-03 23:17] VITALS: BP 127/73; PULSE 90; O2SAT 90
== END 2024-05-03 23:19 | disposition home or self-care (01) ==
PROVIDERS: Emergency Provider Emergency Medicine; PCP Family Medicine
DX: R41.82 Altered mental status, unspecified (principal); Z11.52 Encounter for screening for COVID-19; Z79.01 Long term (current) use of anticoagulants; F17.210 Nicotine dependence, cigarettes, uncomplicated; J44.9 Chronic obstructive pulmonary disease, unspecified; I11.0 Hypertensive heart disease with heart failure; I50.9 Heart failure, unspecified
CPT/HCPCS: 36415; 36600; 51702; 70450; 71045; 80051; 80053; 80306; 80307; 81001; 82330; 82805; 83605; 85025; 85651; 86140; 87040; 87637; 96374; 99285; J2060

== ENCOUNTER → 2024-06-06 07:52 | Outpatient (BNVA) | payer OTHER, SELFPAY | PROVIDERS: PCP Family Medicine; Visit Provider Thoracic Surgery (Cardiothoracic Vascular Surgery) | DX: I89.0 Lymphedema, not elsewhere classified (principal) | CPT/HCPCS: 99203 ==

== ENCOUNTER → 2024-07-06 13:08 | Outpatient (BNVA) | payer OTHER, SELFPAY | PROVIDERS: PCP Family Medicine; Visit Provider Thoracic Surgery (Cardiothoracic Vascular Surgery) | DX: I96 Gangrene, not elsewhere classified (principal); I89.0 Lymphedema, not elsewhere classified; L97.811 Non-pressure chronic ulcer of other part of right lower leg limited to breakdown of skin; L97.821 Non-pressure chronic ulcer of other part of left lower leg limited to breakdown of skin | CPT/HCPCS: 97597; 97598; A6197; A6253 ==

== ENCOUNTER → 2024-07-18 13:23 | Outpatient (BNVA) | payer OTHER, SELFPAY | PROVIDERS: PCP Family Medicine; Visit Provider Thoracic Surgery (Cardiothoracic Vascular Surgery) | DX: I96 Gangrene, not elsewhere classified (principal); I89.0 Lymphedema, not elsewhere classified; L97.821 Non-pressure chronic ulcer of other part of left lower leg limited to breakdown of skin; L97.811 Non-pressure chronic ulcer of other part of right lower leg limited to breakdown of skin | CPT/HCPCS: 29581; 97597; 97598; A6197; A6253 ==

== ENCOUNTER → 2024-07-25 13:40 | Outpatient (BNVA) | payer OTHER, SELFPAY | PROVIDERS: PCP Family Medicine; Visit Provider Thoracic Surgery (Cardiothoracic Vascular Surgery) | DX: I96 Gangrene, not elsewhere classified (principal); I89.0 Lymphedema, not elsewhere classified; L97.821 Non-pressure chronic ulcer of other part of left lower leg limited to breakdown of skin; L97.811 Non-pressure chronic ulcer of other part of right lower leg limited to breakdown of skin | CPT/HCPCS: 97597; 97598; A6197 ==

== ENCOUNTER → 2024-08-08 13:32 | Outpatient (BNVA) | payer OTHER, SELFPAY | PROVIDERS: PCP Family Medicine; Visit Provider Thoracic Surgery (Cardiothoracic Vascular Surgery) | DX: I89.0 Lymphedema, not elsewhere classified (principal); L97.821 Non-pressure chronic ulcer of other part of left lower leg limited to breakdown of skin; L97.811 Non-pressure chronic ulcer of other part of right lower leg limited to breakdown of skin | CPT/HCPCS: 97597; 97598; A6197; A6253 ==

== ENCOUNTER → 2024-09-05 13:31 | Outpatient (BNVA) | payer OTHER, SELFPAY | PROVIDERS: PCP Family Medicine; Visit Provider Thoracic Surgery (Cardiothoracic Vascular Surgery) | DX: I96 Gangrene, not elsewhere classified (principal); I89.0 Lymphedema, not elsewhere classified; L97.811 Non-pressure chronic ulcer of other part of right lower leg limited to breakdown of skin; L97.821 Non-pressure chronic ulcer of other part of left lower leg limited to breakdown of skin | CPT/HCPCS: 97597; 97598; A6197; A6253 ==

== ENCOUNTER 2024-09-15 14:38 | Inpatient (IN) | payer OTHER, MEDICARE, SELFPAY ==
[2024-09-15] VITALS (11 sets, daily range): BP systolic 116–151; BP diastolic 70–89; PULSE 76–94; RESP 16–25; TEMP 36.6–36.7; O2SAT 75–98; BMI 38.6; BMI 37.5
--- OUTSIDE RECORDS SUMMARY | 2024-09-15 14:53 | XMS_ITS | Clinical Summary ---
Author Organization [facility] Address [address] [place] [address] Care Team Providers Care Customer Technical Services Manager Name Role Phone Alok Griffith MD Primary Care Provider [phone] Allergies Active Allergy Reactions Criticality Noted Date Comments Zinc Nausea and Vomiting Low 01/29/2021 Topical if fine, just not oral Medications fluticasone propion-salmete roL (ADVAIR DISKUS,WIXELA INHUB) 250-50 mcg/dose disk inhaler INHALE 1 INHALATION BY ORAL INHALATION TWICE A DAY FOR BREATHING (OPEN DISKUS; CLICK ONLY ONCE; MAY INHALE TWICE TO COMPLETE DOSE; CLOSE WHEN FINISHED) RINSE MOUTH AND SPIT AFTER EACH USE. 1 Active albuterol sulfate 90 mcg/Actuation inhaler INHALE 2 PUFFS BY ORAL INHALATION FOUR TIMES A DAY NEEDED FOR BREATHING. SHAKE WELL. RINSE MOUTHPIECE FREQUENTLY TO PREVENT CLOGGING. 1 Active morphine (MS IR) 30 mg tablet Take 30 mg by mouth every 6 hours as needed for Pain. Active oxyCODONE (OxyCONTIN) 15 mg Controlled Release 12 hour crush resistant tablet Take 15 mg by mouth every 6 hours as needed for Pain, Severe. Active oxygen home deliveryIndicat ions:Chronic obstructive pulmonary disease, unspecified COPD type (CMS/HCC) Concentrator with portability at 2LPM via nasal cannula. Also, oxygen at a setting of 2 on a conserving device Length of need: 6 months or greater 1 Each 1 Active pulse oximetry - AMB non-monitoredIn dications:Chron ic obstructive pulmonary disease, unspecified COPD type (CMS/HCC) Home continuous pulse oximeter use spot checks Length of Need: 1 month Your baseline Pulse Oximeter measurement is 94% on 2 liters/min by nasal cannula. If your Pulse Oximeter reading goes below 90% call [facility] at [phone] or if you are in distress, please call 911 immediately. 1 Each 1 Active nebulizer Length of need 99 months Nebulizer with compressor, Kit: Disposable Nebulizer Kit, 2 per month, filters , areosol mask: Yes. Name of Medication DuoNeb 1 Each 1 Active DULoxetine (CYMBALTA) 60 mg Capsule, Delayed Release(E.C.) 1 capsule DAILY (route: oral) 4 Active Levothyroxine 100 mcg Capsule 1 capsule DAILY (route: oral) 4 Active nortriptyline (PAMELOR) 10 mg capsule 1 capsule DIRECTED (route: oral) 4 Active pregabalin (LYRICA) 200 mg Capsule 1 capsule 3 TIMES DAILY (route: oral) 4 Active furosemide (LASIX) 80 mg tablet 1 tablet 2 TIMES DAILY (route: oral) 4 Active potassium chloride (K-TAB) 20 mEq Extended Release tablet 0.5 tablet DAILY (route: oral) 4 Active methocarbamoL (ROBAXIN) 750 mg tablet 1 tablet 4 TIMES DAILY (route: oral) 4 Active empagliflozin (Jardiance) 25 mg tablet 1 tablet DAILY (route: oral) 4 Active apixaban (Eliquis) 5 mg tablet 1 tablet 2 TIMES DAILY (route: oral) 4 Active buprenorphine-n alOXone (SUBOXONE) 2-0.5 mg Tablet, Sublingual 3 tablet 4 TIMES DAILY (route: sublingual) 4 Active ketoconazole (NIZORAL) 2 % Cream Apply to affected areas three times weekly with dressing changes 60 Gram 3 4 Active wound supplies Length of Need: 1 year(s), # of Wounds:7 Wound debrided/document ed:no Location:bilatera l legs . Pt on home health for wound/burn care:no Pt dressing demonstration done:yes Freq of change:Every 3 days Item: Silver Alginate 4x4.75 (in/in) 3 per dressing change, Superabsorber 5x7 in 2 per dressing change, Kerlex 4.1 in (1 roll per leg at each dressing change), Coban 2. Change all 3 products times per week. Refills: 10 1 Each 4 Active Active Problems Problem Noted Date Diagnosed Date Morbid obesity with BMI of 45.0-49.9, adult 04/2013 Chronic back pain 08/28/2013 COPD (chronic obstructive pulmonary disease) Upper GI bleed 08/27/2013 Encounters Date Type Department Care Team Description 09/05/2024 External Device Data [facility]STRACTION Provider, Abstract 08/22/2024 External Device Data [facility] Provider, Abstract 08/01/2024 External Device Data [facility] Provider, Abstract 07/11/2024 External Device Data [facility] Provider, Abstract from Last 3 Months Family History Medical History Relation Name Comments Unknown Father Unknown Mother Relation Name Status Comments Father Mother Social History Tobacco Use Types Packs/Day Years Used Date Smoking Tobacco: Every Day Cigarettes Alcohol Use Standard Drinks/Week Comments Not Currently 0 (1 standard drink = 0.6 oz pur e alcohol) Sex and Gender Information Value Date Recorded Sex Assigned at Not on file Legal Sex Male 5:54 AM PUMP SERVICER HELPER Gender Identity Not on file Sexual Orientation Not on file Last Filed Vital Signs Vital Sign Reading Time Taken Comments Blood Pressure 130/99 01/29/2021 5:45 PM PUMP SERVICER HELPER Pulse 83 01/29/2021 5:00 PM PUMP SERVICER HELPER Temperature 36.3 C (97.3 F) 01/29/2021 5:45 PM PUMP SERVICER HELPER Respiratory Rate 18 01/29/2021 5:45 PM PUMP SERVICER HELPER Oxygen Saturation 93% 01/29/2021 5:45 PM PUMP SERVICER HELPER Inhaled Oxygen Concentration - - Weight 165.9 kg (365 lb 11.2 oz) 01/29/2021 2:00 PM PUMP SERVICER HELPER Height 180.3 cm (5' 11 ) 01/29/2021 2:00 PM PUMP SERVICER HELPER Body Mass Index 51 01/29/2021 2:00 PM PUMP SERVICER HELPER Plan of Treatment Health Maintenance Due Date Last Done Comments Pre-Diabetes and Diabetes Screening 1955 PNEUMOCOCCAL VACCINE 50+ YEA RS (1 of 2 - PCV) 1974 FIT-DNA Q 3 years 02/27/2000 FIT/FOBT Q 1 year 02/27/2000 Flex Sig/CT Colonography Q 5 years 02/27/2000 ZOSTER VACCINE (1 of 2) 2005 RSV VACCINE (60+ or ) (1 - Risk 60-74 years 1-dose series) 2015 COLORECTAL SCREENING 07/08/2018 07/09/2015 Colorectal Cancer Screening 07/08/2018 Abdominal Aortic Aneurysm (AAA) Screening 02/27/2020 DTAP/TDAP/TD VACCINES (2 - Td or Tdap) 06/23/2022, 10/21/1999 INFLUENZA VACCINE (#1) [address] [place] [id number] [facility] Address: [address] [address] [place] [address] [facility] OFFICE OF [facility] Care Teams Customer Technical Services Manager Relationship Specialty Start Date End Date Alok Griffith MD [address] [place] [id number] PCP - General Internal Medicine 07/02/15
--- OUTSIDE RECORDS SUMMARY | 2024-09-15 14:53 | XMS_ITS | Clinical Summary ---
Author Organization [facility] Address [address] [address] Phone Care Team Providers Care Polo Coach Name Role Phone Alok Griffith MD Primary Care Provider Allergies No known active allergies Medications lisinopril (PRINIVIL) 10 mg tablet Take 10 mg by mouth daily. Active furosemide (LASIX) 20 mg tablet Take 20 mg by mouth daily. Active IPRATROPIUM/ALBU TEROL SULFATE (COMBIVENT INHALATION) Take by inhalation. Active multivitamin (DAILY-ERNESTO) tablet Take 1 Tab by mouth daily. Active morphine (MS IR) 30 mg tablet Take 3 Tabs by mouth 3 times daily. 65 Tab 0 08/31/2013 Active Active Problems Problem Noted Date Diagnosed Date Morbid obesity with BMI of 45.0-49.9, adult 120 04/2013 COPD (chronic obstructive pulmonary disease) Chronic back pain 08/28/2013 Upper GI bleed 08/27/2013 Family History Medical History Relation Name Comments Unknown Father Unknown Mother Relation Name Status Comments Father Mother Social History Tobacco Use Types Packs/Day Years Used Date Smoking Tobacco: Every Day Cigarettes Tobacco Cessation:Ready to Q uit: No; Counseling Given: Yes Alcohol Use Standard Drinks/Week Comments Yes 0 (1 standard drink = 0.6 oz pur e alcohol) occasionally Sex and Gender Information Value Date Recorded Sex Assigned at Not on file Legal Sex Male 11:34 AM CDT Gender Identity Not on file Sexual Orientation Not on file Occupation Industry Job Start Date Job End Date Not on file Not on file Not on file Not on file Last Filed Vital Signs Vital Sign Reading Time Taken Comments Blood Pressure 136/80 06/01/2019 2:52 PM CDT Pulse 92 06/01/2019 2:52 PM CDT Temperature 37.2 C (98.9 F) 06/01/2019 2:52 PM CDT Respiratory Rate 19 06/01/2019 2:52 PM CDT Oxygen Saturation 96% 06/01/2019 2:52 PM CDT Inhaled Oxygen Concentration - - Weight 156.5 kg (345 lb) 06/01/2019 2:52 PM CDT Height 180.3 cm (5' 11 ) 06/01/2019 2:52 PM CDT Body Mass Index 48.12 06/01/2019 2:52 PM CDT Plan of Treatment Health Maintenance Due Date Last Done Comments Pre-Diabetes and Diabetes Screening 1955 DTAP/TDAP/TD VACCINES (1 - Tdap) 1974 PNEUMOCOCCAL VACCINE 50+ YEARS (1 of 2 - PCV) 02/26/19 74 FIT-DNA Q 3 years 02/27/2000 FIT/FOBT Q 1 year 02/27/2000 Flex Sig/CT Colonography Q 5 years 02/27/2000 ZOSTER VACCINE (1 of 2) 2005 RSV VACCINE (60+ or ) (1 - Risk 60-74 years 1-dose series) 2015 COLORECTAL SCREENING 07/08/2018 07/09/2015 Colorectal Cancer Screening 07/08/2018 INFLUENZA VACCINE (#1) 2024 Insurance MEDICARE PART A HOSPITAL ONLY [facility] Advance Directives For more information, please contact: [phone] * Full Code (Latest Code Status on File) Date Activated Date Inactivated Comments 07/09/2015 10:26 AM 07/09/2015 2:30 PM * Full Code Date Activated Date Inactivated Comments 08/27/2013 4:43 PM 08/31/2013 4:40 PM Care Teams Polo Coach Relationship Specialty Start Date End Date Alok Griffith MD [address] [place] [id number] PCP - General Internal Medicine 07/02/15
--- NOTE | 2024-09-15 15:06 | ECG_ITS ---
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 Measurements Intervals [place] Rate: 91 P: 1 [place]: 205 QRS: -2 QRSD: 107 T: 92 QT: 346 QTc: 427 Interpretive Statements SINUS RHYTHM WITH OCCASIONAL ECTOPIC PREMATURE COMPLEXES LOW QRS VOLTAGE IN PRECORDIAL LEADS [QRS DEFLECTION < 1.0 mV IN CHEST LEADS] ST DEVIATION AND MODERATE T-WAVE ABNORMALITY, CONSIDER ANTEROLATERAL ISCHEMIA [-0.1+ mV T-WAVE IN V3-V6] Compared to ECG 06/14/2022 19:09:59 Low QRS voltage now present T-wave abnormality now present Possible ischemia now present First degree AV block no longer present Incomplete right bundle-branch block no longer present Electronically Signed On 09-15-2024 15:07:50 CDT by Minna Welch M.D. [id number]
--- NOTE | 2024-09-15 15:08 | PC.NURSE ---
O2 rechecked after being in WR on 4L NC, improved to 92%
--- NOTE | 2024-09-15 15:46 | XRR_ITS ---
PROCEDURE INFORMATION: Exam: XR Chest Exam date and time: 09/15/2024 4:07 PM Age: 69 years old Clinical indication: Shortness of breath; Additional info: Short of breath TECHNIQUE: Imaging protocol: Radiologic exam of the chest. Views: 1 view. COMPARISON: CR XR chest 1V portable [id number] 05/03/2024 7:48 PM FINDINGS: Lungs: Unremarkable. No consolidation. Pleural spaces: Unremarkable. No pleural effusion. No pneumothorax. Heart/Mediastinum: Unremarkable. No cardiomegaly. Bones/joints: Unremarkable. XR/XR chest 1V portable [id number] IMPRESSION: No acute findings.
[2024-09-15 16:01] LABS: Hematocrit 44.1 % (37-53); Hemoglobin 13.80 g/dL (11.27-16.99); Mean Corpuscular HGB Conc 31.3 g/dL (30-55); Mean Corpuscular Hemoglobin 30.1 pg (27-33); Mean Corpuscular Volume 96.1 fl (82-101); Nucleated Red Blood Cells % 0 %; Platelet Count 274 10^3/cmm (157-399); Red Blood Count 4.59 10^6/uL (3.85-5.65); White Blood Count 9.36 10^3/uL (3.29-11.43)
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
[2024-09-15 16:18] LABS: Lactic Sepsis W/Reflex 1.3 mmol/L (0.5-2.2)
[2024-09-15 16:28] LABS: Alanine Aminotransferase 63 U/L (0-41); Albumin Level 3.0 g/dL (3.5-5.2); Alkaline Phosphatase 647 U/L (40-130); Anion Gap 9.3 (5-19); Aspartate Amino Transferase 42 U/L (0-40); Blood Urea Nitrogen 7 mg/dL (8-23); Calcium 8.9 mg/dL (8.5-10.5); Carbon Dioxide 34 mmol/L (22-29); Chloride 98 mmol/L (98-107); Creatinine Clr Calc Pharmacy 117.6406; Globulin 4.1 g/dL (1.3-4.6); Glucose 109 mg/dL (65-115); Magnesium 1.9 mg/dL (1.7-2.3); NT Pro B Type Natriuretic Pept 5467 pg/mL (0-125); Osmolality Calculated 285 mOsm/kg (285-295); Potassium 3.3 mmol/L (3.5-5.1); Sodium 138 mmol/L (136-145); Thyroid Stimulating Hormone 2.55 uIU/mL (0.27-4.20); Total Protein 7.1 g/dL (6.6-8.7)
[2024-09-15] MEDS: doxycycline 100 MG in sodium chloride 0.9% (plus) 100 ML IV (16:30)
[2024-09-15] MEDS: cefTRIAXone 2,000 mg SDV 2000 MG IVP (16:30)
[2024-09-15 16:47] LABS: Respiratory Syncytial Virus Ce NEGATIVE (Negative); SARS-CoV-2 PCR NEGATIVE (Negative)
[2024-09-15] MEDS: methylPREDNISolone sod succ 125 mg/2 mL INJ 80 MG IVP (16:49)
[2024-09-15] MEDS: FUROsemide 10 mg/mL SDV 10mL 80 MG IVP (16:49)
[2024-09-15 16:50] LABS: Troponin(5th) Baseline 30 ng/L (0-15)
[2024-09-15] MEDS: oxyCODONE 5 mg IR Tab/Cap PO (16:52)
--- NOTE | 2024-09-15 17:14 | PC.NURSE ---
pt refusing assistance from nurse to stand and use commode. pt requesting to do it himself.
[2024-09-15 17:56] LABS: Troponin 5 2HR 30.12 ng/L (0-15); Troponin 5 2HR Delta 0.12 ABS# (0-10)
--- NOTE | 2024-09-15 18:00 | ECG_ITS ---
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 Measurements Intervals [place] Rate: 93 P: 46 IA: 199 QRS: 69 QRSD: 114 T: -14 QT: 378 QTc: 471 Interpretive Statements SINUS RHYTHM WITH OCCASIONAL SUPRAVENTRICULAR PREMATURE COMPLEXES INCOMPLETE RIGHT BUNDLE BRANCH BLOCK [90+ ms QRS DURATION, TERMINAL R IN V1/V2, 40+ ms S IN I/aVL/V4/V5/V6] MODERATE T-WAVE ABNORMALITY, CONSIDER ANTERIOR ISCHEMIA [-0.1+ mV T-WAVE IN V3/V4] Compared to ECG 09/15/2024 15:06:07 Incomplete right bundle-branch block now present T-wave abnormality still present Possible ischemia still present Electronically Signed On 09-20-2024 16:53:16 CDT by Minna Welch M.D. [id number] [id number]
[2024-09-15 18:07] LABS: Procalcitonin 0.07 ng/mL (0-0.5)
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
[2024-09-15 20:46] LABS: ABG PCO2 80.3 mmHg (35-45); ABG PH Result 7.27 (7.35-7.45); Arterial Blood Gas Hematocrit 48.2 % (42-52); Blood Gas Allen Test Pos; Blood Gas LPM 6.0 %; Blood Gas Sample Site Radial, right; Blood Gas Sample Type Arterial; HCO3 ABG 37.1 mmol/L (22-26); PO2 ABG 59.2 mmHg (80.0-100.0)
[2024-09-15 23:23] LABS: ABG PH Result 7.32 (7.35-7.45); Alveolar-Arterial Oxygen Gradi 20.2 mmHg (5-10); Arterial Blood Gas Hematocrit 43.7 % (42-52); Blood Gas Sample Site Brachial, right; Blood Gas Sample Type Arterial; Carboxyhemoglobin 2.6 %THgb (0.4-20.1); Glucose Level-ABG 130.0 mg/dL (70-115); HCO3 ABG 38.1 mmol/L (22-26); Ionized Calcium Level - ABG 1.2 mmol/L (1.1-1.4); Methemoglobin 0.9 % (0.4-1.5); Oxygen Saturation ABG 95.2; PO2 ABG 76.8 mmHg (80.0-100.0); PO2 FiO2 Ratio Arterial Blood 170; Potassium Level - ABG 3.4 mmol/L (3.5-5.0); Sodium Level - ABG 143.0 mmol/L (131-143)
[2024-09-15 23:24] LABS: ABG PCO2 73.5 mmHg (35-45)
[2024-09-16] VITALS (17 sets, daily range): BP systolic 108–131; BP diastolic 69–84; PULSE 71–98; RESP 16–22; TEMP 36.4–36.8; O2SAT 88–98
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
[2024-09-16 05:26] LABS: Estmated Average Glucose 117; Hemoglobin A1C 5.7 % (4.0-6.0)
[2024-09-16 05:34] LABS: Anion Gap 11.4 (5-19); Blood Urea Nitrogen 7 mg/dL (8-23); Calcium 8.6 mg/dL (8.5-10.5); Carbon Dioxide 37 mmol/L (22-29); Chloride 96 mmol/L (98-107); Creatinine Clr Calc Pharmacy 115.8513; Glucose 118 mg/dL (65-115); Osmolality Calculated 291 mOsm/kg (285-295); Potassium 3.4 mmol/L (3.5-5.1); Sodium 141 mmol/L (136-145)
[2024-09-16] MEDS: FUROsemide 10 mg/mL SDV 10mL 60 MG IVP ×2 (08:17→17:53)
[2024-09-16] MEDS: morphine ER (12 HR) 30 mg tablet PO ×2 (08:18→21:06)
--- NOTE | 2024-09-16 09:36 | PC.PHAR ---
Pt is [facility]. Pt did verify his medications in the room.
--- NOTE | 2024-09-16 12:22 | PC.CHAP ---
Pastoral Care Encounter/Spiritual Assessment Type of Contact [] Declined well point pumping supervisor visit [] Patient/Family/Request visit [] Outpatient visit [] Follow-up visit [] Physician referral [] Code/Alert [x] Routine visit [] Staff referral [] Actively dying [x] Patient sleeping [] Family support [] [] Out of room [] Palliative care [] [] Receiving care in room [] Pre-surgical visit [] Trauma [] Long length of stay [] ICU visit [] Other: Relational/Emotional Strength [] Patient feels connected with others/family/visitors/staff [] Distress [] Loneliness/isolation [] Abandonment Spirituality of Patient [] Person of Aster [] Attends Anabaptism of their Aster [] Believes in Prayer [] Reads Bible or Mosque materials [] There are Spiritual issues to be addressed Time Study Analyst Interventions [] Prayer [] Active listening [] Non-anxious presence [] Spiritual/emotional support [] Crisis/trauma care [] Spiritual counseling [] Bereavement support [] Provided bereavement packet [] Provided Bible/devotional materials [] Provided toy/stuffed animal, coloring book to patient or family member [] Provided Communion [] Anointing/Rowe [] Salvation [] Completed spiritual assessment [] Other: Impact on Illness or Injury [] Angry [] Fearful [] Anxious [] Often cries [] Exhaustion [] Unable to work [] Unable to attend mandaeism [] Unable to walk/stand [] Unable to read [] Unable to drive [] Unable to eat/drink [] Unable to sleep [] Unable to be with family [] Patient intubated [] Other: Summary Time spent with patient
--- NOTE | 2024-09-16 16:39 | P.PN_ITS ---
Subjective 2 Subjective: 69-year-old male admitted for diuresis and oxygen therapy for acute hypoxemic respiratory therapy then developed acute hypercarbic respiratory failure last evening. This was not expected because the patient was adamant that he has saturations of 92 to 96% at home on room air despite his long history of smoking. Patient had respiratory protocol ordered and he was on 6 L nasal cannula O2 and developed pH of 7.37 and PCO2 of 80. He was started on BiPAP. This morning and this afternoon he is alert. Patient states he is breathing a lot better. He is adamant that his oxygen was tested with 3 m at home and runs 93 to 94% without oxygen at home Vitals/I&O/Wt Last Vital Signs Temp 97.8 F 09/16/24 15:56 Pulse 80 09/16/24 15:56 Resp 19 H 09/16/24 15:56 BP 113/78 09/16/24 15:56 Pulse Ox 96 09/16/24 15:56 O2 Del Method Nasal Cannula 09/16/24 15:56 O2 Flow Rate 5 09/16/24 13:23 FiO2 40 09/16/24 02:40 09/16/24 09/16/24 09/16/24 06:59 14:59 22:59 Intake Total 840 / 840 Balance 840 / 840 Weight last 48 hrs Weight 122.016 kg Weight 122.016 kg Weight 125.645 kg Physical Exam 2 Narrative: General well-developed well-nourished male mildly tachypneic. Patient is sitting in a chair but legs are down but in a's bandages CV regular rate and rhythm Lungs prolonged x-ray phase with moderate air movement he has crackles in both bases Calves 2+ bilateral pretibial edema with Ari dressings in place Skin warm and dry Mood and affect appropriate patient is cooperative Data 09/15/24 15:45 09/16/24 04:59 Micro: Microbiology 09/15/24 15:59 Blood Culture - Preliminary Blood NEGATIVE TO DATE 09/15/24 15:45 Blood Culture - Preliminary Blood NEGATIVE TO DATE A&P Assessment and plan 1. Acute on chronic respiratory failure with hypoxia and hypercapnia: Patient admits to recent diagnosis of sleep apnea but has not been treating it despite having the CPAP machine at home. Additionally he shows signs of diastolic congestive heart failure. We discussed need for leg elevation, BiPAP or CPAP and then diuretics concomitantly to diurese 2. Acute on chronic diastolic (congestive) heart failure: Continue to treat with furosemide 60 mg IV twice a day and potassium chloride replacement. Elevate legs. Patient was counseled regarding need to treat for sleep apnea. He has sleep apnea CPAP machine at home for the last 2 months but has not been using 3. Abnormal transaminases: Mildly elevated LFTs likely due to congestive heart failure. Some labs were ordered by the ER PA and are pending but the hep CV is negative 4. Acute exacerbation of chronic obstructive pulmonary disease (COPD): Start Decadron and nebulizers 5. Tobacco abuse disorder: Start nicotine patch. Patient was counseled regarding need to stop smoking. He is open to the idea PDMP PDMP Reviewed: Not Reviewed Attestations 2 Medical Necessity Statement*: Patient require additional 2 midnights in hospital for stabilization of his acute respiratory failure and for diuresis Coding Level of Care Code 94622 Diagnoses Acute on chronic respiratory failure with hypoxia and hypercapnia J96.21; J96.22 Acute on chronic diastolic (congestive) heart failure I50.33 Abnormal transaminases R74.8 Acute exacerbation of chronic obstructive pulmonary disease (COPD) J44.1 Tobacco abuse disorder Z72.0 Time Spent (min) 40
[2024-09-17] VITALS (12 sets, daily range): BP systolic 117–150; BP diastolic 70–83; PULSE 70–82; RESP 17–19; TEMP 36.4–36.9; O2SAT 90–97
[2024-09-17 05:25] LABS: Anion Gap 11.4 (5-19); Blood Urea Nitrogen 14 mg/dL (8-23); Calcium 9.1 mg/dL (8.5-10.5); Carbon Dioxide 39 mmol/L (22-29); Chloride 94 mmol/L (98-107); Creatinine Clr Calc Pharmacy 115.8513; Glucose 87 mg/dL (65-115); Osmolality Calculated 292 mOsm/kg (285-295); Potassium 3.4 mmol/L (3.5-5.1); Sodium 141 mmol/L (136-145)
[2024-09-17] MEDS: morphine ER (12 HR) 30 mg tablet PO ×2 (08:36→20:45)
[2024-09-17] MEDS: FUROsemide 10 mg/mL SDV 10mL 60 MG IVP ×2 (08:37→17:08)
--- NOTE | 2024-09-17 19:19 | P.PN_ITS ---
Subjective 2 Subjective: 69-year-old male admitted for diuresis and oxygen therapy for acute hypoxemic respiratory therapy then developed acute hypercarbic respiratory failure last evening. This was not expected because the patient was adamant that he has saturations of 92 to 96% at home on room air despite his long history of smoking. Patient sitting with his legs down not on oxygen. He states he has been peeing in the toilet 6 times today and admits that is not being measured. He looks like he is not getting daily weights either He states his breathing is much better and he hopes to go home. He states he did not tolerate the fullface mask and thinks the nasal CPAP mask would do better but admits that he did not use it much at home Vitals/I&O/Wt Last Vital Signs Temp 97.7 F 09/17/24 16:00 Pulse 72 09/17/24 16:00 Resp 18 09/17/24 16:00 BP 138/70 09/17/24 16:00 Pulse Ox 94 09/17/24 16:00 O2 Del Method Nasal Cannula 09/17/24 16:00 O2 Flow Rate 3 09/17/24 13:32 FiO2 40 09/16/24 02:40 09/17/24 09/17/24 09/17/24 06:59 14:59 22:59 Intake Total 840 / 840 480 / 1320 Output Total 800 / 800 Balance -800 / 760 840 / 840 480 / 1320 Weight last 48 hrs Weight 122.016 kg Weight 122.016 kg Weight 122.016 kg Physical Exam 2 Narrative: General well-developed well-nourished male mildly tachypneic. Patient is sitting in a chair but legs are down but in a's bandages CV regular rate and rhythm Lungs prolonged expiratory phase with moderate air movement he has mild crackles in both bases Calves 2+ bilateral pretibial edema with Ari dressings in place Skin warm and dry Mood and affect appropriate patient is cooperative Data 09/15/24 15:45 09/17/24 04:53 Micro: Microbiology 09/15/24 15:59 Blood Culture - Preliminary Blood NEGATIVE TO DATE 09/15/24 15:45 Blood Culture - Preliminary Blood NEGATIVE TO DATE A&P Assessment and plan 1. Acute on chronic respiratory failure with hypoxia and hypercapnia: Patient admits to recent diagnosis of sleep apnea but has not been treating it despite having the CPAP machine at home. Additionally he shows signs of diastolic congestive heart failure. We discussed need for leg elevation, BiPAP or CPAP and then diuretics concomitantly to diurese Patient has not been compliant with leg elevation CPAP/BiPAP or even oxygen. He is getting diuretics and is voiding. Nurses have not been measuring his output or his weight. I discussed the need for these measures with the patient and also with the charge nurse 2. Acute on chronic diastolic (congestive) heart failure: Continue to treat with furosemide 60 mg IV twice a day and potassium chloride replacement. Elevate legs. Patient was counseled regarding need to treat for sleep apnea. He has sleep apnea CPAP machine at home for the last 2 months but has not been using Looks like the patient will need home O2 3. Abnormal transaminases: Mildly elevated LFTs likely due to congestive heart failure. Some labs were ordered by the ER PA and are pending but the hep CV is negative 4. Acute exacerbation of chronic obstructive pulmonary disease (COPD): Start Decadron and nebulizers 5. Tobacco abuse disorder: Start nicotine patch. Patient was counseled regarding need to stop smoking. He is open to the idea PDMP PDMP Reviewed: Not Reviewed Attestations 2 Medical Necessity Statement*: Patient was observed in the hospital 1 more night wound care and home O2 planning for potential discharge in morning Coding Level of Care Code 26892 Diagnoses Acute on chronic respiratory failure with hypoxia and hypercapnia J96.21; J96.22 Acute on chronic diastolic (congestive) heart failure I50.33 Abnormal transaminases R74.8 Acute exacerbation of chronic obstructive pulmonary disease (COPD) J44.1 Tobacco abuse disorder Z72.0 Time Spent (min) 25
[2024-09-18] VITALS (11 sets, daily range): BP systolic 134–145; BP diastolic 78–86; PULSE 72–92; RESP 18–19; TEMP 36.4–36.5; O2SAT 85–98
[2024-09-18 04:32] LABS: Base Excess VBG 18.7 mmol/L (-3.0-3.0); Blood Gas Allen Test Pos; Blood Gas LPM 3.0 %; Blood Gas Operator Identificat gerca; Blood Gas Sample Type Venous; HCO3 VBG 47.0 mmol/L (24-28); PO2 VBG 30.3 mmHg (25-40); Venous Blood Gas Hematocrit 44.3 % (42-52); pH VBG 7.44 (7.32-7.42)
[2024-09-18 04:33] LABS: PCO2 VBG 68.7 mmHg (41-51)
[2024-09-18 04:35] LABS: Blood Gas Sample Site Umbilical cord
[2024-09-18 05:36] LABS: Alanine Aminotransferase 31 U/L (0-41); Albumin Level 2.9 g/dL (3.5-5.2); Alkaline Phosphatase 448 U/L (40-130); Anion Gap 8.6 (5-19); Aspartate Amino Transferase 15 U/L (0-40); Blood Urea Nitrogen 13 mg/dL (8-23); Calcium 9.2 mg/dL (8.5-10.5); Chloride 93 mmol/L (98-107); Creatinine Clr Calc Pharmacy 113.9728; Globulin 4.0 g/dL (1.3-4.6); Glucose 83 mg/dL (65-115); Magnesium 1.9 mg/dL (1.7-2.3); Osmolality Calculated 289 mOsm/kg (285-295); Potassium 4.6 mmol/L (3.5-5.1); Sodium 140 mmol/L (136-145); Total Protein 6.9 g/dL (6.6-8.7)
[2024-09-18 05:56] LABS: Carbon Dioxide 43 mmol/L (22-29)
[2024-09-18] MEDS: morphine ER (12 HR) 30 mg tablet PO (09:47)
--- NOTE | 2024-09-18 10:07 | PC.CHAP ---
Pastoral Care Encounter/Spiritual Assessment Type of Contact [] Declined licensed direct entry midwife visit [] Patient/Family/Request visit [] Outpatient visit [] Follow-up visit [] Physician referral [] Code/Alert [] Routine visit [] Staff referral [] Actively dying [x] Patient sleeping [] Family support [] [] Out of room [] Palliative care [] [] Receiving care in room [] Pre-surgical visit [] Trauma [] Long length of stay [] ICU visit [] Other: Relational/Emotional Strength [] Patient feels connected with others/family/visitors/staff [] Distress [] Loneliness/isolation [] Abandonment Spirituality of Patient [] Person of Aster [] Attends Zoroastrian of their Aster [] Believes in Prayer [] Reads Bible or Samaritan materials [] There are Spiritual issues to be addressed Assistant Business Manager Interventions [] Prayer [] Active listening [] Non-anxious presence [] Spiritual/emotional support [] Crisis/trauma care [] Spiritual counseling [] Bereavement support [] Provided bereavement packet [] Provided Bible/devotional materials [] Provided toy/stuffed animal, coloring book to patient or family member [] Provided Communion [] Anointing/[place] [] Salvation [] Completed spiritual assessment [] Other: Impact on Illness or Injury [] Angry [] Fearful [] Anxious [] Often cries [] Exhaustion [] Unable to work [] Unable to attend uatsdin [] Unable to walk/stand [] Unable to read [] Unable to drive [] Unable to eat/drink [] Unable to sleep [] Unable to be with family [] Patient intubated [] Other: Summary Time spent with patient
[2024-09-18 10:08] LABS: Hepatitis A Antibody IgM Non-Reactive (Nonreactive); Hepatitis B Surface Antigen Non-Reactive (Nonreactive)
--- NOTE | 2024-09-18 10:13 | PC.SOCIAL ---
IMM Updated Updated pt on IMM. No questions voiced. Provided pt a copy. Initialed, dated, & timed a copy & placed in chart.
--- NOTE | 2024-09-18 10:36 | PC.OT ---
OT treatment attempted at 10:30; patient reported he already completed ADLS independently this morning
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
--- NOTE | 2024-09-18 15:04 | PC.NURSE ---
Discussed in detail discharge with patient. Went over new medications, and all restrictions as well as follow up appointments. Patient verbalized understanding of all restrictions, medications and wound care for legs will be resumed. [facility] went [facility]
--- OUTSIDE RECORDS SUMMARY | 2024-09-18 19:00 | XMS_ITS | Clinical Summary ---
Author Organization Unknown Care Team Providers Care [employer] Name Role Phone KAILYN SMALL, ISAEL Unavailable Unavailable VISHAL BLANK, REDDY Unavailable Unavailable IRIS JUDGE, LUIZ Unavailable Unavailable Payers Payer Name Policy Type Policy Number Effective Date Expira tion Date [facility] - [facility] [id number] Problems Condition Name Condition Details Condition Category Status Onset Date Resolution Date Last Treatment Date Treating Clinician Comments LYMPHEDEMA, NOT ELSEWHERE CLASSIFIED Active 03-08 00:00: 00 EMPHYSEMA, UNSPECIFIED Active 03-08 00:00: 00 MULTIPLE SCLEROSIS Active 03-08 00:00: 00 HYPERTENSIVE HEART DISEASE WITH HEART FAILURE Active 03-08 00:00: 00 HEART FAILURE, UNSPECIFIED Active 03-08 00:00: 00 MORBID (SEVERE) OBESITY DUE TO EXCESS CALORIES Active 03-08 00:00: 00 BODY MASS INDEX [BMI] 60.0-69.9, ADULT Active 03-08 00:00: 00 CHRONIC PAIN SYNDROME Active 03-08 00:00: 00 HYPOTHYROIDI SM, UNSPECIFIED Active 03-08 00:00: 00 HYPERLIPIDEM IA, UNSPECIFIED Active 03-08 00:00: 00 OBSTRUCTIVE SLEEP APNEA (ADULT) (PEDIATRIC) Active 03-08 00:00: 00 NONRHEUMATIC AORTIC (VALVE) STENOSIS Active 03-08 00:00: 00 LATENT FINGERPRINT EXAMINER (CURRENT) USE OF ANTICOAGULAN TS Active 03-08 00:00: 00 LATENT FINGERPRINT EXAMINER (CURRENT) USE OF ORAL HYPOGLYCEMIC DRUGS Active 03-08 00:00: 00 Allergies, Adverse Reactions, Alerts Allergy Name Allergy Type Status Severity Reaction(s) Onset Date Inactive Date Treating Clinician Comments GABAPENTIN Propensity to adverse reactions Active 07-28 12:49: 36 ZINC Propensity to adverse reactions Active 07-27 14:03: 31 Medications Ordered Medication Name Filled Medication Name Start Date Stop Date Current Medication? Ordering Clinician Indication Dosage Frequency Signature (SIG) Comments Components B Complex-Vit gutierrez B12 tablet 07-27 00:00: 00 Yes [id number] 1 tablet DAILY 1 tablet DAILY (route: oral) Med Classific ation: Electroly te Balance-N utritiona l Products buprenorphi ne 2 mg-naloxone 0.5 mg sublingual tablet 07-27 00:00: 00 Yes [id number] 3 tablet 4 TIMES DAILY 3 tablet 4 TIMES DAILY (route: sublingual ) Med Classific ation: Chemical Dependenc y, Agents to Treat duloxetine 60 mg capsule,del ayed release 07-27 00:00: 00 Yes [id number] 1 capsule DAILY 1 capsule DAILY (route: oral) Med Classific ation: Central Nervous System Agents Eliquis 5 mg tablet 07-27 00:00: 00 Yes [id number] 1 tablet 2 TIMES DAILY 1 tablet 2 TIMES DAILY (route: oral) Med Classific ation: Hematolog ical Agents furosemide 80 mg tablet 07-27 00:00: 00 Yes [id number] 1 tablet 2 TIMES DAILY 1 tablet 2 TIMES DAILY (route: oral) Med Classific ation: Cardiovas cular Therapy Agents Jardiance 25 mg tablet 07-27 00:00: 00 Yes [id number] 1 tablet DAILY 1 tablet DAILY (route: oral) Med Classific ation: Endocrine levothyroxi ne 100 mcg capsule 07-27 00:00: 00 Yes [id number] 1 capsule DAILY 1 capsule DAILY (route: oral) Med Classific ation: Endocrine pregabalin 200 mg capsule 07-27 00:00: 00 Yes [id number] 1 capsule 3 TIMES DAILY 1 capsule 3 TIMES DAILY (route: oral) Med Classific ation: Central Nervous System Agents Vitamin D3 50 mcg (2,000 unit) capsule 07-27 00:00: 00 Yes [id number] 1 capsule DAILY 1 capsule DAILY (route: oral) Med Classific ation: Electroly te Balance-N utritiona l Products potassium chloride ER 20 mEq tablet,exte nded release 08-31 00:00: 00 Yes [id number] 0.5 tablet DAILY 0.5 tablet DAILY (route: oral) Med Classific ation: Electroly te Balance-N utritiona l Products melatonin 3 mg capsule 08-31 00:00: 00 Yes [id number] 2 capsule BEDTIME 2 capsule BEDTIME (route: oral) Med Classific ation: Central Nervous System Agents methocarbam ol 750 mg tablet 08-31 00:00: 00 03-23 10:04 :55.9 2 No [id number] 1 tablet 4 TIMES DAILY 1 tablet 4 TIMES DAILY (route: oral) Med Classific ation: Locomotor System nortriptyli ne 10 mg capsule 09-28 00:00: 00 Yes [id number] 1 capsule DIRECTED 1 capsule DIRECTED (route: oral) Med Classific ation: Central Nervous System Agents methocarbam ol 750 mg tablet 03-23 00:00: 00 Yes [id number] pain/muscle spasms 1 tablet 4 TIMES DAILY 1 tablet 4 TIMES DAILY (route: oral) Med Classific ation: Locomotor System penicillin V potassium 500 mg tablet 04-21 00:00: 00 05-02 23:59 :00 No [id number] 1 tablet DAILY 1 tablet DAILY (route: oral) Med Classific ation: Anti-Infe ctive Agents sulfamethox azole 800 mg-trimetho prim 160 mg tablet -14 00:00: 00 05-02 23:59 :00 No [id number] 1 tablet 2 TIMES DAILY 1 tablet 2 TIMES DAILY (route: oral) Med Classific ation: Anti-Infe ctive Agents amoxicillin 500 mg tablet 07-07 00:00: 00 07-17 23:59 :00 No [id number] 1 tablet 2 TIMES DAILY 1 tablet 2 TIMES DAILY (route: oral) Med Classific ation: Anti-Infe ctive Agents Vital Signs Vital Name Observation Time Observation Value Commen ts Temperature 2024-09-13 13:28:00.000 98.3 [degF] Temperature 2024-09-11 13:17:00.000 97.6 [degF] Temperature 2024-09-07 11:13:00.000 97.9 [degF] Temperature 2024-09-01 13:05:00.000 98 [degF] Temperature 2024-08-28 14:43:00.000 99.3 [degF] Temperature 2024-08-25 15:22:00.000 97.2 [degF] Temperature 2024-08-18 14:11:00.000 98 [degF] Temperature 2024-08-16 13:01:00.000 97.6 [degF] Temperature 2024-08-14 14:00:00.000 97.8 [degF] Temperature 2024-08-11 12:35:00.000 97.9 [degF] Temperature 2024-08-07 13:28:00.000 98.2 [degF] Temperature 2024-08-04 13:33:00.000 97.5 [degF] Temperature 2024-07-31 13:50:00.000 97.6 [degF] Temperature 2024-07-28 14:55:00.000 97.7 [degF] Temperature 2024-07-24 15:54:00.000 97.7 [degF] Pulse 2024-09-13 13:28:00.000 84 /min Pulse 2024-09-11 13:17:00.000 87 /min Pulse 2024-09-07 11:13:00.000 75 /min Pulse 2024-09-01 13:05:00.000 85 /min Pulse 2024-08-28 14:43:00.000 88 /min Pulse 2024-08-25 15:22:00.000 82 /min Pulse 2024-08-18 14:11:00.000 74 /min Pulse 2024-08-16 13:01:00.000 75 /min Pulse 2024-08-14 14:00:00.000 76 /min Pulse 2024-08-11 12:35:00.000 70 /min Pulse 2024-08-07 13:28:00.000 72 /min Pulse 2024-08-04 13:33:00.000 78 /min Pulse 2024-07-31 13:50:00.000 67 /min Pulse 2024-07-28 14:55:00.000 76 /min Pulse 2024-07-24 15:54:00.000 75 /min O2 Saturation (%) 2024-09-13 13:28:00.000 85 % O2 Saturation (%) 2024-09-11 13:17:00.000 90 % O2 Saturation (%) 2024-09-07 11:13:00.000 90 % O2 Saturation (%) 2024-09-01 13:05:00.000 91 % O2 Saturation (%) 2024-08-28 14:43:00.000 91 % O2 Saturation (%) 2024-08-25 15:22:00.000 91 % O2 Saturation (%) 2024-08-18 14:11:00.000 93 % O2 Saturation (%) 2024-08-16 13:01:00.000 90 % O2 Saturation (%) 2024-08-14 14:00:00.000 91 % O2 Saturation (%) 2024-08-11 12:35:00.000 91 % O2 Saturation (%) 2024-08-07 13:28:00.000 93 % O2 Saturation (%) 2024-08-04 13:33:00.000 92 % O2 Saturation (%) 2024-07-31 13:50:00.000 93 % O2 Saturation (%) 2024-07-28 14:55:00.000 90 % O2 Saturation (%) 2024-07-24 15:54:00.000 91 % Respirations 2024-09-13 13:28:00.000 19 /min Respirations 2024-09-11 13:17:00.000 18 /min Respirations 2024-09-07 11:13:00.000 18 /min Respirations 2024-09-01 13:05:00.000 19 /min Respirations 2024-08-28 14:43:00.000 18 /min Respirations 2024-08-25 15:22:00.000 16 /min Respirations 2024-08-18 14:11:00.000 18 /min Respirations 2024-08-16 13:01:00.000 16 /min Respirations 2024-08-14 14:00:00.000 18 /min Respirations 2024-08-11 12:35:00.000 18 /min Respirations 2024-08-07 13:28:00.000 19 /min Respirations 2024-08-04 13:33:00.000 16 /min Respirations 2024-07-31 13:50:00.000 17 /min Respirations 2024-07-28 14:55:00.000 18 /min Respirations 2024-07-24 15:54:00.000 18 /min Systolic Blood Pressure 2024-09-13 13:28:00.000 130 mm [Hg] Systolic Blood Pressure 2024-09-11 13:17:00.000 130 mm [Hg] Systolic Blood Pressure 2024-09-07 11:13:00.000 154 mm [Hg] Systolic Blood Pressure 2024-09-01 13:05:00.000 120 mm [Hg] Systolic Blood Pressure 2024-08-28 14:43:00.000 120 mm [Hg] Systolic Blood Pressure 2024-08-25 15:22:00.000 134 mm [Hg] Systolic Blood Pressure 2024-08-18 14:11:00.000 158 mm [Hg] Systolic Blood Pressure 2024-08-16 13:01:00.000 144 mm [Hg] Systolic Blood Pressure 2024-08-14 14:00:00.000 137 mm [Hg] Systolic Blood Pressure 2024-08-11 12:35:00.000 164 mm [Hg] Systolic Blood Pressure 2024-08-07 13:28:00.000 134 mm [Hg] Systolic Blood Pressure 2024-08-04 13:33:00.000 154 mm [Hg] Systolic Blood Pressure 2024-07-31 13:50:00.000 140 mm [Hg] Systolic Blood Pressure 2024-07-28 14:55:00.000 121 mm [Hg] Systolic Blood Pressure 2024-07-24 15:54:00.000 135 mm [Hg] Diastolic Blood Pressure 2024-09-13 13:28:00.000 80 mm [Hg] Diastolic Blood Pressure 2024-09-11 13:17:00.000 94 mm [Hg] Diastolic Blood Pressure 2024-09-07 11:13:00.000 87 mm [Hg] Diastolic Blood Pressure 2024-09-01 13:05:00.000 70 mm [Hg] Diastolic Blood Pressure 2024-08-28 14:43:00.000 80 mm [Hg] Diastolic Blood Pressure 2024-08-25 15:22:00.000 98 mm [Hg] Diastolic Blood Pressure 2024-08-18 14:11:00.000 80 mm [Hg] Diastolic Blood Pressure 2024-08-16 13:01:00.000 84 mm [Hg] Diastolic Blood Pressure 2024-08-14 14:00:00.000 78 mm [Hg] Diastolic Blood Pressure 2024-08-11 12:35:00.000 96 mm [Hg] Diastolic Blood Pressure 2024-08-07 13:28:00.000 84 mm [Hg] Diastolic Blood Pressure 2024-08-04 13:33:00.000 98 mm [Hg] Diastolic Blood Pressure 2024-07-31 13:50:00.000 84 mm [Hg] Diastolic Blood Pressure 2024-07-28 14:55:00.000 79 mm [Hg] Diastolic Blood Pressure 2024-07-24 15:54:00.000 87 mm [Hg] Plan of Treatment Planned Activity Planned Date Details Comments Future Scheduled Test SKILLED NU RSE TO EVALUATE PATIENT, IDENTIFY PRIMARY AND CO-MORBID CONDITIONS CODED PER CODING GUIDELINES INCLUDING LYMPHEDEMA, NOT ELSEWHERE CLASSIFIED, EMPHYSEMA, UNSPECIFIED, MULTIPLE SCLEROSIS, HYPERTENSIVE HEART DISEASE WITH HEART FAILURE, HEART FAILURE, UNSPECIFIED, MORBID (SEVERE) OBESITY DUE TO EXCESS CALORIES, AND DEVELOP PATIENT SPECIFIC PLAN OF CARE THAT INCLUDES PATIENT GOAL FOR HOME HEALTH. [code = SKILLED NURSE TO EVALUATE PATIENT, IDENTIFY PRIMARY AND CO-MORBID CONDITIONS CODED PER CODING GUIDELINES INCLUDING LYMPHEDEMA, NOT ELSEWHERE CLASSIFIED, EMPHYSEMA, UNSPECIFIED, MULTIPLE SCLEROSIS, HYPERTENSIVE HEART DISEASE WITH HEART FAILURE, HEART FAILURE, UNSPECIFIED, MORBID (SEVERE) OBESITY DUE TO EXCESS CALORIES, AND DEVELOP PATIENT SPECIFIC PLAN OF CARE THAT INCLUDES PATIENT GOAL FOR HOME HEALTH.] Future Scheduled Test [facility] MAY ACCEPT ORDERS FROM THE FOLLOWING PHYSICIANS: PCP AND ALL TREATING PHYSICIANS [code = HOME HEALTH AGENCY MAY ACCEPT ORDERS FROM THE FOLLOWING PHYSICIANS: PCP AND ALL TREATING PHYSICIANS] Future Scheduled Test SKILLED NU RSE FOR O/A AND SKILLED TEACHING RELATED TO SIGNS AND SYMPTOMS OF INFECTION AND INFECTION CONTROL MEASURES. [code = SKILLED NURSE FOR O/A AND SKILLED TEACHING RELATED TO SIGNS AND SYMPTOMS OF INFECTION AND INFECTION CONTROL MEASURES.] Future Scheduled Test SN TO PERF ORM WOUND CARE TO LEFT CIRCUMFERENTIAL LOWER LEG AND RIGHT CIRCUMFERENTIAL LOWER LEG FOLLOWS REMOVE OLD DRESSING AND DISPOSE OF PER COMPANY POLICY CLEANSE WOUND WITH SOAP AND WATER DRY THOROUGHLY-PREVIOUSLY CLARIFIED APPLY DERMAGINATE AG APPLY HYDRALOCK SA SECURE WITH COFLEX TLC 2 LAYER COMPRESSION CHANGE DRESSING 3X A WEEK WOUND CARE WILL BE PERFORMED BY TRAINED CAREGIVER ON DAYS WHEN SKILLED NURSE IS NOT SCHEDULED FOR A VISIT. DISCONTINUE WOUND CARE/SUPPLIES ONCE WOUND IS HEALED. [code = SN TO PERFORM WOUND CARE TO LEFT CIRCUMFERENTIAL LOWER LEG AND RIGHT CIRCUMFERENTIAL LOWER LEG FOLLOWS REMOVE OLD DRESSING AND DISPOSE OF PER COMPANY POLICY CLEANSE WOUND WITH SOAP AND WATER DRY THOROUGHLY-PREVIOUSLY CLARIFIED APPLY DERMAGINATE AG APPLY HYDRALOCK SA SECURE WITH COFLEX TLC 2 LAYER COMPRESSION CHANGE DRESSING 3X A WEEK WOUND CARE WILL BE PERFORMED BY TRAINED CAREGIVER ON DAYS WHEN SKILLED NURSE IS NOT SCHEDULED FOR A VISIT. DISCONTINUE WOUND CARE/SUPPLIES ONCE WOUND IS HEALED.] Future Scheduled Test SKILLED NU RSE FOR O/A, TEACHING AND SELF-MANAGEMENT RELATED TO HEART FAILURE. INSTRUCT PATIENT/CAREGIVER ON SIGNS AND SYMPTOMS OF EXACERBATION TO REPORT AND IMPORTANCE OF OBTAINING AND RECORDING DAILY WEIGHT AND/OR MEASUREMENTS. SN OR TRAINED PATIENT/CAREGIVER TO OBTAIN WEIGHT DAILY AND WEIGHT GAIN OF 2 LBS OVERNIGHT OR 5 LBS IN 1 WEEK TO BE REPORTED TO PHYSICIAN/PROVIDER. IF UNABLE TO WEIGH PATIENT, SN OR TRAINED PATIENT/CAREGIVER TO OBTAIN MEASUREMENT OF RT CALF IN CM DAILY AND REPORT AN INCREASE OF 2 CM TO PHYSICIAN/PROVIDER. [code = SKILLED NURSE FOR O/A, TEACHING AND SELF-MANAGEMENT RELATED TO HEART FAILURE. INSTRUCT PATIENT/CAREGIVER ON SIGNS AND SYMPTOMS OF EXACERBATION TO REPORT AND IMPORTANCE OF OBTAINING AND RECORDING DAILY WEIGHT AND/OR MEASUREMENTS. SN OR TRAINED PATIENT/CAREGIVER TO OBTAIN WEIGHT DAILY AND WEIGHT GAIN OF 2 LBS OVERNIGHT OR 5 LBS IN 1 WEEK TO BE REPORTED TO PHYSICIAN/PROVIDER. IF UNABLE TO WEIGH PATIENT, SN OR TRAINED PATIENT/CAREGIVER TO OBTAIN MEASUREMENT OF RT CALF IN CM DAILY AND REPORT AN INCREASE OF 2 CM TO PHYSICIAN/PROVIDER.] Future Scheduled Test VIRTUAL SIT FREQUENCY: 12 PRN VIRTUAL VISITS MAY BE PERFORMED UTILIZING TELECOMMUNICATIONS SYSTEM TO OPTIMIZE SKILLED SERVICES FURNISHED ON THE PLAN OF CARE. SKILLED NURSE TO ESTABLISH SUPPORT MEASURES TO MINIMIZE RISK OF REHOSPITALIZATION, AND INSTRUCT PATIENT/CAREGIVER ON METHODS TO REDUCE AVOIDABLE HOSPITALIZATION. [code = VIRTUAL VISIT FREQUENCY: 12 PRN VIRTUAL VISITS MAY BE PERFORMED UTILIZING TELECOMMUNICATIONS SYSTEM TO OPTIMIZE SKILLED SERVICES FURNISHED ON THE PLAN OF CARE. SKILLED NURSE TO ESTABLISH SUPPORT MEASURES TO MINIMIZE RISK OF REHOSPITALIZATION, AND INSTRUCT PATIENT/CAREGIVER ON METHODS TO REDUCE AVOIDABLE HOSPITALIZATION.] Future Scheduled Test PATIENT AUGUSTIN S A RISK OF HOSPITALIZATION AND ED USE. SKILLED NURSE TO ESTABLISH SUPPORT MEASURES TO MINIMIZE RISK OF HOSPITALIZATION AND ED USE, AND INSTRUCT PATIENT/CAREGIVER ON METHODS TO REDUCE AVOIDABLE HOSPITALIZATION AND ED USE. [code = PATIENT HAS A RISK OF HOSPITALIZATION AND ED USE. SKILLED NURSE TO ESTABLISH SUPPORT MEASURES TO MINIMIZE RISK OF HOSPITALIZATION AND ED USE, AND INSTRUCT PATIENT/CAREGIVER ON METHODS TO REDUCE AVOIDABLE HOSPITALIZATION AND ED USE.] Future Scheduled Test SKILLED NU RSE TO PROVIDE INSTRUCTION TO PATIENT/CAREGIVER RELATED TO DISCHARGE PLANNING. [code = SKILLED NURSE TO PROVIDE INSTRUCTION TO PATIENT/CAREGIVER RELATED TO DISCHARGE PLANNING.] Future Scheduled Test SKILLED NU RSE TO PERFORM ENVIRONMENTAL SAFETY RISK ASSESSMENT AND FALL RISK ASSESSMENT AND PROVIDE INSTRUCTION TO IMPLEMENT ENVIRONMENTAL SAFETY AND FALL PREVENTION STRATEGIES THROUGHOUT THE CERTIFICATION PERIOD. SKILLED NURSE WILL MAINTAIN SITUATIONAL AWARENESS AND WILL NOTIFY CLINICAL SUPERVISOR CARTOGRAPHY AND PHYSICIAN/PROVIDER WITH ANY CHANGE IN CONDITION. [code = SKILLED NURSE TO PERFORM ENVIRONMENTAL SAFETY RISK ASSESSMENT AND FALL RISK ASSESSMENT AND PROVIDE INSTRUCTION TO IMPLEMENT ENVIRONMENTAL SAFETY AND FALL PREVENTION STRATEGIES THROUGHOUT THE CERTIFICATION PERIOD. SKILLED NURSE WILL MAINTAIN SITUATIONAL AWARENESS AND WILL NOTIFY CLINICAL SUPERVISOR CARTOGRAPHY AND PHYSICIAN/PROVIDER WITH ANY CHANGE IN CONDITION.] Future Scheduled Test SKILLED NU RSE FOR OBSERVATION AND ASSESSMENT OF PATIENTS PAIN LEVEL AND EFFECTIVENESS OF PAIN MANAGEMENT REGIMEN. SKILLED NURSE TO INSTRUCT PATIENT/CAREGIVER REGARDING PHARMACOLOGIC AND NON-PHARMACOLOGIC PAIN CONTROL MEASURES. SKILLED NURSE TO REPORT TO PHYSICIAN IF PAIN LEVEL IS OUTSIDE OF ESTABLISHED PARAMETERS. [code = SKILLED NURSE FOR OBSERVATION AND ASSESSMENT OF PATIENTS PAIN LEVEL AND EFFECTIVENESS OF PAIN MANAGEMENT REGIMEN. SKILLED NURSE TO INSTRUCT PATIENT/CAREGIVER REGARDING PHARMACOLOGIC AND NON-PHARMACOLOGIC PAIN CONTROL MEASURES. SKILLED NURSE TO REPORT TO PHYSICIAN IF PAIN LEVEL IS OUTSIDE OF ESTABLISHED PARAMETERS.] Future Scheduled Test SKILLED NU RSE TO ASSESS PATIENT'S SKIN INTEGRITY AND INSTRUCT PATIENT/CAREGIVER ON MEASURES TO PREVENT PRESSURE ULCERS. [code = SKILLED NURSE TO ASSESS PATIENT'S SKIN INTEGRITY AND INSTRUCT PATIENT/CAREGIVER ON MEASURES TO PREVENT PRESSURE ULCERS.] Future Scheduled Test SKILLED NU RSE TO REVIEW PATIENT MEDICATIONS (PRESCRIPTION/OTC). INSTRUCT PATIENT/CAREGIVER ON ALL MEDICATIONS INCLUDING PURPOSE, WHEN TO TAKE, IMPORTANCE OF MEDICATION ADHERENCE, MONITORING OF EFFECTIVENESS, ADVERSE DRUG REACTIONS, POSSIBLE SIDE EFFECTS, AND WHEN TO NOTIFY AGENCY OR PHYSICIAN/PROVIDER OF ANY CONCERNS. [code = SKILLED NURSE TO REVIEW PATIENT MEDICATIONS (PRESCRIPTION/OTC). INSTRUCT PATIENT/CAREGIVER ON ALL MEDICATIONS INCLUDING PURPOSE, WHEN TO TAKE, IMPORTANCE OF MEDICATION ADHERENCE, MONITORING OF EFFECTIVENESS, ADVERSE DRUG REACTIONS, POSSIBLE SIDE EFFECTS, AND WHEN TO NOTIFY AGENCY OR PHYSICIAN/PROVIDER OF ANY CONCERNS.] Goal 2023-09-22 Patient Goal - HEAL WOUNDS Goal 2023-11-22 Patient Goal - HEAL WOUNDS Goal 2024-01-19 Patient Goal - HEAL WOUNDS Goal 2024-03-20 Patient Goal - HEAL WOUNDS Goal 2024-05-19 Patient Goal - HEAL WOUNDS Goal 2024-07-21 Patient Goal - HEAL WOUNDS Goal Patient Goal - HEAL WOUNDS Goal Provider Goal - A PLAN OF CARE WILL BE ESTABLISHED THAT MEETS PATIENT'S MCC NEEDS AND INCLUDES PATIENT GOAL FOR HOME HEALTH. Goal Provider Goal - ADDITIONAL ORDERS WILL BE RECEIVED FROM ALTERNATE PHYSICIAN IN A TIMELY MANNER THROUGHOUT THE CERTIFICATION PERIOD. Goal Provider Goal - PATIENT/CAREGIVER WILL VERBALIZE/DEMONSTRATE UNDERSTANDING OF S/S OF INFECTION AND INFECTION CONTROL MEASURES. SIGNS AND SYMPTOMS OF INFECTION WILL BE IDENTIFIED AND PHYSICIAN NOTIFIED FOR PROMPT INTERVENTION THROUGHOUT THE CERTIFICATION PERIOD. Goal Provider Goal - WOUND CARE WILL BE COMPLETED AND PATIENT WILL HAVE IMPROVED WOUND STATUS EVIDENCED BY NO SIGNS AND SYMPTOMS OF INFECTION, DECREASED WOUND SIZE, AND/OR NO COMPLICATIONS BY THE END OF THE CERTIFICATION PERIOD. Goal Provider Goal - PATIENT/CAREGIVER WILL VERBALIZE/DEMONSTRATE KNOWLEDGE AND MANAGEMENT OF HEART FAILURE DISEASE PROCESS BY END OF EPISODE. Goal Provider Goal - PATIENT/CAREGIVER WILL UTILIZE VIRTUAL VISITS TO ACHIEVE GOALS OUTLINED ON THE PLAN OF CARE. PATIENT WILL HAVE SUPPORT MEASURES ESTABLISHED TO PREVENT HOSPITALIZATION AND PATIENT/CAREGIVER WILL VERBALIZE/DEMONSTRATE METHODS TO REDUCE AVOIDABLE HOSPITALIZATION THROUGHOUT THE CERTIFICATION PERIOD. Goal Provider Goal - PATIENT WILL HAVE SUPPORT MEASURES ESTABLISHED TO PREVENT HOSPITALIZATION AND ED USE AND PATIENT/CAREGIVER WILL VERBALIZE/DEMONSTRATE METHODS TO REDUCE AVOIDABLE HOSPITALIZATION AND ED USE BY END OF EPISODE. Goal Provider Goal - PATIENT/CAREGIVER WILL VERBALIZE UNDERSTANDING OF DISCHARGE PLANNING INSTRUCTIONS BY DATE OF DISCHARGE. Goal Provider Goal - PATIENT/CAREGIVER WILL VERBALIZE/DEMONSTRATE EFFECTIVE ENVIRONMENTAL SAFETY AND FALL PREVENTION STRATEGIES, WILL REMAIN SAFE IN THE COMMUNITY, AND WILL BE FREE OF DANGER TO SELF AND OTHERS THROUGHOUT THE CERTIFICATION PERIOD. Goal Provider Goal - PATIENT/CAREGIVER WILL DEMONSTRATE UNDERSTANDING OF PHARMACOLOGIC AND NONPHARMACOLOGIC PAIN CONTROL MEASURES AND PATIENT WILL HAVE IMPROVEMENT IN PAIN INTERFERING WITH ACTIVITY EVIDENCED BY PAIN AT A LEVEL THAT IS ACCEPTABLE TO THE PATIENT AND PAIN LEVEL WITHIN ESTABLISHED PARAMETERS BY END OF CERTIFICATION PERIOD. Goal Provider Goal - PATIENT/CAREGIVER WILL VERBALIZE UNDERSTANDING OF PRESSURE ULCER PREVENTION BY END OF THE EPISODE. Goal Provider Goal - PATIENT/CAREGIVER WILL VERBALIZE UNDERSTANDING OF EDUCATION PROVIDED ON MEDICATIONS BY THE END OF THE CERTIFICATION PERIOD. Progress Notes Progress Notes <paragraph>[Visit Date: 2024 by REDDY RODGERS LPN]:</paragraph><paragraph>PATIENT SITTING UP IN LIVING AREA WITH CANE IN REACH. A O X 4 WITH CLEAR SPEECH. SPO2 85% RA. REFUSES ER OR AMBULANCE. REFUSES NURSE TO CALL PCP. PATIENT TAKING INHALERS AND STATES WILL FIND NEBULIZER. LCTA AT THIS TIME. MOIST, NONPRODUCTIVE COUGH NOTED. HR RRR. BLE WOUND CARE PROVIDED PER MD ORDERS. TOLERATED WITHOUT DIFFICULTY. VOICES NO OTHER C/O AT THIS TIME. LEFT IN CARE OF SELF.</paragraph> <paragraph>[Visit Date: 2024 by LUIZ SIMMONS RN]:</paragraph><paragraph>PATIENT IS RECEIVING WOUND CARE TO BOTH LOWER EXTREMITIES FOR WOUNDS RELATED TO LYMPHEDEMA. ON TODAY'S VISIT, BOTH LEGS APPEARED MORE SWOLLEN COMPARED TO PREVIOUS VISITS. PATIENT REPORTED THAT HE REMOVES THE COMPRESSION WRAPS YESTERDAY AND DID NOT REAPPLY THEM, WHICH LIKELY CONTRIBUTED TO THE INCREASED EDEMA OBSERVED TODAY. MULTIPLE WOUNDS NOTED ON BOTH LEGS-SCATTERED AND DIFFUSE IN DISTRIBUTION. WOUNDS EXHIBITED MODERATE 2 SEROSANGUINEOUS DRAINAGE. NO SIGNS OF INFECTION PRESENT. WOUND CARE WAS COMPLETED PER PHYSICIAN ORDERS. PATIENT TOLERATED THE PROCEDURE WELL WITH NO SIGNS OF PAIN OR DISTRESS DURING CARE. PATIENT WAS LEFT IN THE CARE OF SELF WITH VERBAL REINFORCEMENT OF THE IMPORTANCE OF CONSISTENT COMPRESSION WRAP USE TO MANAGE EDEMA AND PROMOTE WOUND HEALING. WILL CONTINUE TO MONITOR WOUND STATUS AND EDEMA PROGRESSION ON SUBSEQUENT VISITS. Radha SIMMONS RN</paragraph> Encounters Start Date/Time End Date/Time Encounter Type Admission Type Attending [facility] Care Department Encounter ID Discharge Date Discharge Status Discharge Condition Discharge Reason Percent Goals Met 2024-07-22 00:00:00 2024-09-19 00:00:00 [facility] L[facility] ESQUIV[facility] [id number]
--- OUTSIDE RECORDS SUMMARY | 2024-09-18 19:00 | XMS_ITS | Clinical Summary ---
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 (CURRENT) USE OF ORAL HYPOGLYCEMIC DRUGS Active [...] gutierrez B12 tablet 07-27 00:00: 00 Yes [id number] 1 tablet DAILY 1 tablet DAILY (route: oral) Med Classific ation: Electroly te Balance-N utritiona l Products buprenorphi ne 2 mg-naloxone 0.5 mg sublingual tablet 07-27 00:00: 00 Yes [id number] 3 tablet 4 TIMES DAILY 3 tablet 4 TIMES DAILY (route: sublingual ) Med Classific ation: Chemical Dependenc y, Agents to Treat duloxetine 60 mg capsule,del ayed release 07-27 00:00: 00 Yes [id number] 1 capsule DAILY 1 capsule DAILY (route: oral) Med Classific ation: Central Nervous System Agents Eliquis 5 mg tablet 07-27 00:00: 00 Yes [id number] 1 tablet 2 TIMES DAILY 1 tablet 2 TIMES DAILY (route: oral) Med Classific ation: Hematolog ical Agents furosemide 80 mg tablet 07-27 00:00: 00 Yes [id number] 1 tablet 2 TIMES DAILY 1 tablet 2 TIMES DAILY (route: oral) Med Classific ation: Cardiovas cular Therapy Agents Jardiance 25 mg tablet 07-27 00:00: 00 Yes [id number] 1 tablet DAILY 1 tablet DAILY (route: oral) Med Classific ation: Endocrine levothyroxi ne 100 mcg capsule 07-27 00:00: 00 Yes [id number] 1 capsule DAILY 1 capsule DAILY (route: oral) Med Classific ation: Endocrine pregabalin 200 mg capsule 07-27 00:00: 00 Yes [id number] 1 capsule 3 TIMES DAILY 1 capsule 3 TIMES DAILY (route: oral) Med Classific ation: Central Nervous System Agents Vitamin D3 50 mcg (2,000 unit) capsule 07-27 00:00: 00 Yes [id number] 1 capsule DAILY 1 capsule DAILY (route: oral) Med Classific ation: Electroly te Balance-N utritiona l Products potassium chloride ER 20 mEq tablet,exte nded release 08-31 00:00: 00 Yes [id number] 0.5 tablet DAILY 0.5 tablet DAILY (route: oral) Med Classific ation: Electroly te Balance-N utritiona l Products melatonin 3 mg capsule 08-31 00:00: 00 Yes [id number] 2 capsule BEDTIME 2 capsule BEDTIME (route: oral) Med Classific ation: Central Nervous System Agents methocarbam ol 750 mg tablet 08-31 00:00: 00 03-23 10:04 :55.9 2 No [id number] 1 tablet 4 TIMES DAILY 1 tablet 4 TIMES DAILY (route: oral) Med Classific ation: Locomotor System nortriptyli ne 10 mg capsule 09-28 00:00: 00 Yes [id number] 1 capsule DIRECTED 1 capsule DIRECTED (route: oral) Med Classific ation: Central Nervous System Agents methocarbam ol 750 mg tablet 03-23 00:00: 00 Yes [id number] pain/muscle spasms 1 tablet 4 TIMES DAILY 1 tablet 4 TIMES DAILY (route: oral) Med Classific ation: Locomotor System penicillin V potassium 500 mg tablet 04-21 00:00: 00 05-02 23:59 :00 No [id number] 1 tablet DAILY 1 tablet DAILY (route: oral) Med Classific ation: Anti-Infe ctive Agents sulfamethox azole 800 mg-trimetho prim 160 mg tablet -14 00:00: 00 05-02 23:59 :00 No [id number] 1 tablet 2 TIMES DAILY 1 tablet 2 TIMES DAILY (route: oral) Med Classific ation: Anti-Infe ctive Agents amoxicillin 500 mg tablet 07-07 00:00: 00 07-17 23:59 :00 No [id number] 1 tablet 2 TIMES DAILY 1 tablet [...] MAINTAIN SITUATIONAL AWARENESS AND WILL NOTIFY CLINICAL TANK CLEANING SUPERVISOR AND PHYSICIAN/PROVIDER WITH ANY CHANGE IN CONDITION. [code = SKILLED NURSE TO PERFORM ENVIRONMENTAL SAFETY RISK ASSESSMENT AND FALL RISK ASSESSMENT AND PROVIDE INSTRUCTION TO IMPLEMENT ENVIRONMENTAL SAFETY AND FALL PREVENTION STRATEGIES THROUGHOUT THE CERTIFICATION PERIOD. SKILLED NURSE WILL MAINTAIN SITUATIONAL AWARENESS AND WILL NOTIFY CLINICAL TANK CLEANING SUPERVISOR AND PHYSICIAN/PROVIDER WITH ANY CHANGE IN CONDITION.] [...] CARE WILL BE ESTABLISHED THAT MEETS PATIENT'S RETIREMENT NEEDS AND INCLUDES PATIENT GOAL FOR HOME [...] End Date/Time Encounter Type Admission Type Attending [facility] Care Department Encounter ID Discharge Date Discharge Status Discharge Condition Discharge Reason Percent Goals Met 2024-07-22 00:00:00 2024-09-19 00:00:00 Outpatient [facility] LUIZ ESQUIVEL [facility] [id number]
== END 2024-09-18 14:41 | disposition home health service (06) | DRG 291 ==
LOC: ER 18:37 → MEDSURG 19:49
PROVIDERS: Student in an Organized Health Care Education/Training Program; Admitting Provider Internal Medicine; Emergency Provider Physician Assistant; PCP Family Medicine; Visit Provider Internal Medicine
DX: I11.0 Hypertensive heart disease with heart failure (principal); I50.33 Acute on chronic diastolic (congestive) heart failure; J96.22 Acute and chronic respiratory failure with hypercapnia; J96.21 Acute and chronic respiratory failure with hypoxia; J44.1 Chronic obstructive pulmonary disease with (acute) exacerbation; G73.3 Myasthenic syndromes in other diseases classified elsewhere; F17.210 Nicotine dependence, cigarettes, uncomplicated; Z99.89 Dependence on other enabling machines and devices; Z91.199 Patient's noncompliance with other medical treatment and regimen due to unspecified reason; E66.9 Obesity, unspecified; G89.29 Other chronic pain; M54.9 Dorsalgia, unspecified; I35.0 Nonrheumatic aortic (valve) stenosis; Z66 Do not resuscitate; Z68.36 Body mass index [BMI] 36.0-36.9, adult; Z79.51 Long term (current) use of inhaled steroids; Z79.01 Long term (current) use of anticoagulants; Z86.718 Personal history of other venous thrombosis and embolism; Z86.711 Personal history of pulmonary embolism
CPT/HCPCS: 36415; 36600; 71045; 80048; 80051; 80053; 80074; 82330; 82803; 82805; 83036; 83605; 83735; 83880; 84100; 84145; 84443; 84484; 85025; 87040; 87637; 93005; 94640; 94660; 94760; 96365; 96375; 97161; 97165; 99285; J0696; J1938; J2919; J3490; J8540; J9999

== ENCOUNTER → 2024-09-19 10:45 | Outpatient (BNVA) | payer OTHER, SELFPAY | PROVIDERS: PCP Family Medicine; Visit Provider Thoracic Surgery (Cardiothoracic Vascular Surgery) | DX: I89.0 Lymphedema, not elsewhere classified (principal); L97.821 Non-pressure chronic ulcer of other part of left lower leg limited to breakdown of skin; L97.811 Non-pressure chronic ulcer of other part of right lower leg limited to breakdown of skin | CPT/HCPCS: 97597; 97598; A6197; A6253 ==